=== PATIENT | male | born 1950 | race Caucasian/White ===

== ENCOUNTER 2017-05-25 22:51 | Inpatient (IN) | payer MEDICARE, OTHER ==
[2017-05-25] MEDS ORDERED: BISACODYL 10 MG SUPP PR (23:30)
[2017-05-25] MEDS ORDERED: ALBUTEROL 0.083% (NEB) 2.5 MG/3 ML AMP HHN (23:30)
[2017-05-25] MEDS: HEPARIN 5,000 UNIT/0.5 ML VIAL SC (23:30)
[2017-05-25] MEDS ORDERED: GLUCAGON 1 MG INJ IM (23:45)
[2017-05-25] MEDS ORDERED: GLUCOSE GEL 15 GRAM TUBE BUCCAL (23:45)
[2017-05-25] MEDS ORDERED: GLUCOSE GEL 15 GRAM TUBE PO ×2 (23:45)
[2017-05-26] MEDS ORDERED: PENDING SANTYL ORDER FOR WOUND CARE XX
[2017-05-26] MEDS: DEXTROSE 5%-0.45% NACL 1,000 ML IV ×4 (01:14→21:41)
[2017-05-26] MEDS: INSULIN ASPART [NOVOLOG] 3 ML PEN SC ×6 (01:20→21:33)
[2017-05-26] MEDS: ALBUTEROL 0.083% (NEB) 2.5 MG/3 ML AMP HHN ×6 (01:26→20:43)
[2017-05-26] MEDS: IPRATROPIUM (NEB) 0.5 MG/2.5 ML AMP HHN ×6 (01:26→20:43)
[2017-05-26 01:35] LABS: ADD MAN DIFF? NO
[2017-05-26 01:38] LABS: BASOPHILS % 0.3 % (0.0-2.0); EOSINOPHILS % 0.3 % (0.0-7.0); HEMATOCRIT 36.2 % (42.0-52.0); HEMOGLOBIN 11.6 g/dl (14.0-18.0); LYMPHOCYTES # 1.7 10^3/ul (0.8-2.9); LYMPHOCYTES % 15.7 % (15.0-51.0); MEAN CORPUSCULAR HEMOGLOBIN 28.4 pg (29.0-33.0); MEAN CORPUSCULAR VOLUME 88.5 fl (82.0-101.0); MEAN PLATELET VOLUME 12.9 fl (7.4-10.4); MONOCYTE # 0.6 10^3/ul (0.3-0.9); MONOCYTES % 5.1 % (0.0-11.0); NEUTROPHIL # 8.6 10^3/ul (1.6-7.5); NEUTROPHILS % 78.3 % (39.0-77.0); PLATELET COUNT 203 10^3/UL (140-415); RED BLOOD COUNT 4.09 10^6/ul (4.70-6.10); RED CELL DISTRIBUTION WIDTH 16.8 % (11.5-14.5)
[2017-05-26 02:06] LABS: INR 1.12; PROTIME 14.4 Sec (12.2-14.2); PT RATIO 1.1
[2017-05-26 02:07] LABS: PARTIAL THROMBOPLASTIN TIME 44.4 Sec (25.0-35.0)
[2017-05-26 02:08] LABS: ALANINE AMINOTRANSFERASE 77 IU/L (13-69); ALBUMIN 3.5 g/dl (3.3-4.9); ALBUMIN/GLOBULIN RATIO 0.64; ALKALINE PHOSPHATASE 168 IU/L (42-121); ANION GAP 13 (8-16); ASPARTATE AMINO TRANSFERASE 66 IU/L (15-46); BILIRUBIN,INDIRECT 0.5 mg/dl (0-1.1); BILIRUBIN,TOTAL 0.5 mg/dl (0.2-1.3); BLOOD UREA NITROGEN 29 mg/dl (7-20); CALCIUM 9.3 mg/dl (8.4-10.2); CARBON DIOXIDE 29 mmol/L (21-31); CHLORIDE 100 mmol/L (97-110); CREATININE 0.67 mg/dl (0.61-1.24); GLUCOSE 203 mg/dl (70-220); MAGNESIUM 1.9 mg/dl (1.7-2.5); PHOSPHORUS 3.8 mg/dl (2.5-4.9); POTASSIUM 3.8 mmol/L (3.5-5.1); SODIUM 138 mmol/L (135-144); TOTAL PROTEIN 8.9 g/dl (6.1-8.1)
[2017-05-26] MEDS ORDERED: NACL 0.9% 3 ML SYG IV (04:30)
[2017-05-26] MEDS: PANTOPRAZOLE 40 MG INJ IV (05:51)
[2017-05-26] MEDS: PIPER-TAZO 3.375 GM IV (PMX) 100 ML IVPB ×3 (05:51→21:18)
[2017-05-26] MEDS ORDERED: [UNRECOGNIZED DRUG - OTHER] IVPB (06:00)
[2017-05-26] MEDS ORDERED: PIPERACILLIN TAZO DEXTROSE ISO IVPB (06:00)
[2017-05-26] MEDS ORDERED: PANTOPRAZOLE 40 MG INJ IV (06:00)
[2017-05-26] MEDS ORDERED: COLLAGENASE 30 GM TUBE TOP (09:00)
[2017-05-26] MEDS: BACITRACIN 0.9 GM OINT TOP (09:00)
[2017-05-26] MEDS: LEVETIRACETAM 500 MG (PMX) 100 ML IVPB (09:54)
[2017-05-26] MEDS: INSULIN DETEMIR [LEVEMIR] 3ML CART SC ×2 (10:26→21:34)
[2017-05-26] MEDS: HEPARIN 5,000 UNIT/0.5 ML VIAL SC ×2 (10:27→21:34)
[2017-05-26] MEDS: ZINC OXIDE 20% 30 GM OINT TOP (12:27)
[2017-05-26] MEDS: NYSTATIN 30 GM POWDER BTL TOP (18:37)
[2017-05-26] MEDS: COLLAGENASE 30 GM TUBE TOP (18:38)
[2017-05-26] MEDS: FAMOTIDINE 20 MG INJ IV (21:22)
[2017-05-27] MEDS: ALBUTEROL 0.083% (NEB) 2.5 MG/3 ML AMP HHN ×6 (00:16→20:25)
[2017-05-27] MEDS: IPRATROPIUM (NEB) 0.5 MG/2.5 ML AMP HHN ×6 (00:16→20:25)
[2017-05-27] MEDS ORDERED: ACCU-CHEK XX (02:00)
[2017-05-27] MEDS: INSULIN ASPART [NOVOLOG] 3 ML PEN SC ×6 (02:45→20:42)
[2017-05-27 06:09] LABS: ADD MAN DIFF? NO
[2017-05-27 06:16] LABS: WHITE BLOOD COUNT 6.3 10^3/ul (4.8-10.8)
[2017-05-27 06:16] LABS: ABNORMAL IP MESSAGE 1; BASOPHILS % 0.5 % (0.0-2.0); EOSINOPHILS # 0.1 10^3/ul (0.0-0.5); EOSINOPHILS % 1.4 % (0.0-7.0); HEMATOCRIT 36.5 % (42.0-52.0); LYMPHOCYTES # 1.6 10^3/ul (0.8-2.9); LYMPHOCYTES % 25.5 % (15.0-51.0); MEAN CORPUSCULAR HGB CONC 30.1 g/dl (32.0-37.0); MEAN CORPUSCULAR VOLUME 92.9 fl (82.0-101.0); MEAN PLATELET VOLUME 13.6 fl (7.4-10.4); MONOCYTE # 0.4 10^3/ul (0.3-0.9); MONOCYTES % 6.3 % (0.0-11.0); NEUTROPHIL # 4.2 10^3/ul (1.6-7.5); PLATELET COUNT 115 10^3/UL (140-415); POSITIVE DIFF @See below; RED BLOOD COUNT 3.93 10^6/ul (4.70-6.10); RED CELL DISTRIBUTION WIDTH 16.6 % (11.5-14.5)
[2017-05-27] MEDS: PIPER-TAZO 3.375 GM IV (PMX) 100 ML IVPB ×3 (06:26→22:13)
[2017-05-27] MEDS: DEXTROSE 5%-0.45% NACL 1,000 ML IV ×3 (06:28→19:56)
[2017-05-27 06:51] LABS: ALANINE AMINOTRANSFERASE 95 IU/L (13-69); ALBUMIN 3.4 g/dl (3.3-4.9); ALBUMIN/GLOBULIN RATIO 0.61; ALKALINE PHOSPHATASE 150 IU/L (42-121); ANION GAP 11 (8-16); ASPARTATE AMINO TRANSFERASE 116 IU/L (15-46); BILIRUBIN,INDIRECT 0.7 mg/dl (0-1.1); BILIRUBIN,TOTAL 0.8 mg/dl (0.2-1.3); BLOOD UREA NITROGEN 17 mg/dl (7-20); CALCIUM 8.3 mg/dl (8.4-10.2); CARBON DIOXIDE 26 mmol/L (21-31); CHLORIDE 103 mmol/L (97-110); CREATININE 0.61 mg/dl (0.61-1.24); GLUCOSE 127 mg/dl (70-220); MAGNESIUM 1.8 mg/dl (1.7-2.5); POTASSIUM 3.9 mmol/L (3.5-5.1); SODIUM 136 mmol/L (135-144); TOTAL PROTEIN 8.9 g/dl (6.1-8.1)
[2017-05-27] MEDS: LEVETIRACETAM 500 MG (PMX) 100 ML IVPB (08:21)
[2017-05-27] MEDS: COLLAGENASE 30 GM TUBE TOP (08:22)
[2017-05-27] MEDS: BACITRACIN 0.5%/ZINC 28.35 GM OINT TOP ×2 (08:22→20:43)
[2017-05-27] MEDS: FAMOTIDINE 20 MG INJ IV ×2 (08:22→20:40)
[2017-05-27] MEDS: ZINC OXIDE 20% 30 GM OINT TOP (08:23)
[2017-05-27] MEDS: NYSTATIN 30 GM POWDER BTL TOP ×2 (08:23→20:43)
[2017-05-27] MEDS: INSULIN DETEMIR [LEVEMIR] 3ML CART SC (08:35)
[2017-05-27] MEDS: HEPARIN 5,000 UNIT/0.5 ML VIAL SC ×2 (08:36→20:49)
[2017-05-27 09:25] LABS: HEMOGLOBIN A1C 7.5 % (0-5.9)
[2017-05-27] MEDS: DEXTROSE 50% 50 ML SYRINGE IV (17:43)
[2017-05-27 18:51] LABS: GLUCOSE 183 mg/dl (70-220)
[2017-05-28] MEDS: INSULIN ASPART [NOVOLOG] 3 ML PEN SC ×8 (01:00→20:56)
[2017-05-28] MEDS: ALTEPLASE (CATHFLO) 2 MG INJ CATHETER (01:19)
[2017-05-28] MEDS: IPRATROPIUM (NEB) 0.5 MG/2.5 ML AMP HHN ×6 (01:30→20:43)
[2017-05-28] MEDS: ALBUTEROL 0.083% (NEB) 2.5 MG/3 ML AMP HHN ×6 (01:30→20:43)
[2017-05-28] MEDS: DEXTROSE 5%-0.45% NACL 1,000 ML IV ×4 (02:00→21:54)
[2017-05-28 06:04] LABS: ADD MAN DIFF? NO
[2017-05-28] MEDS: PIPER-TAZO 3.375 GM IV (PMX) 100 ML IVPB ×3 (06:05→21:54)
[2017-05-28 06:12] LABS: ABNORMAL IP MESSAGE 1; BASOPHILS % 0.4 % (0.0-2.0); EOSINOPHILS # 0.1 10^3/ul (0.0-0.5); EOSINOPHILS % 1.9 % (0.0-7.0); HEMATOCRIT 30.4 % (42.0-52.0); HEMOGLOBIN 9.4 g/dl (14.0-18.0); LYMPHOCYTES # 1.1 10^3/ul (0.8-2.9); LYMPHOCYTES % 20.5 % (15.0-51.0); MEAN CORPUSCULAR HEMOGLOBIN 28.1 pg (29.0-33.0); MEAN CORPUSCULAR HGB CONC 30.9 g/dl (32.0-37.0); MEAN PLATELET VOLUME 13.4 fl (7.4-10.4); MONOCYTE # 0.3 10^3/ul (0.3-0.9); MONOCYTES % 5.3 % (0.0-11.0); NEUTROPHIL # 3.8 10^3/ul (1.6-7.5); NEUTROPHILS % 71.7 % (39.0-77.0); PLATELET COUNT 141 10^3/UL (140-415); POSITIVE DIFF @See below; RED BLOOD COUNT 3.34 10^6/ul (4.70-6.10); RED CELL DISTRIBUTION WIDTH 16.2 % (11.5-14.5)
[2017-05-28 06:12] LABS: WHITE BLOOD COUNT 5.3 10^3/ul (4.8-10.8)
[2017-05-28 07:01] LABS: ALANINE AMINOTRANSFERASE 147 IU/L (13-69); ALBUMIN/GLOBULIN RATIO 0.62; ALKALINE PHOSPHATASE 154 IU/L (42-121); ANION GAP 11 (8-16); ASPARTATE AMINO TRANSFERASE 160 IU/L (15-46); BILIRUBIN,INDIRECT 0.7 mg/dl (0-1.1); BILIRUBIN,TOTAL 1.5 mg/dl (0.2-1.3); BLOOD UREA NITROGEN 8 mg/dl (7-20); CALCIUM 7.7 mg/dl (8.4-10.2); CARBON DIOXIDE 24 mmol/L (21-31); CHLORIDE 104 mmol/L (97-110); CREATININE 0.56 mg/dl (0.61-1.24); SODIUM 136 mmol/L (135-144); TOTAL PROTEIN 7.8 g/dl (6.1-8.1)
[2017-05-28 07:20] LABS: POTASSIUM 2.9 mmol/L (3.5-5.1)
[2017-05-28 07:21] LABS: GLUCOSE 426 mg/dl (70-220)
[2017-05-28] MEDS: BACITRACIN 0.5%/ZINC 28.35 GM OINT TOP ×2 (08:14→20:56)
[2017-05-28] MEDS: LEVETIRACETAM 500 MG (PMX) 100 ML IVPB (08:14)
[2017-05-28] MEDS: FAMOTIDINE 20 MG INJ IV ×2 (08:14→20:52)
[2017-05-28] MEDS: NYSTATIN 30 GM POWDER BTL TOP ×2 (08:15→20:57)
[2017-05-28] MEDS: COLLAGENASE 30 GM TUBE TOP (08:15)
[2017-05-28] MEDS: HEPARIN 5,000 UNIT/0.5 ML VIAL SC ×2 (08:34→21:01)
[2017-05-28] MEDS: POTASSIUM CHLORIDE 250 ML IVPB ×2 (09:28→14:06)
[2017-05-28] MEDS: INSULIN DETEMIR [LEVEMIR] 3ML CART SC (09:54)
[2017-05-28] MEDS: ZINC OXIDE 20% 30 GM OINT TOP (09:58)
[2017-05-28] MEDS: DEXTROSE 50% 50 ML SYRINGE IV (17:51)
[2017-05-28 18:40] LABS: GLUCOSE 63 mg/dl (70-220)
[2017-05-29] MEDS: INSULIN ASPART [NOVOLOG] 3 ML PEN SC ×6 (01:00→20:40)
[2017-05-29] MEDS: IPRATROPIUM (NEB) 0.5 MG/2.5 ML AMP HHN ×6 (01:45→21:24)
[2017-05-29] MEDS: ALBUTEROL 0.083% (NEB) 2.5 MG/3 ML AMP HHN ×6 (01:46→21:24)
[2017-05-29] MEDS: PIPER-TAZO 3.375 GM IV (PMX) 100 ML IVPB ×3 (05:32→22:32)
[2017-05-29 06:11] LABS: ADD MAN DIFF? NO
[2017-05-29 06:18] LABS: WHITE BLOOD COUNT 6.1 10^3/ul (4.8-10.8)
[2017-05-29 06:18] LABS: ABNORMAL IP MESSAGE 1; BASOPHILS % 0.3 % (0.0-2.0); EOSINOPHILS % 0.7 % (0.0-7.0); HEMATOCRIT 27.9 % (42.0-52.0); HEMOGLOBIN 8.7 g/dl (14.0-18.0); LYMPHOCYTES # 1.2 10^3/ul (0.8-2.9); LYMPHOCYTES % 18.8 % (15.0-51.0); MEAN CORPUSCULAR HEMOGLOBIN 28.3 pg (29.0-33.0); MEAN CORPUSCULAR HGB CONC 31.2 g/dl (32.0-37.0); MEAN CORPUSCULAR VOLUME 90.9 fl (82.0-101.0); MEAN PLATELET VOLUME 13.2 fl (7.4-10.4); MONOCYTE # 0.2 10^3/ul (0.3-0.9); MONOCYTES % 3.8 % (0.0-11.0); NEUTROPHIL # 4.7 10^3/ul (1.6-7.5); NEUTROPHILS % 76.1 % (39.0-77.0); PLATELET COUNT 126 10^3/UL (140-415); POSITIVE DIFF @See below; RED BLOOD COUNT 3.07 10^6/ul (4.70-6.10); RED CELL DISTRIBUTION WIDTH 16.1 % (11.5-14.5)
[2017-05-29 06:29] LABS: INR 1.15; PROTIME 14.7 Sec (12.2-14.2); PT RATIO 1.1
[2017-05-29 06:30] LABS: PARTIAL THROMBOPLASTIN TIME 33.4 Sec (25.0-35.0)
[2017-05-29] MEDS: FAMOTIDINE 20 MG INJ IV ×2 (07:57→20:40)
[2017-05-29] MEDS: LEVETIRACETAM 500 MG (PMX) 100 ML IVPB (07:57)
[2017-05-29] MEDS: DEXTROSE 5%-0.45% NACL 1,000 ML IV ×3 (08:00→23:16)
[2017-05-29] MEDS: INSULIN DETEMIR [LEVEMIR] 3ML CART SC (08:11)
[2017-05-29] MEDS: HEPARIN 5,000 UNIT/0.5 ML VIAL SC ×2 (08:12→20:44)
[2017-05-29 08:53] LABS: ALANINE AMINOTRANSFERASE 128 IU/L (13-69); ALBUMIN 3.2 g/dl (3.3-4.9); ALBUMIN/GLOBULIN RATIO 0.59; ALKALINE PHOSPHATASE 165 IU/L (42-121); ANION GAP 10 (8-16); ASPARTATE AMINO TRANSFERASE 102 IU/L (15-46); BLOOD UREA NITROGEN 5 mg/dl (7-20); CALCIUM 8.2 mg/dl (8.4-10.2); CARBON DIOXIDE 24 mmol/L (21-31); CHLORIDE 107 mmol/L (97-110); CREATININE 0.64 mg/dl (0.61-1.24); GLUCOSE 183 mg/dl (70-220); POTASSIUM 3.8 mmol/L (3.5-5.1); SODIUM 137 mmol/L (135-144); TOTAL PROTEIN 8.6 g/dl (6.1-8.1)
[2017-05-29 09:29] LABS: BILIRUBIN,INDIRECT 0.6 mg/dl (0-1.1); BILIRUBIN,TOTAL 0.6 mg/dl (0.2-1.3)
[2017-05-29] MEDS: NYSTATIN 30 GM POWDER BTL TOP ×2 (09:46→20:41)
[2017-05-29] MEDS: COLLAGENASE 30 GM TUBE TOP (09:46)
[2017-05-29] MEDS: BACITRACIN 0.5%/ZINC 28.35 GM OINT TOP ×2 (09:46→20:41)
[2017-05-29] MEDS: ZINC OXIDE 20% 30 GM OINT TOP (09:46)
[2017-05-30] MEDS: INSULIN ASPART [NOVOLOG] 3 ML PEN SC ×6 (01:00→21:00)
[2017-05-30] MEDS: IPRATROPIUM (NEB) 0.5 MG/2.5 ML AMP HHN ×6 (01:25→20:00)
[2017-05-30] MEDS: ALBUTEROL 0.083% (NEB) 2.5 MG/3 ML AMP HHN ×6 (01:25→20:00)
[2017-05-30] MEDS: PIPER-TAZO 3.375 GM IV (PMX) 100 ML IVPB ×3 (05:20→21:24)
[2017-05-30 05:45] LABS: ADD MAN DIFF? NO
[2017-05-30 05:55] LABS: WHITE BLOOD COUNT 9.6 10^3/ul (4.8-10.8)
[2017-05-30 05:55] LABS: BASOPHILS % 0.1 % (0.0-2.0); HEMATOCRIT 29.5 % (42.0-52.0); HEMOGLOBIN 9.1 g/dl (14.0-18.0); LYMPHOCYTES # 1.7 10^3/ul (0.8-2.9); LYMPHOCYTES % 17.7 % (15.0-51.0); MEAN CORPUSCULAR HEMOGLOBIN 27.8 pg (29.0-33.0); MEAN CORPUSCULAR HGB CONC 30.8 g/dl (32.0-37.0); MEAN CORPUSCULAR VOLUME 90.2 fl (82.0-101.0); MEAN PLATELET VOLUME 12.6 fl (7.4-10.4); MONOCYTE # 0.3 10^3/ul (0.3-0.9); MONOCYTES % 2.6 % (0.0-11.0); NEUTROPHIL # 7.6 10^3/ul (1.6-7.5); NEUTROPHILS % 79.3 % (39.0-77.0); PLATELET COUNT 126 10^3/UL (140-415); RED BLOOD COUNT 3.27 10^6/ul (4.70-6.10); RED CELL DISTRIBUTION WIDTH 15.9 % (11.5-14.5)
[2017-05-30 06:14] LABS: INR 1.37; PROTIME 16.9 Sec (12.2-14.2); PT RATIO 1.3
[2017-05-30 06:15] LABS: PARTIAL THROMBOPLASTIN TIME 50.3 Sec (25.0-35.0)
[2017-05-30 06:21] LABS: ALANINE AMINOTRANSFERASE 98 IU/L (13-69); ALBUMIN 2.9 g/dl (3.3-4.9); ALBUMIN/GLOBULIN RATIO 0.61; ALKALINE PHOSPHATASE 150 IU/L (42-121); ANION GAP 9 (8-16); ASPARTATE AMINO TRANSFERASE 58 IU/L (15-46); BILIRUBIN,INDIRECT 0.6 mg/dl (0-1.1); BILIRUBIN,TOTAL 0.6 mg/dl (0.2-1.3); BLOOD UREA NITROGEN 4 mg/dl (7-20); CALCIUM 8.3 mg/dl (8.4-10.2); CARBON DIOXIDE 23 mmol/L (21-31); CHLORIDE 108 mmol/L (97-110); CREATININE 0.61 mg/dl (0.61-1.24); GLUCOSE 188 mg/dl (70-220); POTASSIUM 3.3 mmol/L (3.5-5.1); SODIUM 137 mmol/L (135-144); TOTAL PROTEIN 7.6 g/dl (6.1-8.1)
[2017-05-30] MEDS: LEVETIRACETAM 500 MG (PMX) 100 ML IVPB (08:30)
[2017-05-30] MEDS: COLLAGENASE 30 GM TUBE TOP (08:30)
[2017-05-30] MEDS: NYSTATIN 30 GM POWDER BTL TOP ×2 (08:30→21:24)
[2017-05-30] MEDS: FAMOTIDINE 20 MG INJ IV ×2 (08:30→21:24)
[2017-05-30] MEDS: ZINC OXIDE 20% 30 GM OINT TOP (08:30)
[2017-05-30] MEDS: BACITRACIN 0.5%/ZINC 28.35 GM OINT TOP ×2 (08:30→21:24)
[2017-05-30] MEDS: INSULIN DETEMIR [LEVEMIR] 3ML CART SC (08:45)
[2017-05-30] MEDS: DEXTROSE 5%-0.45% NACL 1,000 ML IV (18:12)
[2017-05-31] MEDS: ALBUTEROL 0.083% (NEB) 2.5 MG/3 ML AMP HHN ×6 (00:54→20:13)
[2017-05-31] MEDS: IPRATROPIUM (NEB) 0.5 MG/2.5 ML AMP HHN ×6 (00:54→20:13)
[2017-05-31] MEDS: INSULIN ASPART [NOVOLOG] 3 ML PEN SC ×6 (01:00→20:28)
[2017-05-31] MEDS: PIPER-TAZO 3.375 GM IV (PMX) 100 ML IVPB ×3 (05:26→21:27)
[2017-05-31 05:31] LABS: ADD MAN DIFF? NO
[2017-05-31 05:34] LABS: WHITE BLOOD COUNT 5.7 10^3/ul (4.8-10.8)
[2017-05-31 05:34] LABS: BASOPHILS % 0.4 % (0.0-2.0); EOSINOPHILS # 0.1 10^3/ul (0.0-0.5); EOSINOPHILS % 1.1 % (0.0-7.0); HEMATOCRIT 29.9 % (42.0-52.0); HEMOGLOBIN 9.3 g/dl (14.0-18.0); LYMPHOCYTES # 1.2 10^3/ul (0.8-2.9); LYMPHOCYTES % 21.3 % (15.0-51.0); MEAN CORPUSCULAR HEMOGLOBIN 28.1 pg (29.0-33.0); MEAN CORPUSCULAR HGB CONC 31.1 g/dl (32.0-37.0); MEAN CORPUSCULAR VOLUME 90.3 fl (82.0-101.0); MEAN PLATELET VOLUME 11.9 fl (7.4-10.4); MONOCYTE # 0.3 10^3/ul (0.3-0.9); MONOCYTES % 5.6 % (0.0-11.0); NEUTROPHILS % 71.2 % (39.0-77.0); PLATELET COUNT 133 10^3/UL (140-415); RED BLOOD COUNT 3.31 10^6/ul (4.70-6.10); RED CELL DISTRIBUTION WIDTH 16.2 % (11.5-14.5)
[2017-05-31 05:56] LABS: ANION GAP 9 (8-16); BLOOD UREA NITROGEN 4 mg/dl (7-20); CALCIUM 8.8 mg/dl (8.4-10.2); CARBON DIOXIDE 25 mmol/L (21-31); CHLORIDE 108 mmol/L (97-110); CREATININE 0.62 mg/dl (0.61-1.24); GLUCOSE 147 mg/dl (70-220); SODIUM 139 mmol/L (135-144)
[2017-05-31] MEDS ORDERED: NEOSTIGMINE 3 MG/3 ML SYRINGE (07:00)
[2017-05-31] MEDS ORDERED: GLYCOPYRROLATE 0.4 MG INJ (07:00)
[2017-05-31] MEDS: FAMOTIDINE 20 MG INJ IV ×2 (10:15→21:27)
[2017-05-31] MEDS: COLLAGENASE 30 GM TUBE TOP (10:15)
[2017-05-31] MEDS: BACITRACIN 0.5%/ZINC 28.35 GM OINT TOP ×2 (10:16→21:28)
[2017-05-31] MEDS: NYSTATIN 30 GM POWDER BTL TOP ×2 (10:16→21:28)
[2017-05-31] MEDS: ZINC OXIDE 20% 30 GM OINT TOP (10:16)
[2017-05-31] MEDS: LEVETIRACETAM 500 MG (PMX) 100 ML IVPB (10:17)
[2017-05-31] MEDS: INSULIN DETEMIR [LEVEMIR] 3ML CART SC (10:48)
[2017-05-31] MEDS ORDERED: IOHEXOL 300MG/ML 30 ML BTL ×2 (11:51→11:54)
[2017-05-31] MEDS ORDERED: ROCURONIUM 50 MG INJ (12:19)
[2017-05-31] MEDS ORDERED: PROPOFOL 20 ML (12:19)
[2017-05-31] MEDS ORDERED: FENTAnyl 50 MCG/ML VIAL (12:20)
[2017-05-31] MEDS ORDERED: PHENYLephrine (100 MCG/ML) 5ML SYG (12:20)
[2017-05-31] MEDS: DEXTROSE 5%-0.45% NACL 1,000 ML IV (16:25)
[2017-05-31 17:42] LABS: AADO2 Arterial 70.3 mmHg (7.0-24.0); Arterial Base Excess -1.5 mmol/L (-3.0-3); Arterial COHb 0 % (0.0-3.0); Arterial Fraction of Oxyhgb 93.9 % (93.0-99.0); Arterial HCO3 24.2 mmol/L (22.0-26.0); Arterial MetHb 0.1 % (0.0-1.5); Arterial Total Hemglobin 11.8 g/dl (12.0-18.0); Arterial pCO2 44.6 mmhg (35-45); MODE TRACH COLLAR; Site LB
[2017-05-31] MEDS: DEXTROSE 50% 50 ML SYRINGE IV (19:46)
[2017-05-31] MEDS: INDOMETHACIN 50 MG SUPP PR (19:47)
[2017-05-31] MEDS: POTASSIUM CHLORIDE 250 ML IVPB (23:23)
[2017-06-01] MEDS: ALBUTEROL 0.083% (NEB) 2.5 MG/3 ML AMP HHN ×6 (00:36→20:00)
[2017-06-01] MEDS: IPRATROPIUM (NEB) 0.5 MG/2.5 ML AMP HHN ×6 (00:36→20:00)
[2017-06-01] MEDS: INSULIN ASPART [NOVOLOG] 3 ML PEN SC ×6 (01:00→20:47)
[2017-06-01] MEDS: PIPER-TAZO 3.375 GM IV (PMX) 100 ML IVPB ×3 (05:11→21:03)
[2017-06-01 06:36] LABS: ADD MAN DIFF? NO
[2017-06-01 06:45] LABS: BASOPHILS % 0.3 % (0.0-2.0); EOSINOPHILS # 0.1 10^3/ul (0.0-0.5); EOSINOPHILS % 1.4 % (0.0-7.0); HEMATOCRIT 29.1 % (42.0-52.0); HEMOGLOBIN 8.9 g/dl (14.0-18.0); LYMPHOCYTES # 1.1 10^3/ul (0.8-2.9); LYMPHOCYTES % 18.2 % (15.0-51.0); MEAN CORPUSCULAR HEMOGLOBIN 27.4 pg (29.0-33.0); MEAN CORPUSCULAR HGB CONC 30.6 g/dl (32.0-37.0); MEAN CORPUSCULAR VOLUME 89.5 fl (82.0-101.0); MEAN PLATELET VOLUME 12.7 fl (7.4-10.4); MONOCYTE # 0.3 10^3/ul (0.3-0.9); NEUTROPHIL # 4.7 10^3/ul (1.6-7.5); NEUTROPHILS % 74.9 % (39.0-77.0); PLATELET COUNT 153 10^3/UL (140-415); RED BLOOD COUNT 3.25 10^6/ul (4.70-6.10); RED CELL DISTRIBUTION WIDTH 15.9 % (11.5-14.5)
[2017-06-01 06:45] LABS: WHITE BLOOD COUNT 6.3 10^3/ul (4.8-10.8)
[2017-06-01 07:14] LABS: ANION GAP 11 (8-16); BLOOD UREA NITROGEN 3 mg/dl (7-20); CALCIUM 8.5 mg/dl (8.4-10.2); CARBON DIOXIDE 24 mmol/L (21-31); CHLORIDE 111 mmol/L (97-110); CREATININE 0.61 mg/dl (0.61-1.24); GLUCOSE 110 mg/dl (70-220); POTASSIUM 3.5 mmol/L (3.5-5.1); SODIUM 142 mmol/L (135-144)
[2017-06-01] MEDS: FAMOTIDINE 20 MG INJ IV ×2 (09:03→20:47)
[2017-06-01] MEDS: BACITRACIN 0.5%/ZINC 28.35 GM OINT TOP ×2 (09:03→20:47)
[2017-06-01] MEDS: COLLAGENASE 30 GM TUBE TOP (09:03)
[2017-06-01] MEDS: LEVETIRACETAM 500 MG (PMX) 100 ML IVPB (09:03)
[2017-06-01] MEDS: ZINC OXIDE 20% 30 GM OINT TOP (09:03)
[2017-06-01] MEDS: NYSTATIN 30 GM POWDER BTL TOP ×2 (09:04→20:48)
[2017-06-01] MEDS: INSULIN DETEMIR [LEVEMIR] 3ML CART SC (09:32)
[2017-06-01] MEDS: DEXTROSE 5%-0.45% NACL 1,000 ML IV ×2 (11:18→20:48)
[2017-06-01 13:11] LABS: INR 1.33; PROTIME 16.6 Sec (12.2-14.2); PT RATIO 1.3
[2017-06-01 13:13] LABS: PARTIAL THROMBOPLASTIN TIME 46.8 Sec (25.0-35.0)
[2017-06-01] MEDS: DEXTROSE 50% 50 ML SYRINGE IV ×2 (14:03→17:31)
[2017-06-01] MEDS: ALTEPLASE (CATHFLO) 2 MG INJ CATHETER (14:52)
[2017-06-01 18:25] LABS: GLUCOSE 217 mg/dl (70-220)
[2017-06-02] MEDS: ALBUTEROL 0.083% (NEB) 2.5 MG/3 ML AMP HHN ×6 (00:33→20:21)
[2017-06-02] MEDS: IPRATROPIUM (NEB) 0.5 MG/2.5 ML AMP HHN ×6 (00:33→20:21)
[2017-06-02] MEDS: INSULIN ASPART [NOVOLOG] 3 ML PEN SC ×6 (00:37→20:36)
[2017-06-02] MEDS: DEXTROSE 5%-0.45% NACL 1,000 ML IV ×2 (05:20→14:28)
[2017-06-02] MEDS: PIPER-TAZO 3.375 GM IV (PMX) 100 ML IVPB ×3 (05:21→21:05)
[2017-06-02 05:37] LABS: ADD MAN DIFF? NO
[2017-06-02 06:04] LABS: WHITE BLOOD COUNT 7.3 10^3/ul (4.8-10.8)
[2017-06-02 06:04] LABS: BASOPHILS % 0.3 % (0.0-2.0); EOSINOPHILS # 0.1 10^3/ul (0.0-0.5); EOSINOPHILS % 0.8 % (0.0-7.0); HEMOGLOBIN 8.9 g/dl (14.0-18.0); LYMPHOCYTES # 1.3 10^3/ul (0.8-2.9); LYMPHOCYTES % 17.9 % (15.0-51.0); MEAN CORPUSCULAR HEMOGLOBIN 28.3 pg (29.0-33.0); MEAN CORPUSCULAR HGB CONC 31.8 g/dl (32.0-37.0); MEAN CORPUSCULAR VOLUME 88.9 fl (82.0-101.0); MEAN PLATELET VOLUME 12.1 fl (7.4-10.4); MONOCYTE # 0.3 10^3/ul (0.3-0.9); MONOCYTES % 3.6 % (0.0-11.0); NEUTROPHIL # 5.6 10^3/ul (1.6-7.5); PLATELET COUNT 158 10^3/UL (140-415); RED BLOOD COUNT 3.15 10^6/ul (4.70-6.10); RED CELL DISTRIBUTION WIDTH 16.1 % (11.5-14.5)
[2017-06-02 06:14] LABS: ANION GAP 7 (8-16); BLOOD UREA NITROGEN 3 mg/dl (7-20); CALCIUM 8.1 mg/dl (8.4-10.2); CARBON DIOXIDE 24 mmol/L (21-31); CHLORIDE 110 mmol/L (97-110); CREATININE 0.62 mg/dl (0.61-1.24); GLUCOSE 139 mg/dl (70-220); SODIUM 138 mmol/L (135-144)
[2017-06-02] MEDS: FAMOTIDINE 20 MG INJ IV ×2 (08:16→20:34)
[2017-06-02] MEDS: LEVETIRACETAM 500 MG (PMX) 100 ML IVPB (08:17)
[2017-06-02] MEDS: COLLAGENASE 30 GM TUBE TOP (08:55)
[2017-06-02] MEDS: NYSTATIN 30 GM POWDER BTL TOP ×2 (08:55→20:35)
[2017-06-02] MEDS: ZINC OXIDE 20% 30 GM OINT TOP (08:55)
[2017-06-02] MEDS: BACITRACIN 0.5%/ZINC 28.35 GM OINT TOP ×2 (08:55→20:35)
[2017-06-02] MEDS: INSULIN DETEMIR [LEVEMIR] 3ML CART SC (08:58)
[2017-06-02] MEDS: POTASSIUM CHLORIDE 250 ML IVPB (10:33)
[2017-06-02 10:45] LABS: INR 1.36; PROTIME 16.8 Sec (12.2-14.2); PT RATIO 1.3
[2017-06-02 10:46] LABS: PARTIAL THROMBOPLASTIN TIME 48.9 Sec (25.0-35.0)
[2017-06-02] MEDS ORDERED: SOD CHLORIDE 0.9% 250 ML IV* (11:23)
[2017-06-02 15:29] LABS: CHOL/HDL RATIO 6.8 RATIO; HDL CHOLESTEROL 19 mg/dl (30-78); LDL CHOLESTEROL,CALCULATED 95 mg/dl; TRIGLYCERIDES 83 mg/dl (0-149)
[2017-06-02 15:29] LABS: CHOLESTEROL 131 mg/dl (100-200)
[2017-06-02] MEDS: TPN 1,000 ML IV (20:34)
[2017-06-03] MEDS: INSULIN ASPART [NOVOLOG] 3 ML PEN SC ×6 (01:00→21:00)
[2017-06-03] MEDS: ALBUTEROL 0.083% (NEB) 2.5 MG/3 ML AMP HHN ×6 (01:18→20:00)
[2017-06-03] MEDS: IPRATROPIUM (NEB) 0.5 MG/2.5 ML AMP HHN ×6 (01:18→20:00)
[2017-06-03] MEDS: PIPER-TAZO 3.375 GM IV (PMX) 100 ML IVPB ×3 (05:16→21:56)
[2017-06-03 06:13] LABS: ADD MAN DIFF? NO
[2017-06-03 06:15] LABS: BASOPHILS % 0.3 % (0.0-2.0); EOSINOPHILS # 0.1 10^3/ul (0.0-0.5); EOSINOPHILS % 1.3 % (0.0-7.0); HEMATOCRIT 27.9 % (42.0-52.0); HEMOGLOBIN 8.8 g/dl (14.0-18.0); LYMPHOCYTES # 1.4 10^3/ul (0.8-2.9); LYMPHOCYTES % 22.6 % (15.0-51.0); MEAN CORPUSCULAR HEMOGLOBIN 28.2 pg (29.0-33.0); MEAN CORPUSCULAR HGB CONC 31.5 g/dl (32.0-37.0); MEAN CORPUSCULAR VOLUME 89.4 fl (82.0-101.0); MEAN PLATELET VOLUME 12.4 fl (7.4-10.4); MONOCYTE # 0.3 10^3/ul (0.3-0.9); NEUTROPHIL # 4.4 10^3/ul (1.6-7.5); NEUTROPHILS % 70.5 % (39.0-77.0); PLATELET COUNT 168 10^3/UL (140-415); RED BLOOD COUNT 3.12 10^6/ul (4.70-6.10); RED CELL DISTRIBUTION WIDTH 16.1 % (11.5-14.5)
[2017-06-03 06:15] LABS: WHITE BLOOD COUNT 6.2 10^3/ul (4.8-10.8)
[2017-06-03 06:32] LABS: PROTIME 16.3 Sec (12.2-14.2); PT RATIO 1.3
[2017-06-03 06:33] LABS: PARTIAL THROMBOPLASTIN TIME 39.4 Sec (25.0-35.0)
[2017-06-03 06:40] LABS: PHOSPHORUS 2.9 mg/dl (2.5-4.9)
[2017-06-03 06:42] LABS: ALANINE AMINOTRANSFERASE 38 IU/L (13-69); ALBUMIN 3.2 g/dl (3.3-4.9); ALBUMIN/GLOBULIN RATIO 0.66; ALKALINE PHOSPHATASE 139 IU/L (42-121); ANION GAP 9 (8-16); ASPARTATE AMINO TRANSFERASE 30 IU/L (15-46); BILIRUBIN,INDIRECT 0.6 mg/dl (0-1.1); BILIRUBIN,TOTAL 0.6 mg/dl (0.2-1.3); BLOOD UREA NITROGEN 2 mg/dl (7-20); CALCIUM 8.7 mg/dl (8.4-10.2); CARBON DIOXIDE 26 mmol/L (21-31); CHLORIDE 110 mmol/L (97-110); CREATININE 0.64 mg/dl (0.61-1.24); GLUCOSE 124 mg/dl (70-220); MAGNESIUM 1.6 mg/dl (1.7-2.5); POTASSIUM 3.4 mmol/L (3.5-5.1); SODIUM 142 mmol/L (135-144); TRIGLYCERIDES 98 mg/dl (0-149)
[2017-06-03 06:47] LABS: PREALBUMIN 10.6 mg/dl (17.6-36.0)
[2017-06-03] MEDS: COLLAGENASE 30 GM TUBE TOP (08:29)
[2017-06-03] MEDS: ZINC OXIDE 20% 30 GM OINT TOP (08:29)
[2017-06-03] MEDS: BACITRACIN 0.5%/ZINC 28.35 GM OINT TOP ×2 (08:29→21:53)
[2017-06-03] MEDS: NYSTATIN 30 GM POWDER BTL TOP ×2 (08:30→21:53)
[2017-06-03] MEDS: LEVETIRACETAM 500 MG (PMX) 100 ML IVPB (08:36)
[2017-06-03] MEDS: FAMOTIDINE 20 MG INJ IV ×2 (08:36→21:09)
[2017-06-03] MEDS: INSULIN DETEMIR [LEVEMIR] 3ML CART SC (08:46)
[2017-06-03 12:48] LABS: TYPE AND SCREEN 1 1
[2017-06-03] MEDS: SOD CHLORIDE 0.9% 250 ML IV* (12:56)
[2017-06-03] MEDS: MAGNESIUM SULFATE 1 GM/D5W 100 ML IVPB (14:11)
[2017-06-03 14:23] LABS: INR 1.16; PROTIME 14.8 Sec (12.2-14.2); PT RATIO 1.2
[2017-06-03] MEDS: POTASSIUM CHLORIDE 250 ML IVPB (17:04)
[2017-06-03] MEDS: TPN 1,000 ML IV (21:40)
[2017-06-03] MEDS: FAT EMULSION 20% 250 ML IV (21:44)
[2017-06-04] MEDS: INSULIN ASPART [NOVOLOG] 3 ML PEN SC ×6 (01:00→21:47)
[2017-06-04] MEDS: IPRATROPIUM (NEB) 0.5 MG/2.5 ML AMP HHN ×8 (01:24→20:22)
[2017-06-04] MEDS: ALBUTEROL 0.083% (NEB) 2.5 MG/3 ML AMP HHN ×6 (01:24→20:22)
[2017-06-04] MEDS: PIPER-TAZO 3.375 GM IV (PMX) 100 ML IVPB ×3 (05:36→21:29)
[2017-06-04 05:56] LABS: ADD MAN DIFF? NO
[2017-06-04 06:15] LABS: INR 1.88; PARTIAL THROMBOPLASTIN TIME 21.1 Sec (25.0-35.0); PROTIME 21.8 Sec (12.2-14.2); PT RATIO 1.7
[2017-06-04 06:22] LABS: ANION GAP 11 (8-16); BLOOD UREA NITROGEN 6 mg/dl (7-20); CARBON DIOXIDE 26 mmol/L (21-31); CHLORIDE 109 mmol/L (97-110); CREATININE 0.63 mg/dl (0.61-1.24); GLUCOSE 142 mg/dl (70-220); POTASSIUM 4.6 mmol/L (3.5-5.1); SODIUM 141 mmol/L (135-144)
[2017-06-04] MEDS: FAMOTIDINE 20 MG INJ IV ×2 (08:03→22:16)
[2017-06-04] MEDS: COLLAGENASE 30 GM TUBE TOP (08:04)
[2017-06-04] MEDS: LEVETIRACETAM 500 MG (PMX) 100 ML IVPB (08:04)
[2017-06-04] MEDS: BACITRACIN 0.5%/ZINC 28.35 GM OINT TOP ×2 (08:04→21:28)
[2017-06-04] MEDS: ZINC OXIDE 20% 30 GM OINT TOP (08:04)
[2017-06-04] MEDS: NYSTATIN 30 GM POWDER BTL TOP ×2 (08:05→21:28)
[2017-06-04 08:19] LABS: WHITE BLOOD COUNT 8.1 10^3/ul (4.8-10.8)
[2017-06-04 08:19] LABS: BASOPHILS % 0.4 % (0.0-2.0); EOSINOPHILS # 0.1 10^3/ul (0.0-0.5); EOSINOPHILS % 0.6 % (0.0-7.0); HEMATOCRIT 31.4 % (42.0-52.0); HEMOGLOBIN 9.5 g/dl (14.0-18.0); LYMPHOCYTES # 1.3 10^3/ul (0.8-2.9); LYMPHOCYTES % 15.6 % (15.0-51.0); MEAN CORPUSCULAR HEMOGLOBIN 27.9 pg (29.0-33.0); MEAN CORPUSCULAR HGB CONC 30.3 g/dl (32.0-37.0); MEAN CORPUSCULAR VOLUME 92.4 fl (82.0-101.0); MEAN PLATELET VOLUME 11.5 fl (7.4-10.4); MONOCYTE # 0.3 10^3/ul (0.3-0.9); MONOCYTES % 4.1 % (0.0-11.0); NEUTROPHIL # 6.4 10^3/ul (1.6-7.5); NEUTROPHILS % 78.8 % (39.0-77.0); PLATELET COUNT 156 10^3/UL (140-415); RED CELL DISTRIBUTION WIDTH 16.1 % (11.5-14.5)
[2017-06-04] MEDS: INSULIN DETEMIR [LEVEMIR] 3ML CART SC (10:40)
[2017-06-04] MEDS: TPN 1,000 ML IV ×3 (17:51→21:30)
[2017-06-05] MEDS: ALBUTEROL 0.083% (NEB) 2.5 MG/3 ML AMP HHN ×6 (00:07→20:30)
[2017-06-05] MEDS: IPRATROPIUM (NEB) 0.5 MG/2.5 ML AMP HHN ×6 (00:07→20:30)
[2017-06-05] MEDS: INSULIN ASPART [NOVOLOG] 3 ML PEN SC ×6 (01:07→20:48)
[2017-06-05] MEDS: PIPER-TAZO 3.375 GM IV (PMX) 100 ML IVPB ×3 (05:39→21:27)
[2017-06-05 07:39] LABS: ANION GAP 10 (8-16); BLOOD UREA NITROGEN 13 mg/dl (7-20); CALCIUM 8.9 mg/dl (8.4-10.2); CARBON DIOXIDE 27 mmol/L (21-31); CHLORIDE 105 mmol/L (97-110); CREATININE 0.64 mg/dl (0.61-1.24); GLUCOSE 186 mg/dl (70-220); MAGNESIUM 2.1 mg/dl (1.7-2.5); PHOSPHORUS 2.7 mg/dl (2.5-4.9); POTASSIUM 4.2 mmol/L (3.5-5.1); SODIUM 138 mmol/L (135-144)
[2017-06-05] MEDS: FAMOTIDINE 20 MG INJ IV ×2 (08:12→20:38)
[2017-06-05] MEDS: LEVETIRACETAM 500 MG (PMX) 100 ML IVPB (08:12)
[2017-06-05] MEDS: COLLAGENASE 30 GM TUBE TOP (08:58)
[2017-06-05] MEDS: BACITRACIN 0.5%/ZINC 28.35 GM OINT TOP ×2 (08:59→20:33)
[2017-06-05] MEDS: NYSTATIN 30 GM POWDER BTL TOP ×2 (08:59→20:33)
[2017-06-05] MEDS: ZINC OXIDE 20% 30 GM OINT TOP (08:59)
[2017-06-05] MEDS: INSULIN DETEMIR [LEVEMIR] 3ML CART SC (09:15)
[2017-06-05] MEDS: SOD CHLORIDE 0.9% 250 ML IV* (10:10)
[2017-06-05] MEDS: TPN 1,000 ML IV (16:41)
[2017-06-06] MEDS: TPN 1,000 ML IV ×2 (00:28→12:47)
[2017-06-06] MEDS: ALBUTEROL 0.083% (NEB) 2.5 MG/3 ML AMP HHN ×5 (00:50→20:16)
[2017-06-06] MEDS: IPRATROPIUM (NEB) 0.5 MG/2.5 ML AMP HHN ×5 (00:50→20:16)
[2017-06-06] MEDS: INSULIN ASPART [NOVOLOG] 3 ML PEN SC ×7 (01:20→22:11)
[2017-06-06 05:24] LABS: TYPE AND SCREEN 1 1
[2017-06-06] MEDS: PIPER-TAZO 3.375 GM IV (PMX) 100 ML IVPB ×3 (06:33→21:47)
[2017-06-06] MEDS: COLLAGENASE 30 GM TUBE TOP (09:02)
[2017-06-06] MEDS: ZINC OXIDE 20% 30 GM OINT TOP (09:02)
[2017-06-06] MEDS: BACITRACIN 0.5%/ZINC 28.35 GM OINT TOP ×2 (09:02→21:48)
[2017-06-06] MEDS: NYSTATIN 30 GM POWDER BTL TOP ×2 (09:02→21:48)
[2017-06-06] MEDS: INSULIN DETEMIR [LEVEMIR] 3ML CART SC (09:36)
[2017-06-06] MEDS: FAMOTIDINE 20 MG INJ IV (11:33)
[2017-06-06] MEDS: LEVETIRACETAM 500 MG (PMX) 100 ML IVPB (11:33)
[2017-06-06 11:50] LABS: ADD MAN DIFF? NO
[2017-06-06 11:56] LABS: BASOPHILS % 0.4 % (0.0-2.0); EOSINOPHILS # 0.1 10^3/ul (0.0-0.5); EOSINOPHILS % 1.8 % (0.0-7.0); HEMATOCRIT 26.2 % (42.0-52.0); LYMPHOCYTES # 1.3 10^3/ul (0.8-2.9); LYMPHOCYTES % 25.9 % (15.0-51.0); MEAN CORPUSCULAR HEMOGLOBIN 27.9 pg (29.0-33.0); MEAN CORPUSCULAR HGB CONC 30.5 g/dl (32.0-37.0); MEAN CORPUSCULAR VOLUME 91.3 fl (82.0-101.0); MEAN PLATELET VOLUME 11.2 fl (7.4-10.4); MONOCYTE # 0.3 10^3/ul (0.3-0.9); MONOCYTES % 6.5 % (0.0-11.0); NEUTROPHIL # 3.2 10^3/ul (1.6-7.5); PLATELET COUNT 166 10^3/UL (140-415); RED BLOOD COUNT 2.87 10^6/ul (4.70-6.10); RED CELL DISTRIBUTION WIDTH 15.8 % (11.5-14.5)
[2017-06-06 11:56] LABS: WHITE BLOOD COUNT 4.9 10^3/ul (4.8-10.8)
[2017-06-06 12:16] LABS: ANION GAP 9 (8-16); BLOOD UREA NITROGEN 17 mg/dl (7-20); CALCIUM 9.4 mg/dl (8.4-10.2); CARBON DIOXIDE 31 mmol/L (21-31); CHLORIDE 103 mmol/L (97-110); CREATININE 0.68 mg/dl (0.61-1.24); GLUCOSE 202 mg/dl (70-220); POTASSIUM 3.8 mmol/L (3.5-5.1); SODIUM 139 mmol/L (135-144)
[2017-06-06 12:17] LABS: INR 1.13; PROTIME 14.5 Sec (12.2-14.2); PT RATIO 1.1
[2017-06-06] MEDS: PROPOFOL 40 ML (15:40)
[2017-06-06] MEDS: SOD CHLORIDE 0.9% 500 ML ×2 (15:45→17:50)
[2017-06-06] MEDS: IOHEXOL 300MG/ML 150 ML BTL (15:50)
[2017-06-06] MEDS: LIDOCAINE 1% (MDV) 20 ML INJ (15:50)
[2017-06-06] MEDS ORDERED: ONDANSETRON 4 MG INJ IV (17:30)
[2017-06-06] MEDS ORDERED: EPHEDrine SULFATE 50 MG/5 ML SYG IV (17:30)
[2017-06-06] MEDS ORDERED: hydrALAzine 20 MG INJ IV (17:30)
[2017-06-06] MEDS ORDERED: FENTAnyl 50 MCG/ML VIAL IV ×3 (17:30)
[2017-06-06] MEDS ORDERED: ALBUTEROL 0.083% (NEB) 2.5 MG/3 ML AMP HHN (17:30)
[2017-06-06] MEDS: FAMOTIDINE 20 MG TAB PO (21:00)
[2017-06-06] MEDS: FAT EMULSION 20% 250 ML IV (21:48)
[2017-06-07] MEDS: IPRATROPIUM (NEB) 0.5 MG/2.5 ML AMP HHN ×6 (01:46→21:05)
[2017-06-07] MEDS: ALBUTEROL 0.083% (NEB) 2.5 MG/3 ML AMP HHN ×6 (01:46→21:05)
[2017-06-07] MEDS: INSULIN ASPART [NOVOLOG] 3 ML PEN SC ×6 (01:58→21:41)
[2017-06-07] MEDS: PIPER-TAZO 3.375 GM IV (PMX) 100 ML IVPB ×3 (05:30→21:37)
[2017-06-07 06:09] LABS: ADD MAN DIFF? NO
[2017-06-07 06:18] LABS: WHITE BLOOD COUNT 6.6 10^3/ul (4.8-10.8)
[2017-06-07 06:18] LABS: BASOPHILS % 0.5 % (0.0-2.0); EOSINOPHILS % 0.6 % (0.0-7.0); HEMATOCRIT 31.8 % (42.0-52.0); HEMOGLOBIN 9.9 g/dl (14.0-18.0); LYMPHOCYTES % 15.8 % (15.0-51.0); MEAN CORPUSCULAR HEMOGLOBIN 28.7 pg (29.0-33.0); MEAN CORPUSCULAR HGB CONC 31.1 g/dl (32.0-37.0); MEAN CORPUSCULAR VOLUME 92.2 fl (82.0-101.0); MEAN PLATELET VOLUME 11.8 fl (7.4-10.4); MONOCYTE # 0.3 10^3/ul (0.3-0.9); MONOCYTES % 4.1 % (0.0-11.0); NEUTROPHIL # 5.2 10^3/ul (1.6-7.5); NEUTROPHILS % 78.7 % (39.0-77.0); PLATELET COUNT 166 10^3/UL (140-415); RED BLOOD COUNT 3.45 10^6/ul (4.70-6.10); RED CELL DISTRIBUTION WIDTH 15.5 % (11.5-14.5)
[2017-06-07 06:52] LABS: ANION GAP 15 (8-16); BLOOD UREA NITROGEN 18 mg/dl (7-20); CARBON DIOXIDE 26 mmol/L (21-31); CHLORIDE 104 mmol/L (97-110); CREATININE 0.64 mg/dl (0.61-1.24); GLUCOSE 228 mg/dl (70-220); POTASSIUM 4.6 mmol/L (3.5-5.1); SODIUM 140 mmol/L (135-144)
[2017-06-07 07:22] LABS: MAGNESIUM 1.8 mg/dl (1.7-2.5)
[2017-06-07 07:22] LABS: PHOSPHORUS 2.3 mg/dl (2.5-4.9)
[2017-06-07] MEDS: TPN 1,000 ML IV ×2 (08:09→23:13)
[2017-06-07] MEDS: FAMOTIDINE 20 MG TAB PO ×2 (08:36→21:00)
[2017-06-07] MEDS: LEVETIRACETAM 500 MG (PMX) 100 ML IVPB (08:41)
[2017-06-07] MEDS: INSULIN DETEMIR [LEVEMIR] 3ML CART SC (08:55)
[2017-06-07] MEDS: COLLAGENASE 30 GM TUBE TOP (13:08)
[2017-06-07] MEDS: BACITRACIN 0.5%/ZINC 28.35 GM OINT TOP ×2 (13:09→21:42)
[2017-06-07] MEDS: ZINC OXIDE 20% 30 GM OINT TOP (13:10)
[2017-06-07] MEDS: NYSTATIN 30 GM POWDER BTL TOP ×2 (13:10→21:37)
[2017-06-08] MEDS: ALBUTEROL 0.083% (NEB) 2.5 MG/3 ML AMP HHN ×6 (00:24→20:20)
[2017-06-08] MEDS: IPRATROPIUM (NEB) 0.5 MG/2.5 ML AMP HHN ×6 (00:24→20:20)
[2017-06-08] MEDS: INSULIN ASPART [NOVOLOG] 3 ML PEN SC ×7 (01:14→21:29)
[2017-06-08] MEDS: PIPER-TAZO 3.375 GM IV (PMX) 100 ML IVPB ×3 (05:33→22:24)
[2017-06-08 05:38] LABS: ADD MAN DIFF? NO
[2017-06-08 05:49] LABS: BASOPHILS % 0.3 % (0.0-2.0); EOSINOPHILS % 0.6 % (0.0-7.0); HEMATOCRIT 29.5 % (42.0-52.0); LYMPHOCYTES # 1.2 10^3/ul (0.8-2.9); LYMPHOCYTES % 18.3 % (15.0-51.0); MEAN CORPUSCULAR HEMOGLOBIN 27.6 pg (29.0-33.0); MEAN CORPUSCULAR HGB CONC 30.5 g/dl (32.0-37.0); MEAN CORPUSCULAR VOLUME 90.5 fl (82.0-101.0); MEAN PLATELET VOLUME 11.3 fl (7.4-10.4); MONOCYTE # 0.4 10^3/ul (0.3-0.9); MONOCYTES % 5.7 % (0.0-11.0); NEUTROPHIL # 4.9 10^3/ul (1.6-7.5); NEUTROPHILS % 74.8 % (39.0-77.0); PLATELET COUNT 170 10^3/UL (140-415); RED BLOOD COUNT 3.26 10^6/ul (4.70-6.10); RED CELL DISTRIBUTION WIDTH 15.6 % (11.5-14.5)
[2017-06-08 05:49] LABS: WHITE BLOOD COUNT 6.6 10^3/ul (4.8-10.8)
[2017-06-08 06:17] LABS: ANION GAP 13 (8-16); BLOOD UREA NITROGEN 23 mg/dl (7-20); CARBON DIOXIDE 30 mmol/L (21-31); CHLORIDE 101 mmol/L (97-110); GLUCOSE 294 mg/dl (70-220); POTASSIUM 3.8 mmol/L (3.5-5.1); SODIUM 140 mmol/L (135-144)
[2017-06-08] MEDS: COLLAGENASE 30 GM TUBE TOP (08:20)
[2017-06-08] MEDS: ZINC OXIDE 20% 30 GM OINT TOP (08:20)
[2017-06-08] MEDS: NYSTATIN 30 GM POWDER BTL TOP ×2 (08:21→21:23)
[2017-06-08] MEDS: FAMOTIDINE 20 MG TAB PO (08:21)
[2017-06-08] MEDS: BACITRACIN 0.5%/ZINC 28.35 GM OINT TOP ×2 (08:21→21:22)
[2017-06-08] MEDS: LEVETIRACETAM 500 MG (PMX) 100 ML IVPB (09:15)
[2017-06-08] MEDS: INSULIN DETEMIR [LEVEMIR] 3ML CART SC (09:25)
[2017-06-08] MEDS: ACETAMINOPHEN 650 MG SUPP PR (12:58)
[2017-06-08] MEDS: TPN 1,000 ML IV (14:19)
[2017-06-08] MEDS: FAMOTIDINE 20 MG INJ IV (21:19)
[2017-06-08] MEDS: FAT EMULSION 20% 250 ML IV (21:19)
[2017-06-09] MEDS: IPRATROPIUM (NEB) 0.5 MG/2.5 ML AMP HHN ×6 (00:44→21:11)
[2017-06-09] MEDS: ALBUTEROL 0.083% (NEB) 2.5 MG/3 ML AMP HHN ×6 (00:44→21:11)
[2017-06-09] MEDS: INSULIN ASPART [NOVOLOG] 3 ML PEN SC ×6 (01:45→20:53)
[2017-06-09] MEDS: PIPER-TAZO 3.375 GM IV (PMX) 100 ML IVPB (06:13)
[2017-06-09 07:20] LABS: ADD MAN DIFF? NO
[2017-06-09 07:25] LABS: WHITE BLOOD COUNT 12.7 10^3/ul (4.8-10.8)
[2017-06-09 07:25] LABS: BASOPHIL # 0.1 10^3/ul (0.0-0.1); BASOPHILS % 0.4 % (0.0-2.0); EOSINOPHILS % 0.3 % (0.0-7.0); HEMATOCRIT 31.2 % (42.0-52.0); HEMOGLOBIN 9.7 g/dl (14.0-18.0); LYMPHOCYTES # 0.7 10^3/ul (0.8-2.9); LYMPHOCYTES % 5.8 % (15.0-51.0); MEAN CORPUSCULAR HEMOGLOBIN 27.9 pg (29.0-33.0); MEAN CORPUSCULAR HGB CONC 31.1 g/dl (32.0-37.0); MEAN CORPUSCULAR VOLUME 89.7 fl (82.0-101.0); MONOCYTE # 0.5 10^3/ul (0.3-0.9); MONOCYTES % 4.1 % (0.0-11.0); NEUTROPHIL # 11.3 10^3/ul (1.6-7.5); PLATELET COUNT 208 10^3/UL (140-415); RED BLOOD COUNT 3.48 10^6/ul (4.70-6.10); RED CELL DISTRIBUTION WIDTH 15.9 % (11.5-14.5)
[2017-06-09 08:06] LABS: ANION GAP 13 (8-16); BLOOD UREA NITROGEN 35 mg/dl (7-20); CALCIUM 9.4 mg/dl (8.4-10.2); CARBON DIOXIDE 29 mmol/L (21-31); CHLORIDE 98 mmol/L (97-110); CREATININE 0.74 mg/dl (0.61-1.24); GLUCOSE 222 mg/dl (70-220); POTASSIUM 4.3 mmol/L (3.5-5.1); SODIUM 136 mmol/L (135-144)
[2017-06-09 08:10] LABS: MAGNESIUM 1.9 mg/dl (1.7-2.5)
[2017-06-09] MEDS: LEVETIRACETAM 500 MG (PMX) 100 ML IVPB (09:08)
[2017-06-09] MEDS: ACETAMINOPHEN 650 MG SUPP PR (09:08)
[2017-06-09] MEDS: ZINC OXIDE 20% 30 GM OINT TOP (09:08)
[2017-06-09] MEDS: TPN 1,000 ML IV ×3 (09:08→23:48)
[2017-06-09] MEDS: COLLAGENASE 30 GM TUBE TOP (09:09)
[2017-06-09] MEDS: NYSTATIN 30 GM POWDER BTL TOP ×2 (09:09→20:47)
[2017-06-09] MEDS: BACITRACIN 0.5%/ZINC 28.35 GM OINT TOP ×2 (09:09→20:47)
[2017-06-09] MEDS: INSULIN DETEMIR [LEVEMIR] 3ML CART SC (09:21)
[2017-06-09] MEDS: FAMOTIDINE 20 MG INJ IV (11:59)
[2017-06-09] MEDS: CEFEPIME 2GM/50 ML (PMX) 50 ML IVPB (20:43)
[2017-06-10] MEDS: IPRATROPIUM (NEB) 0.5 MG/2.5 ML AMP HHN ×6 (00:49→21:50)
[2017-06-10] MEDS: ALBUTEROL 0.083% (NEB) 2.5 MG/3 ML AMP HHN ×7 (00:49→21:50)
[2017-06-10] MEDS: INSULIN ASPART [NOVOLOG] 3 ML PEN SC ×3 (01:27→09:02)
[2017-06-10] MEDS: ACETAMINOPHEN 650 MG SUPP PR (02:48)
[2017-06-10] MEDS: VANCOMYCIN 1 GM (PMX) 250 ML IVPB (03:56)
[2017-06-10] MEDS: KETOROLAC 30 MG INJ IV (03:57)
[2017-06-10 06:09] LABS: ADD MAN DIFF? NO
[2017-06-10 06:31] LABS: ABNORMAL IP MESSAGE 1; BASOPHILS % 0.2 % (0.0-2.0); LYMPHOCYTES # 0.3 10^3/ul (0.8-2.9); LYMPHOCYTES % 2.3 % (15.0-51.0); MEAN CORPUSCULAR HEMOGLOBIN 27.7 pg (29.0-33.0); MEAN CORPUSCULAR VOLUME 89.2 fl (82.0-101.0); MEAN PLATELET VOLUME 12.2 fl (7.4-10.4); MONOCYTE # 0.1 10^3/ul (0.3-0.9); MONOCYTES % 0.5 % (0.0-11.0); NEUTROPHIL # 10.7 10^3/ul (1.6-7.5); NEUTROPHILS % 96.4 % (39.0-77.0); PLATELET COUNT 142 10^3/UL (140-415); POSITIVE DIFF @See below; RED BLOOD COUNT 3.25 10^6/ul (4.70-6.10); RED CELL DISTRIBUTION WIDTH 15.7 % (11.5-14.5)
[2017-06-10 06:31] LABS: WHITE BLOOD COUNT 11.1 10^3/ul (4.8-10.8)
[2017-06-10 07:08] LABS: ANION GAP 16 (8-16); BLOOD UREA NITROGEN 42 mg/dl (7-20); CALCIUM 8.8 mg/dl (8.4-10.2); CARBON DIOXIDE 21 mmol/L (21-31); CHLORIDE 101 mmol/L (97-110); CREATININE 0.98 mg/dl (0.61-1.24); GLUCOSE 244 mg/dl (70-220); POTASSIUM 3.3 mmol/L (3.5-5.1); SODIUM 135 mmol/L (135-144)
[2017-06-10 07:11] LABS: PREALBUMIN 12.3 mg/dl (17.6-36.0)
[2017-06-10 07:12] LABS: MAGNESIUM 1.8 mg/dl (1.7-2.5)
[2017-06-10] MEDS: COLLAGENASE 30 GM TUBE TOP (09:00)
[2017-06-10] MEDS: FAMOTIDINE 20 MG INJ IV (09:00)
[2017-06-10] MEDS: NYSTATIN 30 GM POWDER BTL TOP ×2 (09:00→20:48)
[2017-06-10] MEDS: SOD CHLORIDE 0.9% 1,690 ML IV (09:00)
[2017-06-10] MEDS: BACITRACIN 0.5%/ZINC 28.35 GM OINT TOP ×2 (09:00→20:47)
[2017-06-10] MEDS: ZINC OXIDE 20% 30 GM OINT TOP (09:00)
[2017-06-10] MEDS: INSULIN DETEMIR [LEVEMIR] 3ML CART SC (09:04)
[2017-06-10] MEDS: CEFEPIME 2GM/50 ML (PMX) 50 ML IVPB ×2 (10:05→22:41)
[2017-06-10] MEDS: LEVETIRACETAM 500 MG (PMX) 100 ML IVPB (10:06)
[2017-06-10] MEDS: NORepinephrine 8MG/250 ML (PMX 250 ML IV (11:13)
[2017-06-10] MEDS: VANCOMYCIN IV PER PHARMACY XX (11:55)
[2017-06-10] MEDS ORDERED: VASOPRESSIN 100 UNIT in SOD CHLORIDE 0.9% 95 ML IV (13:00)
[2017-06-10 13:04] LABS: LACTIC ACID 4.3 mmol/L (0.5-2.0)
[2017-06-10] MEDS: VASOPRESSIN 60 UNIT in DEXTROSE 5% 60 ML IV ×2 (13:30→17:32)
[2017-06-10] MEDS: ACCU-CHEK XX ×10 (14:00→23:00)
[2017-06-10] MEDS ORDERED: VANCOMYCIN IV PER PHARMACY XX (14:00)
[2017-06-10] MEDS ORDERED: DEXTROSE 50% 50 ML SYRINGE IV ×2 (14:00)
[2017-06-10] MEDS: SOD CHLORIDE 0.9% IVPB (14:17)
[2017-06-10] MEDS: AMIKACIN IVPB (14:17)
[2017-06-10] MEDS: CASPOFUNGIN 70 MG in SOD CHLORIDE 0.9% 250 ML IVPB (15:27)
[2017-06-10] MEDS: BARIUM SULF 2% 450 ML BTL (BERRY SMOOTHIE) PO (15:32)
[2017-06-10] MEDS: metroNIDAZOLE 500 MG/NS (PMX) 100 ML IVPB ×2 (16:37→21:11)
[2017-06-10 16:38] LABS: ADD UMIC YES; UR ASCORBIC ACID NEGATIVE (NEGATIVE); UR BILIRUBIN (Dip) NEGATIVE (NEGATIVE); UR BLOOD (Dip) 2+ mg/dL (NEGATIVE); UR BUDDING YEAST MODERATE /HPF (NONE SEEN); UR CLARITY CLOUDY (CLEAR); UR COLOR AMBER (YELLOW); UR GLUCOSE (Dip) 1+ mg/dL (NEGATIVE); UR KETONES (Dip) NEGATIVE (NEGATIVE); UR LEUKOCYTE ESTERASE (Dip) NEGATIVE Leu/ul (NEGATIVE); UR MUCUS FEW /HPF (NONE SEEN); UR NITRITE (Dip) NEGATIVE (NEGATIVE); UR RBC 3 /HPF (0-5); UR SPECIFIC GRAVITY (Dip) 1.015 (1.003-1.030); UR TOTAL PROTEIN (Dip) 2+ mg/dl (NEGATIVE); UR UROBILINOGEN (Dip) NEGATIVE (NEGATIVE); UR WBC 7 /HPF (0-5)
[2017-06-10] MEDS: INSULIN HUMAN REGULAR 100 UNIT in SOD CHLORIDE 0.9% 99 ML IV (17:33)
[2017-06-10] MEDS: TPN 1,000 ML IV (17:48)
[2017-06-10] MEDS ORDERED: PHENYLephrine 20MG IN 250 ML 250 ML IV (18:00)
[2017-06-10] MEDS: VANCOMYCIN 750 MG in SOD CHLORIDE 0.9% 150 ML IVPB (18:06)
[2017-06-10 18:09] LABS: AADO2 Arterial 75.7 mmHg (7.0-24.0); Allen Test ACCEPTAB; Arterial Base Excess -6.8 mmol/L (-3.0-3); Arterial COHb 0.4 % (0.0-3.0); Arterial Fraction of Oxyhgb 96.3 % (93.0-99.0); Arterial MetHb 0.3 % (0.0-1.5); Arterial Total Hemglobin 9.1 g/dl (12.0-18.0); Arterial pCO2 27.8 mmhg (35-45); MODE TRACH COLLAR; Site Left Radial
[2017-06-10 19:09] LABS: LACTIC ACID 4.2 mmol/L (0.5-2.0)
[2017-06-10] MEDS: FAT EMULSION 20% 250 ML IV (20:47)
[2017-06-10 23:21] LABS: LACTIC ACID 3.6 mmol/L (0.5-2.0)
[2017-06-11] MEDS: POTASSIUM CHLORIDE 50 ML IVPB ×2 (00:21→02:07)
[2017-06-11] MEDS: ACCU-CHEK XX ×24 (01:00→23:00)
[2017-06-11] MEDS: ALBUTEROL 0.083% (NEB) 2.5 MG/3 ML AMP HHN ×6 (01:17→20:04)
[2017-06-11] MEDS: IPRATROPIUM (NEB) 0.5 MG/2.5 ML AMP HHN ×6 (01:17→20:04)
[2017-06-11 03:37] LABS: LACTIC ACID 3.3 mmol/L (0.5-2.0)
[2017-06-11] MEDS: VANCOMYCIN 750 MG in SOD CHLORIDE 0.9% 150 ML IVPB ×2 (03:51→16:47)
[2017-06-11] MEDS ORDERED: VANCOMYCIN 1 GM in NS 250 ML IVPB (04:00)
[2017-06-11] MEDS: INSULIN HUMAN REGULAR 100 UNIT in SOD CHLORIDE 0.9% 99 ML IV ×2 (04:14→22:00)
[2017-06-11] MEDS: TPN 1,000 ML IV ×2 (05:12→12:00)
[2017-06-11 05:14] LABS: ABNORMAL IP MESSAGE 1; HEMATOCRIT 23.6 % (42.0-52.0); HEMOGLOBIN 7.5 g/dl (14.0-18.0); MEAN CORPUSCULAR HEMOGLOBIN 28.4 pg (29.0-33.0); MEAN CORPUSCULAR HGB CONC 31.8 g/dl (32.0-37.0); MEAN CORPUSCULAR VOLUME 89.4 fl (82.0-101.0); MEAN PLATELET VOLUME 13.3 fl (7.4-10.4); PLATELET COUNT 120 10^3/UL (140-415); RED BLOOD COUNT 2.64 10^6/ul (4.70-6.10); RED CELL DISTRIBUTION WIDTH 15.9 % (11.5-14.5)
[2017-06-11 05:24] LABS: PHOSPHORUS 1.6 mg/dl (2.5-4.9)
[2017-06-11 05:24] LABS: MAGNESIUM 1.7 mg/dl (1.7-2.5)
[2017-06-11 05:26] LABS: ALANINE AMINOTRANSFERASE 105 IU/L (13-69); ALBUMIN 2.6 g/dl (3.3-4.9); ALBUMIN/GLOBULIN RATIO 0.59; ALKALINE PHOSPHATASE 114 IU/L (42-121); ANION GAP 11 (8-16); ASPARTATE AMINO TRANSFERASE 125 IU/L (15-46); BILIRUBIN,INDIRECT 0.8 mg/dl (0-1.1); BILIRUBIN,TOTAL 2.4 mg/dl (0.2-1.3); BLOOD UREA NITROGEN 43 mg/dl (7-20); CALCIUM 8.2 mg/dl (8.4-10.2); CARBON DIOXIDE 20 mmol/L (21-31); CHLORIDE 103 mmol/L (97-110); CREATININE 0.86 mg/dl (0.61-1.24); GLUCOSE 320 mg/dl (70-220); POTASSIUM 4.3 mmol/L (3.5-5.1); SODIUM 130 mmol/L (135-144)
[2017-06-11 05:28] LABS: ADD MAN DIFF? YES
[2017-06-11] MEDS: metroNIDAZOLE 500 MG/NS (PMX) 100 ML IVPB (05:53)
[2017-06-11 05:54] LABS: LACTIC ACID 2.3 mmol/L (0.5-2.0)
[2017-06-11 07:45] LABS: ANISOCYTOSIS 1+ (0-0); BAND NEUTROPHILS #M 11.8 10^3/ul (0.0-0.6); BAND NEUTROPHILS % (M) 36 % (0-4); BURR CELLS 1+ (0-0); EOSINOPHILS % (M) 1 % (0-7); GIANT THROMBO% (M) 4 % (0-0); LYMPHOCYTES #M 0.9 10^3/ul (0.8-2.9); LYMPHOCYTES % (M) 3 % (15-51); MONOCYTE #M 0.3 10^3/ul (0.3-0.9); MONOCYTES % (M) 1 % (0-11); PLATELET ESTIMATE DECREASED; PLATELET MORPHOLOGY COMMENT @See below; POIKILOCYTOSIS 1+ (0-0); POLYCHROMASIA 1+ (0-0); SEG NEUT #M 23.3 10^3/ul (1.7-7.5); SEGMENTED NEUTROPHILS (M) % 59 % (39-77); SMUDGE%M 8 % (0-0)
[2017-06-11] MEDS: COLLAGENASE 30 GM TUBE TOP (08:23)
[2017-06-11] MEDS: NYSTATIN 30 GM POWDER BTL TOP ×2 (08:23→20:15)
[2017-06-11] MEDS: ZINC OXIDE 20% 30 GM OINT TOP (08:23)
[2017-06-11] MEDS: BACITRACIN 0.5%/ZINC 28.35 GM OINT TOP ×2 (08:25→20:15)
[2017-06-11] MEDS: CEFEPIME 2GM/50 ML (PMX) 50 ML IVPB (08:32)
[2017-06-11] MEDS: FAMOTIDINE 20 MG INJ IV (08:32)
[2017-06-11] MEDS: LEVETIRACETAM 500 MG (PMX) 100 ML IVPB ×2 (10:00→12:10)
[2017-06-11 10:58] LABS: LACTIC ACID 3.4 mmol/L (0.5-2.0)
[2017-06-11] MEDS: CASPOFUNGIN 50 MG in SOD CHLORIDE 0.9% 250 ML IVPB ×3 (11:30→14:38)
[2017-06-11] MEDS ORDERED: AMIKACIN IV PER PHARMACY XX (12:00)
[2017-06-11] MEDS: VASOPRESSIN 60 UNIT in DEXTROSE 5% 60 ML IV (13:30)
[2017-06-11] MEDS: AMIKACIN IVPB (14:37)
[2017-06-11] MEDS: SOD CHLORIDE 0.9% IVPB (14:37)
[2017-06-11] MEDS: MEROPENEM 1 GM/50ML(PMX) 50 ML IVPB ×2 (14:38→21:12)
[2017-06-11] MEDS: ACETAMINOPHEN 650 MG SUPP PR (14:59)
[2017-06-11] MEDS: PANTOPRAZOLE 40 MG INJ IV (21:11)
[2017-06-11 21:13] LABS: HEMATOCRIT 23.3 % (42.0-52.0); HEMOGLOBIN 7.4 g/dl (14.0-18.0)
[2017-06-11 21:37] LABS: LACTIC ACID 2.5 mmol/L (0.5-2.0)
[2017-06-12] MEDS: ACCU-CHEK XX ×24 (01:00→23:00)
[2017-06-12] MEDS: VASOPRESSIN 60 UNIT in DEXTROSE 5% 60 ML IV ×2 (01:30→13:01)
[2017-06-12] MEDS: TPN 1,000 ML IV ×2 (03:55→20:07)
[2017-06-12] MEDS: ALBUTEROL 0.083% (NEB) 2.5 MG/3 ML AMP HHN ×6 (04:02→20:02)
[2017-06-12] MEDS: IPRATROPIUM (NEB) 0.5 MG/2.5 ML AMP HHN ×6 (04:02→20:02)
[2017-06-12 04:34] LABS: ADD MAN DIFF? NO
[2017-06-12 04:35] LABS: ABNORMAL IP MESSAGE 1; BASOPHILS % 0.1 % (0.0-2.0); EOSINOPHILS % 0.1 % (0.0-7.0); HEMOGLOBIN 7.4 g/dl (14.0-18.0); LYMPHOCYTES # 0.7 10^3/ul (0.8-2.9); LYMPHOCYTES % 4.7 % (15.0-51.0); MEAN CORPUSCULAR HEMOGLOBIN 28.4 pg (29.0-33.0); MEAN CORPUSCULAR HGB CONC 32.2 g/dl (32.0-37.0); MEAN CORPUSCULAR VOLUME 88.1 fl (82.0-101.0); MEAN PLATELET VOLUME 13.6 fl (7.4-10.4); MONOCYTE # 0.6 10^3/ul (0.3-0.9); NEUTROPHIL # 13.1 10^3/ul (1.6-7.5); NEUTROPHILS % 90.2 % (39.0-77.0); PLATELET COUNT 89 10^3/UL (140-415); POSITIVE DIFF @See below; RED BLOOD COUNT 2.61 10^6/ul (4.70-6.10)
[2017-06-12 04:35] LABS: WHITE BLOOD COUNT 14.5 10^3/ul (4.8-10.8)
[2017-06-12 04:55] LABS: ALANINE AMINOTRANSFERASE 71 IU/L (13-69); ALBUMIN 2.9 g/dl (3.3-4.9); ALBUMIN/GLOBULIN RATIO 0.64; ALKALINE PHOSPHATASE 114 IU/L (42-121); ANION GAP 10 (8-16); ASPARTATE AMINO TRANSFERASE 61 IU/L (15-46); BILIRUBIN,INDIRECT 0.8 mg/dl (0-1.1); BILIRUBIN,TOTAL 1.8 mg/dl (0.2-1.3); BLOOD UREA NITROGEN 35 mg/dl (7-20); CARBON DIOXIDE 26 mmol/L (21-31); CHLORIDE 105 mmol/L (97-110); CREATININE 0.76 mg/dl (0.61-1.24); GLUCOSE 150 mg/dl (70-220); POTASSIUM 3.2 mmol/L (3.5-5.1); SODIUM 138 mmol/L (135-144); TOTAL PROTEIN 7.4 g/dl (6.1-8.1)
[2017-06-12 04:57] LABS: AADO2 Arterial 83.5 mmHg (7.0-24.0); Arterial Base Excess 0.7 mmol/L (-3.0-3); Arterial Blood Gas Oxygen Sat 96.1 mmHG (95.0-98.0); Arterial COHb 0.3 % (0.0-3.0); Arterial Fraction of Oxyhgb 95.7 % (93.0-99.0); Arterial HCO3 23.4 mmol/L (22.0-26.0); Arterial MetHb 0.1 % (0.0-1.5); Arterial Total Hemglobin 9.2 g/dl (12.0-18.0); Arterial pCO2 30.3 mmhg (35-45); MAGNESIUM 1.9 mg/dl (1.7-2.5); MODE TRACH COLLAR; Site Right Brachial
[2017-06-12 04:57] LABS: PHOSPHORUS 2.2 mg/dl (2.5-4.9)
[2017-06-12] MEDS: PANTOPRAZOLE 40 MG INJ IV (05:20)
[2017-06-12] MEDS: MEROPENEM 1 GM/50ML(PMX) 50 ML IVPB ×3 (05:20→21:11)
[2017-06-12 05:24] LABS: LACTIC ACID 2.2 mmol/L (0.5-2.0)
[2017-06-12] MEDS ORDERED: VANCOMYCIN 1.25 GM in SOD CHLORIDE 0.9% 250 ML IVPB (09:00)
[2017-06-12] MEDS: ZINC OXIDE 20% 30 GM OINT TOP (09:36)
[2017-06-12] MEDS: FAMOTIDINE 20 MG INJ IV (09:36)
[2017-06-12] MEDS: COLLAGENASE 30 GM TUBE TOP (09:36)
[2017-06-12] MEDS: BACITRACIN 0.5%/ZINC 28.35 GM OINT TOP ×2 (09:36→21:12)
[2017-06-12] MEDS: NYSTATIN 30 GM POWDER BTL TOP ×2 (09:36→21:12)
[2017-06-12] MEDS: INSULIN HUMAN REGULAR 100 UNIT in SOD CHLORIDE 0.9% 99 ML IV (09:49)
[2017-06-12] MEDS: LEVETIRACETAM 500 MG (PMX) 100 ML IVPB (11:15)
[2017-06-12] MEDS: VANCOMYCIN 1.25 GM in SOD CHLORIDE 0.9% 250 ML IVPB (12:28)
[2017-06-12] MEDS ORDERED: POTASSIUM CHLORIDE 50 ML IVPB (12:30)
[2017-06-12] MEDS: CASPOFUNGIN 50 MG in SOD CHLORIDE 0.9% 250 ML IVPB (15:27)
[2017-06-12] MEDS: MUPIROCIN 2% 22 GM OINT TOP (21:15)
[2017-06-12] MEDS: POTASSIUM CHLORIDE 50 ML IVPB ×2 (22:11→23:46)
[2017-06-13] MEDS: IPRATROPIUM (NEB) 0.5 MG/2.5 ML AMP HHN ×6 (00:05→21:16)
[2017-06-13] MEDS: ALBUTEROL 0.083% (NEB) 2.5 MG/3 ML AMP HHN ×6 (00:05→21:16)
[2017-06-13] MEDS: POTASSIUM CHLORIDE 50 ML IVPB (01:10)
[2017-06-13] MEDS: ACCU-CHEK XX ×3 (01:12→02:11)
[2017-06-13] MEDS: VASOPRESSIN 60 UNIT in DEXTROSE 5% 60 ML IV ×2 (01:30→13:30)
[2017-06-13] MEDS: AMIKACIN IVPB (04:26)
[2017-06-13] MEDS: SOD CHLORIDE 0.9% IVPB (04:26)
[2017-06-13] MEDS ORDERED: GLUCOSE GEL 15 GRAM TUBE BUCCAL (04:30)
[2017-06-13] MEDS ORDERED: GLUCOSE GEL 15 GRAM TUBE PO ×2 (04:30)
[2017-06-13] MEDS ORDERED: GLUCAGON 1 MG INJ IM (04:30)
[2017-06-13 04:51] LABS: ADD MAN DIFF? NO
[2017-06-13] MEDS: INSULIN ASPART [NOVOLOG] 3 ML PEN SC ×5 (05:00→20:42)
[2017-06-13] MEDS: INSULIN GLARGINE [LANtus] 3 ML PEN SC ×3 (05:05→10:16)
[2017-06-13] MEDS: MEROPENEM 1 GM/50ML(PMX) 50 ML IVPB ×3 (05:06→21:54)
[2017-06-13] MEDS: PANTOPRAZOLE 40 MG INJ IV (05:07)
[2017-06-13 05:09] LABS: LACTIC ACID 1.3 mmol/L (0.5-2.0)
[2017-06-13 05:10] LABS: WHITE BLOOD COUNT 6.4 10^3/ul (4.8-10.8)
[2017-06-13 05:10] LABS: ABNORMAL IP MESSAGE 1; BASOPHILS % 0.2 % (0.0-2.0); EOSINOPHILS % 0.2 % (0.0-7.0); LYMPHOCYTES # 0.7 10^3/ul (0.8-2.9); LYMPHOCYTES % 10.4 % (15.0-51.0); MEAN CORPUSCULAR HEMOGLOBIN 28.2 pg (29.0-33.0); MEAN CORPUSCULAR HGB CONC 31.9 g/dl (32.0-37.0); MEAN CORPUSCULAR VOLUME 88.2 fl (82.0-101.0); MEAN PLATELET VOLUME 13.7 fl (7.4-10.4); MONOCYTE # 0.4 10^3/ul (0.3-0.9); MONOCYTES % 6.5 % (0.0-11.0); NEUTROPHIL # 5.3 10^3/ul (1.6-7.5); NEUTROPHILS % 81.8 % (39.0-77.0); PLATELET COUNT 79 10^3/UL (140-415); POSITIVE DIFF @See below; RED BLOOD COUNT 2.38 10^6/ul (4.70-6.10); RED CELL DISTRIBUTION WIDTH 16.6 % (11.5-14.5)
[2017-06-13 05:21] LABS: ALANINE AMINOTRANSFERASE 56 IU/L (13-69); ALBUMIN 2.5 g/dl (3.3-4.9); ALBUMIN/GLOBULIN RATIO 0.62; ALKALINE PHOSPHATASE 110 IU/L (42-121); ANION GAP 11 (8-16); ASPARTATE AMINO TRANSFERASE 51 IU/L (15-46); BILIRUBIN,INDIRECT 0.7 mg/dl (0-1.1); BILIRUBIN,TOTAL 1.5 mg/dl (0.2-1.3); BLOOD UREA NITROGEN 34 mg/dl (7-20); CALCIUM 7.4 mg/dl (8.4-10.2); CARBON DIOXIDE 26 mmol/L (21-31); CHLORIDE 107 mmol/L (97-110); GLUCOSE 120 mg/dl (70-220); SODIUM 140 mmol/L (135-144); TOTAL PROTEIN 6.5 g/dl (6.1-8.1)
[2017-06-13 05:32] LABS: HEMOGLOBIN 6.7 g/dl (14.0-18.0)
[2017-06-13] MEDS: MUPIROCIN 2% 22 GM OINT TOP ×2 (09:32→20:45)
[2017-06-13] MEDS: ZINC OXIDE 20% 30 GM OINT TOP (09:32)
[2017-06-13] MEDS: BACITRACIN 0.5%/ZINC 28.35 GM OINT TOP ×2 (09:32→20:45)
[2017-06-13] MEDS: NYSTATIN 30 GM POWDER BTL TOP ×2 (09:33→20:46)
[2017-06-13] MEDS: COLLAGENASE 30 GM TUBE TOP ×2 (09:34→12:47)
[2017-06-13] MEDS: VANCOMYCIN 1.25 GM in SOD CHLORIDE 0.9% 250 ML IVPB (10:34)
[2017-06-13 11:03] LABS: IMMEDIATE SPIN CROSSMATCH 1 2
[2017-06-13 11:31] LABS: INR 1.31; PROTIME 16.4 Sec (12.2-14.2); PT RATIO 1.3
[2017-06-13] MEDS: ACETAMINOPHEN 650 MG SUPP PR (12:46)
[2017-06-13] MEDS ORDERED: NORepinephrine 8MG/250 ML (PMX 250 ML (15:19)
[2017-06-13] MEDS: LEVETIRACETAM 500 MG (PMX) 100 ML IVPB (15:32)
[2017-06-13] MEDS: CASPOFUNGIN 50 MG in SOD CHLORIDE 0.9% 250 ML IVPB (15:33)
[2017-06-13] MEDS: TPN 1,000 ML IV (18:12)
[2017-06-13] MEDS: FAT EMULSION 20% 250 ML IV (20:39)
[2017-06-14] MEDS: INSULIN ASPART [NOVOLOG] 3 ML PEN SC ×6 (01:24→21:39)
[2017-06-14] MEDS: VASOPRESSIN 60 UNIT in DEXTROSE 5% 60 ML IV ×2 (01:30→13:30)
[2017-06-14] MEDS: ALBUTEROL 0.083% (NEB) 2.5 MG/3 ML AMP HHN ×6 (02:04→21:00)
[2017-06-14] MEDS: IPRATROPIUM (NEB) 0.5 MG/2.5 ML AMP HHN ×6 (02:04→21:01)
[2017-06-14] MEDS: ACCU-CHEK XX (02:24)
[2017-06-14 05:13] LABS: ADD MAN DIFF? NO
[2017-06-14 05:24] LABS: WHITE BLOOD COUNT 9.3 10^3/ul (4.8-10.8)
[2017-06-14 05:24] LABS: ABNORMAL IP MESSAGE 1; BASOPHILS % 0.3 % (0.0-2.0); EOSINOPHILS % 0.2 % (0.0-7.0); HEMATOCRIT 28.4 % (42.0-52.0); HEMOGLOBIN 9.3 g/dl (14.0-18.0); LYMPHOCYTES # 0.8 10^3/ul (0.8-2.9); LYMPHOCYTES % 8.1 % (15.0-51.0); MEAN CORPUSCULAR HEMOGLOBIN 28.4 pg (29.0-33.0); MEAN CORPUSCULAR HGB CONC 32.7 g/dl (32.0-37.0); MEAN CORPUSCULAR VOLUME 86.9 fl (82.0-101.0); MEAN PLATELET VOLUME 13.5 fl (7.4-10.4); MONOCYTE # 0.6 10^3/ul (0.3-0.9); MONOCYTES % 6.6 % (0.0-11.0); NEUTROPHIL # 7.9 10^3/ul (1.6-7.5); NEUTROPHILS % 84.3 % (39.0-77.0); PLATELET COUNT 117 10^3/UL (140-415); POSITIVE DIFF @See below; RED BLOOD COUNT 3.27 10^6/ul (4.70-6.10); RED CELL DISTRIBUTION WIDTH 15.9 % (11.5-14.5)
[2017-06-14] MEDS: MEROPENEM 1 GM/50ML(PMX) 50 ML IVPB ×3 (05:35→21:40)
[2017-06-14 05:47] LABS: ALANINE AMINOTRANSFERASE 53 IU/L (13-69); ALBUMIN 2.7 g/dl (3.3-4.9); ALKALINE PHOSPHATASE 157 IU/L (42-121); ASPARTATE AMINO TRANSFERASE 59 IU/L (15-46); BILIRUBIN,INDIRECT 0.8 mg/dl (0-1.1); BILIRUBIN,TOTAL 2.1 mg/dl (0.2-1.3); TOTAL PROTEIN 7.1 g/dl (6.1-8.1)
[2017-06-14 06:22] LABS: ANION GAP 10 (8-16); BLOOD UREA NITROGEN 33 mg/dl (7-20); CALCIUM 7.6 mg/dl (8.4-10.2); CARBON DIOXIDE 23 mmol/L (21-31); CHLORIDE 109 mmol/L (97-110); CREATININE 0.73 mg/dl (0.61-1.24); GLUCOSE 251 mg/dl (70-220); POTASSIUM 3.9 mmol/L (3.5-5.1); SODIUM 138 mmol/L (135-144)
[2017-06-14] MEDS ORDERED: NORepinephrine 8MG/250 ML (PMX 250 ML (07:21)
[2017-06-14 07:29] LABS: WHITE BLOOD COUNT 32.9 10^3/ul (4.8-10.8)
[2017-06-14] MEDS: POTASSIUM CHLORIDE 50 ML IVPB (07:41)
[2017-06-14] MEDS: NORepinephrine 8MG/250 ML (PMX 250 ML IV (07:44)
[2017-06-14] MEDS: INSULIN GLARGINE [LANtus] 3 ML PEN SC (08:47)
[2017-06-14] MEDS: MUPIROCIN 2% 22 GM OINT TOP ×2 (08:50→21:40)
[2017-06-14] MEDS: BACITRACIN 0.5%/ZINC 28.35 GM OINT TOP ×2 (08:51→21:39)
[2017-06-14] MEDS: FAMOTIDINE 20 MG INJ IV (08:51)
[2017-06-14] MEDS: ZINC OXIDE 20% 30 GM OINT TOP (08:52)
[2017-06-14] MEDS: NYSTATIN 30 GM POWDER BTL TOP ×2 (08:53→21:40)
[2017-06-14] MEDS: TPN 1,000 ML IV (10:02)
[2017-06-14] MEDS: ACETAMINOPHEN 650 MG SUPP PR (13:27)
[2017-06-14] MEDS: SOD CHLORIDE 0.9% IVPB (15:45)
[2017-06-14] MEDS: CASPOFUNGIN 50 MG in SOD CHLORIDE 0.9% 250 ML IVPB (15:45)
[2017-06-14] MEDS: AMIKACIN IVPB (15:45)
[2017-06-14 20:38] LABS: ADD UMIC YES; UR ASCORBIC ACID NEGATIVE (NEGATIVE); UR BILIRUBIN (Dip) NEGATIVE (NEGATIVE); UR BLOOD (Dip) 1+ mg/dL (NEGATIVE); UR CLARITY CLEAR (CLEAR); UR COLOR AMBER (YELLOW); UR GLUCOSE (Dip) 1+ mg/dL (NEGATIVE); UR KETONES (Dip) NEGATIVE (NEGATIVE); UR LEUKOCYTE ESTERASE (Dip) NEGATIVE Leu/ul (NEGATIVE); UR MUCUS FEW /HPF (NONE SEEN); UR NITRITE (Dip) NEGATIVE (NEGATIVE); UR RBC 4 /HPF (0-5); UR TOTAL PROTEIN (Dip) 2+ mg/dl (NEGATIVE); UR UROBILINOGEN (Dip) 1+ mg/dL (NEGATIVE); UR WBC 5 /HPF (0-5)
[2017-06-15] MEDS: ALBUTEROL 0.083% (NEB) 2.5 MG/3 ML AMP HHN ×6 (01:26→20:41)
[2017-06-15] MEDS: IPRATROPIUM (NEB) 0.5 MG/2.5 ML AMP HHN ×6 (01:26→20:41)
[2017-06-15] MEDS: VASOPRESSIN 60 UNIT in DEXTROSE 5% 60 ML IV ×2 (01:30→12:19)
[2017-06-15] MEDS: TPN 1,000 ML IV ×2 (01:31→19:04)
[2017-06-15] MEDS: INSULIN ASPART [NOVOLOG] 3 ML PEN SC ×6 (01:33→20:51)
[2017-06-15] MEDS: ACCU-CHEK XX (01:34)
[2017-06-15] MEDS: MEROPENEM 1 GM/50ML(PMX) 50 ML IVPB ×3 (05:05→20:53)
[2017-06-15 05:42] LABS: ADD MAN DIFF? NO
[2017-06-15 05:56] LABS: WHITE BLOOD COUNT 7.9 10^3/ul (4.8-10.8)
[2017-06-15 05:56] LABS: ABNORMAL IP MESSAGE 1; BASOPHILS % 0.3 % (0.0-2.0); EOSINOPHILS % 0.4 % (0.0-7.0); HEMATOCRIT 26.8 % (42.0-52.0); HEMOGLOBIN 8.8 g/dl (14.0-18.0); LYMPHOCYTES % 12.4 % (15.0-51.0); MEAN CORPUSCULAR HEMOGLOBIN 28.9 pg (29.0-33.0); MEAN CORPUSCULAR HGB CONC 32.8 g/dl (32.0-37.0); MEAN CORPUSCULAR VOLUME 88.2 fl (82.0-101.0); MONOCYTE # 0.5 10^3/ul (0.3-0.9); MONOCYTES % 6.5 % (0.0-11.0); NEUTROPHIL # 6.3 10^3/ul (1.6-7.5); NEUTROPHILS % 79.5 % (39.0-77.0); PLATELET COUNT 109 10^3/UL (140-415); POSITIVE DIFF @See below; RED BLOOD COUNT 3.04 10^6/ul (4.70-6.10); RED CELL DISTRIBUTION WIDTH 15.9 % (11.5-14.5)
[2017-06-15 06:21] LABS: ANION GAP 10 (8-16); BLOOD UREA NITROGEN 32 mg/dl (7-20); CALCIUM 7.5 mg/dl (8.4-10.2); CARBON DIOXIDE 26 mmol/L (21-31); CHLORIDE 108 mmol/L (97-110); CREATININE 0.68 mg/dl (0.61-1.24); GLUCOSE 190 mg/dl (70-220); POTASSIUM 4.2 mmol/L (3.5-5.1); SODIUM 140 mmol/L (135-144)
[2017-06-15 06:41] LABS: MAGNESIUM 2.1 mg/dl (1.7-2.5)
[2017-06-15 06:41] LABS: PHOSPHORUS 3.4 mg/dl (2.5-4.9)
[2017-06-15] MEDS ORDERED: PROPOFOL 200 MG INJ (07:00)
[2017-06-15] MEDS: FAMOTIDINE 20 MG INJ IV (08:38)
[2017-06-15] MEDS: BACITRACIN 0.5%/ZINC 28.35 GM OINT TOP ×2 (08:38→20:52)
[2017-06-15] MEDS: LEVETIRACETAM 500 MG (PMX) 100 ML IVPB (08:38)
[2017-06-15] MEDS: MUPIROCIN 2% 22 GM OINT TOP ×2 (08:38→20:52)
[2017-06-15] MEDS: NYSTATIN 30 GM POWDER BTL TOP ×2 (08:39→20:53)
[2017-06-15] MEDS: COLLAGENASE 30 GM TUBE TOP (08:39)
[2017-06-15] MEDS: ZINC OXIDE 20% 30 GM OINT TOP (08:39)
[2017-06-15] MEDS: INSULIN GLARGINE [LANtus] 3 ML PEN SC (08:41)
[2017-06-15] MEDS ORDERED: IOHEXOL 300MG/ML 30 ML BTL (15:23)
[2017-06-15] MEDS ORDERED: GLUCAGON 1 MG INJ (16:29)
[2017-06-15] MEDS ORDERED: ATROPINE 1 MG/10 ML SYRINGE (16:53)
[2017-06-15] MEDS ORDERED: NEOSTIGMINE 3 MG/3 ML SYRINGE (16:53)
[2017-06-15] MEDS: CASPOFUNGIN 50 MG in SOD CHLORIDE 0.9% 250 ML IVPB (17:29)
[2017-06-15] MEDS: SOD CHLORIDE 0.9% 500 ML IV (19:41)
[2017-06-15] MEDS: FAT EMULSION 20% 250 ML IV (20:52)
[2017-06-16] MEDS: INSULIN ASPART [NOVOLOG] 3 ML PEN SC ×6 (01:28→21:00)
[2017-06-16] MEDS: ACCU-CHEK XX (01:29)
[2017-06-16] MEDS: VASOPRESSIN 60 UNIT in DEXTROSE 5% 60 ML IV (01:30)
[2017-06-16] MEDS: ALBUTEROL 0.083% (NEB) 2.5 MG/3 ML AMP HHN ×6 (01:46→21:57)
[2017-06-16] MEDS: IPRATROPIUM (NEB) 0.5 MG/2.5 ML AMP HHN ×6 (01:46→21:57)
[2017-06-16] MEDS: MEROPENEM 1 GM/50ML(PMX) 50 ML IVPB ×3 (05:11→23:24)
[2017-06-16] MEDS: AMIKACIN IVPB (06:01)
[2017-06-16] MEDS: SOD CHLORIDE 0.9% IVPB (06:01)
[2017-06-16 06:27] LABS: ADD MAN DIFF? NO
[2017-06-16 06:54] LABS: WHITE BLOOD COUNT 7.2 10^3/ul (4.8-10.8)
[2017-06-16 06:54] LABS: ABNORMAL IP MESSAGE 1; BASOPHILS % 0.3 % (0.0-2.0); EOSINOPHILS # 0.1 10^3/ul (0.0-0.5); HEMATOCRIT 28.1 % (42.0-52.0); HEMOGLOBIN 9.1 g/dl (14.0-18.0); MEAN CORPUSCULAR HEMOGLOBIN 29.1 pg (29.0-33.0); MEAN CORPUSCULAR HGB CONC 32.4 g/dl (32.0-37.0); MEAN CORPUSCULAR VOLUME 89.8 fl (82.0-101.0); MONOCYTE # 0.3 10^3/ul (0.3-0.9); MONOCYTES % 4.6 % (0.0-11.0); NEUTROPHIL # 5.7 10^3/ul (1.6-7.5); NEUTROPHILS % 79.1 % (39.0-77.0); PLATELET COUNT 136 10^3/UL (140-415); POSITIVE DIFF @See below; RED BLOOD COUNT 3.13 10^6/ul (4.70-6.10); RED CELL DISTRIBUTION WIDTH 15.9 % (11.5-14.5)
[2017-06-16 07:04] LABS: ANION GAP 7 (8-16); BLOOD UREA NITROGEN 33 mg/dl (7-20); CALCIUM 7.6 mg/dl (8.4-10.2); CARBON DIOXIDE 28 mmol/L (21-31); CHLORIDE 109 mmol/L (97-110); CREATININE 0.62 mg/dl (0.61-1.24); GLUCOSE 184 mg/dl (70-220); POTASSIUM 4.2 mmol/L (3.5-5.1); SODIUM 140 mmol/L (135-144)
[2017-06-16 07:18] LABS: MAGNESIUM 2.1 mg/dl (1.7-2.5)
[2017-06-16 07:18] LABS: PHOSPHORUS 3.3 mg/dl (2.5-4.9)
[2017-06-16] MEDS: TPN 1,000 ML IV ×2 (08:58→23:48)
[2017-06-16] MEDS: FAMOTIDINE 20 MG INJ IV (08:59)
[2017-06-16] MEDS: MUPIROCIN 2% 22 GM OINT TOP ×2 (08:59→21:26)
[2017-06-16] MEDS: BACITRACIN 0.5%/ZINC 28.35 GM OINT TOP ×2 (08:59→21:26)
[2017-06-16] MEDS: LEVETIRACETAM 500 MG (PMX) 100 ML IVPB (08:59)
[2017-06-16] MEDS: COLLAGENASE 30 GM TUBE TOP (09:00)
[2017-06-16] MEDS: NYSTATIN 30 GM POWDER BTL TOP ×2 (09:00→21:27)
[2017-06-16] MEDS: ZINC OXIDE 20% 30 GM OINT TOP (09:00)
[2017-06-16] MEDS: INSULIN GLARGINE [LANtus] 3 ML PEN SC (09:33)
[2017-06-16] MEDS: DEXTROSE 50% 50 ML SYRINGE IV (13:37)
[2017-06-16] MEDS: CASPOFUNGIN 50 MG in SOD CHLORIDE 0.9% 250 ML IVPB (17:20)
[2017-06-17] MEDS: INSULIN ASPART [NOVOLOG] 3 ML PEN SC ×6 (00:47→21:00)
[2017-06-17] MEDS: TPN 1,000 ML IV ×2 (02:31→20:59)
[2017-06-17] MEDS: IPRATROPIUM (NEB) 0.5 MG/2.5 ML AMP HHN ×6 (02:40→20:01)
[2017-06-17] MEDS: ALBUTEROL 0.083% (NEB) 2.5 MG/3 ML AMP HHN ×6 (02:40→20:01)
[2017-06-17] MEDS: MEROPENEM 1 GM/50ML(PMX) 50 ML IVPB ×3 (06:07→21:51)
[2017-06-17 06:17] LABS: PREALBUMIN 7.1 mg/dl (17.6-36.0)
[2017-06-17 07:02] LABS: ADD MAN DIFF? NO
[2017-06-17 07:12] LABS: ABNORMAL IP MESSAGE 1; BASOPHILS % 0.3 % (0.0-2.0); EOSINOPHILS % 0.3 % (0.0-7.0); HEMOGLOBIN 8.6 g/dl (14.0-18.0); LYMPHOCYTES % 12.2 % (15.0-51.0); MEAN CORPUSCULAR HEMOGLOBIN 28.7 pg (29.0-33.0); MEAN CORPUSCULAR HGB CONC 31.9 g/dl (32.0-37.0); MEAN PLATELET VOLUME 13.6 fl (7.4-10.4); MONOCYTE # 0.3 10^3/ul (0.3-0.9); MONOCYTES % 3.9 % (0.0-11.0); NEUTROPHIL # 6.6 10^3/ul (1.6-7.5); NEUTROPHILS % 82.8 % (39.0-77.0); PLATELET COUNT 188 10^3/UL (140-415); POSITIVE DIFF @See below; RED CELL DISTRIBUTION WIDTH 16.2 % (11.5-14.5)
[2017-06-17 07:26] LABS: ANION GAP 12 (8-16); BLOOD UREA NITROGEN 28 mg/dl (7-20); CALCIUM 7.6 mg/dl (8.4-10.2); CARBON DIOXIDE 26 mmol/L (21-31); CHLORIDE 108 mmol/L (97-110); CREATININE 0.64 mg/dl (0.61-1.24); GLUCOSE 129 mg/dl (70-220); POTASSIUM 4.5 mmol/L (3.5-5.1); SODIUM 141 mmol/L (135-144)
[2017-06-17 07:27] LABS: TRIGLYCERIDES 296 mg/dl (0-149)
[2017-06-17] MEDS: NYSTATIN 30 GM POWDER BTL TOP ×2 (08:44→21:42)
[2017-06-17] MEDS: BACITRACIN 0.5%/ZINC 28.35 GM OINT TOP ×2 (08:45→21:42)
[2017-06-17] MEDS: MUPIROCIN 2% 22 GM OINT TOP ×2 (08:45→21:42)
[2017-06-17] MEDS: COLLAGENASE 30 GM TUBE TOP (08:45)
[2017-06-17] MEDS: ZINC OXIDE 20% 30 GM OINT TOP (08:45)
[2017-06-17] MEDS: INSULIN GLARGINE [LANtus] 3 ML PEN SC (08:50)
[2017-06-17] MEDS: FAMOTIDINE 20 MG INJ IV (09:14)
[2017-06-17] MEDS: LEVETIRACETAM 500 MG (PMX) 100 ML IVPB (09:14)
[2017-06-17] MEDS: ACETAMINOPHEN 650 MG SUPP PR (14:41)
[2017-06-17] MEDS: AMIKACIN IVPB (15:45)
[2017-06-17] MEDS: SOD CHLORIDE 0.9% IVPB (15:45)
[2017-06-17] MEDS: FAT EMULSION 20% 250 ML IV (21:41)
[2017-06-18] MEDS: ALBUTEROL 0.083% (NEB) 2.5 MG/3 ML AMP HHN ×6 (01:00→20:24)
[2017-06-18] MEDS: INSULIN ASPART [NOVOLOG] 3 ML PEN SC ×6 (01:00→21:41)
[2017-06-18] MEDS: IPRATROPIUM (NEB) 0.5 MG/2.5 ML AMP HHN ×6 (01:00→20:24)
[2017-06-18] MEDS: MEROPENEM 1 GM/50ML(PMX) 50 ML IVPB ×3 (05:59→21:41)
[2017-06-18 06:15] LABS: ADD MAN DIFF? NO
[2017-06-18 06:24] LABS: ABNORMAL IP MESSAGE 1; BASOPHILS % 0.4 % (0.0-2.0); EOSINOPHILS % 0.5 % (0.0-7.0); HEMATOCRIT 26.9 % (42.0-52.0); HEMOGLOBIN 8.5 g/dl (14.0-18.0); LYMPHOCYTES % 11.6 % (15.0-51.0); MEAN CORPUSCULAR HEMOGLOBIN 28.6 pg (29.0-33.0); MEAN CORPUSCULAR HGB CONC 31.6 g/dl (32.0-37.0); MEAN CORPUSCULAR VOLUME 90.6 fl (82.0-101.0); MEAN PLATELET VOLUME 13.1 fl (7.4-10.4); MONOCYTE # 0.4 10^3/ul (0.3-0.9); MONOCYTES % 4.7 % (0.0-11.0); NEUTROPHIL # 6.8 10^3/ul (1.6-7.5); NEUTROPHILS % 82.3 % (39.0-77.0); PLATELET COUNT 246 10^3/UL (140-415); POSITIVE DIFF @See below; RED BLOOD COUNT 2.97 10^6/ul (4.70-6.10); RED CELL DISTRIBUTION WIDTH 16.4 % (11.5-14.5)
[2017-06-18 06:24] LABS: WHITE BLOOD COUNT 8.2 10^3/ul (4.8-10.8)
[2017-06-18] MEDS: TPN 1,000 ML IV ×2 (06:36→12:55)
[2017-06-18 06:54] LABS: PHOSPHORUS 3.4 mg/dl (2.5-4.9)
[2017-06-18 07:01] LABS: ALANINE AMINOTRANSFERASE 62 IU/L (13-69); ALBUMIN 2.5 g/dl (3.3-4.9); ALKALINE PHOSPHATASE 189 IU/L (42-121); ASPARTATE AMINO TRANSFERASE 92 IU/L (15-46); BILIRUBIN,INDIRECT 0.8 mg/dl (0-1.1); BLOOD UREA NITROGEN 26 mg/dl (7-20); CALCIUM 7.4 mg/dl (8.4-10.2); CARBON DIOXIDE 27 mmol/L (21-31); CHLORIDE 105 mmol/L (97-110); GLUCOSE 158 mg/dl (70-220); POTASSIUM 4.7 mmol/L (3.5-5.1); TOTAL PROTEIN 7.5 g/dl (6.1-8.1)
[2017-06-18] MEDS: MUPIROCIN 2% 22 GM OINT TOP ×2 (08:41→21:41)
[2017-06-18] MEDS: LEVETIRACETAM 500 MG (PMX) 100 ML IVPB (08:41)
[2017-06-18] MEDS: FAMOTIDINE 20 MG INJ IV (08:41)
[2017-06-18] MEDS: NYSTATIN 30 GM POWDER BTL TOP ×2 (08:42→21:42)
[2017-06-18] MEDS: ZINC OXIDE 20% 30 GM OINT TOP (08:42)
[2017-06-18] MEDS: BACITRACIN 0.5%/ZINC 28.35 GM OINT TOP ×2 (08:42→21:42)
[2017-06-18] MEDS: COLLAGENASE 30 GM TUBE TOP (08:44)
[2017-06-18] MEDS: INSULIN GLARGINE [LANtus] 3 ML PEN SC (08:57)
[2017-06-19] MEDS: IPRATROPIUM (NEB) 0.5 MG/2.5 ML AMP HHN ×6 (01:21→20:24)
[2017-06-19] MEDS: ALBUTEROL 0.083% (NEB) 2.5 MG/3 ML AMP HHN ×6 (01:22→20:24)
[2017-06-19] MEDS: INSULIN ASPART [NOVOLOG] 3 ML PEN SC ×6 (01:24→21:00)
[2017-06-19] MEDS: TPN 1,000 ML IV (05:05)
[2017-06-19] MEDS: MEROPENEM 1 GM/50ML(PMX) 50 ML IVPB ×3 (05:59→21:20)
[2017-06-19 06:29] LABS: SODIUM 138 mmol/L (135-144)
[2017-06-19 06:30] LABS: ANION GAP 11 (8-16)
[2017-06-19 06:45] LABS: ANION GAP 12 (8-16); BLOOD UREA NITROGEN 27 mg/dl (7-20); CALCIUM 8.3 mg/dl (8.4-10.2); CARBON DIOXIDE 26 mmol/L (21-31); CHLORIDE 103 mmol/L (97-110); CREATININE 0.75 mg/dl (0.61-1.24); GLUCOSE 143 mg/dl (70-220); MAGNESIUM 2.1 mg/dl (1.7-2.5); PHOSPHORUS 3.9 mg/dl (2.5-4.9); SODIUM 136 mmol/L (135-144)
[2017-06-19] MEDS: LEVETIRACETAM 500 MG (PMX) 100 ML IVPB (08:45)
[2017-06-19] MEDS: FAMOTIDINE 20 MG INJ IV (08:46)
[2017-06-19] MEDS: MUPIROCIN 2% 22 GM OINT TOP ×2 (08:51→21:16)
[2017-06-19] MEDS: BACITRACIN 0.5%/ZINC 28.35 GM OINT TOP ×3 (08:51→21:17)
[2017-06-19] MEDS: COLLAGENASE 30 GM TUBE TOP (08:52)
[2017-06-19] MEDS: NYSTATIN 30 GM POWDER BTL TOP ×2 (08:53→21:16)
[2017-06-19] MEDS: ZINC OXIDE 20% 30 GM OINT TOP ×2 (08:54→09:00)
[2017-06-19] MEDS: INSULIN GLARGINE [LANtus] 3 ML PEN SC (09:23)
[2017-06-19] MEDS ORDERED: VANCOMYCIN IV PER PHARMACY XX (14:00)
[2017-06-19] MEDS: ACETAMINOPHEN 650 MG SUPP PR (14:06)
[2017-06-19] MEDS: CASPOFUNGIN 50 MG in SOD CHLORIDE 0.9% 250 ML IVPB (16:42)
[2017-06-19] MEDS: VANCOMYCIN 1.25 GM in SOD CHLORIDE 0.9% 250 ML IVPB (18:04)
[2017-06-20] MEDS: ALBUTEROL 0.083% (NEB) 2.5 MG/3 ML AMP HHN ×6 (00:08→20:22)
[2017-06-20] MEDS: IPRATROPIUM (NEB) 0.5 MG/2.5 ML AMP HHN ×6 (00:08→20:22)
[2017-06-20] MEDS: INSULIN ASPART [NOVOLOG] 3 ML PEN SC ×6 (00:59→21:00)
[2017-06-20] MEDS: TPN 1,000 ML IV ×3 (01:44→19:34)
[2017-06-20] MEDS: MEROPENEM 1 GM/50ML(PMX) 50 ML IVPB ×3 (06:11→22:25)
[2017-06-20 06:35] LABS: ANION GAP 11 (8-16); BLOOD UREA NITROGEN 29 mg/dl (7-20); CALCIUM 8.2 mg/dl (8.4-10.2); CARBON DIOXIDE 26 mmol/L (21-31); CHLORIDE 105 mmol/L (97-110); CREATININE 0.71 mg/dl (0.61-1.24); GLUCOSE 170 mg/dl (70-220); PHOSPHORUS 3.7 mg/dl (2.5-4.9); POTASSIUM 4.7 mmol/L (3.5-5.1); SODIUM 137 mmol/L (135-144)
[2017-06-20] MEDS: FAMOTIDINE 20 MG INJ IV (08:32)
[2017-06-20] MEDS: LEVETIRACETAM 500 MG (PMX) 100 ML IVPB (08:32)
[2017-06-20] MEDS: INSULIN GLARGINE [LANtus] 3 ML PEN SC (08:49)
[2017-06-20] MEDS: COLLAGENASE 30 GM TUBE TOP (09:00)
[2017-06-20] MEDS: ZINC OXIDE 20% 30 GM OINT TOP (09:00)
[2017-06-20 11:01] LABS: ADD UMIC YES; UR ASCORBIC ACID NEGATIVE (NEGATIVE); UR BILIRUBIN (Dip) NEGATIVE (NEGATIVE); UR BLOOD (Dip) NEGATIVE (NEGATIVE); UR CLARITY CLEAR (CLEAR); UR COLOR AMBER (YELLOW); UR GLUCOSE (Dip) NEGATIVE (NEGATIVE); UR KETONES (Dip) NEGATIVE (NEGATIVE); UR LEUKOCYTE ESTERASE (Dip) NEGATIVE Leu/ul (NEGATIVE); UR NITRITE (Dip) NEGATIVE (NEGATIVE); UR RBC 1 /HPF (0-5); UR SPECIFIC GRAVITY (Dip) 1.016 (1.003-1.030); UR TOTAL PROTEIN (Dip) 2+ mg/dl (NEGATIVE); UR UROBILINOGEN (Dip) 1+ mg/dL (NEGATIVE); UR WBC 3 /HPF (0-5)
[2017-06-20 11:17] LABS: ADD UMIC YES; UR ASCORBIC ACID NEGATIVE (NEGATIVE); UR BILIRUBIN (Dip) NEGATIVE (NEGATIVE); UR BLOOD (Dip) 1+ mg/dL (NEGATIVE); UR CLARITY CLEAR (CLEAR); UR COLOR AMBER (YELLOW); UR GLUCOSE (Dip) 1+ mg/dL (NEGATIVE); UR KETONES (Dip) NEGATIVE (NEGATIVE); UR LEUKOCYTE ESTERASE (Dip) NEGATIVE Leu/ul (NEGATIVE); UR NITRITE (Dip) NEGATIVE (NEGATIVE); UR RBC 1 /HPF (0-5); UR SPECIFIC GRAVITY (Dip) 1.017 (1.003-1.030); UR TOTAL PROTEIN (Dip) 2+ mg/dl (NEGATIVE); UR UROBILINOGEN (Dip) 1+ mg/dL (NEGATIVE); UR WBC 5 /HPF (0-5)
[2017-06-20] MEDS: BACITRACIN 0.5%/ZINC 28.35 GM OINT TOP ×2 (16:17→22:26)
[2017-06-20] MEDS: NYSTATIN 30 GM POWDER BTL TOP ×2 (16:18→22:25)
[2017-06-20] MEDS: MUPIROCIN 2% 22 GM OINT TOP ×2 (16:18→22:26)
[2017-06-20] MEDS: CASPOFUNGIN 50 MG in SOD CHLORIDE 0.9% 250 ML IVPB (16:54)
[2017-06-20] MEDS: VANCOMYCIN 1.25 GM in SOD CHLORIDE 0.9% 250 ML IVPB (18:47)
[2017-06-20] MEDS: FAT EMULSION 20% 250 ML IV (23:06)
[2017-06-21] MEDS: IPRATROPIUM (NEB) 0.5 MG/2.5 ML AMP HHN ×6 (00:39→20:09)
[2017-06-21] MEDS: ALBUTEROL 0.083% (NEB) 2.5 MG/3 ML AMP HHN ×6 (00:40→20:09)
[2017-06-21] MEDS ORDERED: VITAMIN A & D 5 GM OINT PACKET TOP (02:53)
[2017-06-21] MEDS: INSULIN ASPART [NOVOLOG] 3 ML PEN SC ×6 (03:05→20:44)
[2017-06-21] MEDS: MEROPENEM 1 GM/50ML(PMX) 50 ML IVPB ×3 (06:03→21:42)
[2017-06-21 07:06] LABS: ALANINE AMINOTRANSFERASE 67 IU/L (13-69); ALBUMIN/GLOBULIN RATIO 0.55; ALKALINE PHOSPHATASE 247 IU/L (42-121); ANION GAP 11 (8-16); ASPARTATE AMINO TRANSFERASE 97 IU/L (15-46); BILIRUBIN,INDIRECT 1.1 mg/dl (0-1.1); BILIRUBIN,TOTAL 2.8 mg/dl (0.2-1.3); BLOOD UREA NITROGEN 32 mg/dl (7-20); CALCIUM 8.4 mg/dl (8.4-10.2); CARBON DIOXIDE 28 mmol/L (21-31); CHLORIDE 104 mmol/L (97-110); CREATININE 0.66 mg/dl (0.61-1.24); GLUCOSE 171 mg/dl (70-220); MAGNESIUM 2.1 mg/dl (1.7-2.5); PHOSPHORUS 3.7 mg/dl (2.5-4.9); POTASSIUM 3.9 mmol/L (3.5-5.1); SODIUM 139 mmol/L (135-144); TOTAL PROTEIN 8.4 g/dl (6.1-8.1)
[2017-06-21] MEDS: ZINC OXIDE 20% 30 GM OINT TOP (09:00)
[2017-06-21] MEDS: LEVETIRACETAM 500 MG (PMX) 100 ML IVPB ×2 (09:00→10:45)
[2017-06-21] MEDS: INSULIN GLARGINE [LANtus] 3 ML PEN SC (09:10)
[2017-06-21] MEDS: FAMOTIDINE 20 MG INJ IV (09:51)
[2017-06-21] MEDS: COLLAGENASE 30 GM TUBE TOP (09:52)
[2017-06-21] MEDS: NYSTATIN 30 GM POWDER BTL TOP ×2 (09:52→20:40)
[2017-06-21] MEDS: MUPIROCIN 2% 22 GM OINT TOP ×2 (09:52→20:40)
[2017-06-21] MEDS: BACITRACIN 0.5%/ZINC 28.35 GM OINT TOP ×2 (09:54→20:40)
[2017-06-21] MEDS: TPN 1,000 ML IV (11:43)
[2017-06-21] MEDS: LIDOCAINE 1% (MPF) 5 ML VIAL SC (15:00)
[2017-06-21] MEDS: SOD CHLORIDE 0.9% 100 ML (16:35)
[2017-06-21] MEDS: VANCOMYCIN 1.25 GM in SOD CHLORIDE 0.9% 250 ML IVPB (18:07)
[2017-06-22] MEDS: INSULIN ASPART [NOVOLOG] 3 ML PEN SC ×6 (01:24→20:52)
[2017-06-22] MEDS: IPRATROPIUM (NEB) 0.5 MG/2.5 ML AMP HHN ×6 (01:47→21:10)
[2017-06-22] MEDS: ALBUTEROL 0.083% (NEB) 2.5 MG/3 ML AMP HHN ×6 (01:47→21:10)
[2017-06-22] MEDS: MEROPENEM 1 GM/50ML(PMX) 50 ML IVPB ×3 (05:24→21:34)
[2017-06-22] MEDS: TPN 1,000 ML IV ×3 (06:19→23:32)
[2017-06-22 06:56] LABS: ANION GAP 12 (8-16); BLOOD UREA NITROGEN 32 mg/dl (7-20); CALCIUM 8.1 mg/dl (8.4-10.2); CARBON DIOXIDE 31 mmol/L (21-31); CHLORIDE 103 mmol/L (97-110); CREATININE 0.62 mg/dl (0.61-1.24); GLUCOSE 191 mg/dl (70-220); MAGNESIUM 2.1 mg/dl (1.7-2.5); PHOSPHORUS 3.4 mg/dl (2.5-4.9); POTASSIUM 3.3 mmol/L (3.5-5.1); SODIUM 143 mmol/L (135-144)
[2017-06-22] MEDS: BACITRACIN 0.5%/ZINC 28.35 GM OINT TOP ×2 (08:21→20:53)
[2017-06-22] MEDS: COLLAGENASE 30 GM TUBE TOP (08:22)
[2017-06-22] MEDS: MUPIROCIN 2% 22 GM OINT TOP (08:22)
[2017-06-22] MEDS: NYSTATIN 30 GM POWDER BTL TOP ×2 (08:22→20:53)
[2017-06-22] MEDS: ZINC OXIDE 20% 30 GM OINT TOP (08:23)
[2017-06-22] MEDS: INSULIN GLARGINE [LANtus] 3 ML PEN SC (08:38)
[2017-06-22] MEDS: FAMOTIDINE 20 MG INJ IV (08:52)
[2017-06-22] MEDS: LEVETIRACETAM 500 MG (PMX) 100 ML IVPB (08:52)
[2017-06-22] MEDS: POTASSIUM CHLORIDE 250 ML IVPB (12:11)
[2017-06-22] MEDS: DEXTROSE 50% 50 ML SYRINGE IV (12:17)
[2017-06-22] MEDS: FAT EMULSION 20% 250 ML IV (20:52)
[2017-06-23] MEDS: IPRATROPIUM (NEB) 0.5 MG/2.5 ML AMP HHN ×6 (00:11→21:01)
[2017-06-23] MEDS: ALBUTEROL 0.083% (NEB) 2.5 MG/3 ML AMP HHN ×6 (00:11→21:01)
[2017-06-23] MEDS: INSULIN ASPART [NOVOLOG] 3 ML PEN SC ×6 (01:00→21:00)
[2017-06-23] MEDS: MEROPENEM 1 GM/50ML(PMX) 50 ML IVPB ×3 (05:21→21:24)
[2017-06-23 06:27] LABS: ANION GAP 10 (8-16); BLOOD UREA NITROGEN 31 mg/dl (7-20); CALCIUM 8.4 mg/dl (8.4-10.2); CARBON DIOXIDE 30 mmol/L (21-31); CHLORIDE 109 mmol/L (97-110); CREATININE 0.63 mg/dl (0.61-1.24); GLUCOSE 169 mg/dl (70-220); PHOSPHORUS 2.9 mg/dl (2.5-4.9); POTASSIUM 3.7 mmol/L (3.5-5.1); SODIUM 145 mmol/L (135-144); TRIGLYCERIDES 263 mg/dl (0-149)
[2017-06-23] MEDS: FAMOTIDINE 20 MG INJ IV (08:01)
[2017-06-23] MEDS: LEVETIRACETAM 500 MG (PMX) 100 ML IVPB (08:01)
[2017-06-23] MEDS: INSULIN GLARGINE [LANtus] 3 ML PEN SC (08:27)
[2017-06-23] MEDS: BACITRACIN 0.5%/ZINC 28.35 GM OINT TOP ×2 (09:00→21:25)
[2017-06-23] MEDS: NYSTATIN 30 GM POWDER BTL TOP ×2 (09:00→21:24)
[2017-06-23] MEDS: ZINC OXIDE 20% 30 GM OINT TOP (09:00)
[2017-06-23] MEDS: COLLAGENASE 30 GM TUBE TOP (09:00)
[2017-06-23] MEDS: TPN 1,000 ML IV ×2 (09:48→15:00)
[2017-06-24] MEDS: ALBUTEROL 0.083% (NEB) 2.5 MG/3 ML AMP HHN ×6 (01:00→21:30)
[2017-06-24] MEDS: IPRATROPIUM (NEB) 0.5 MG/2.5 ML AMP HHN ×6 (01:00→21:30)
[2017-06-24] MEDS: INSULIN ASPART [NOVOLOG] 3 ML PEN SC ×6 (01:34→20:47)
[2017-06-24] MEDS: MEROPENEM 1 GM/50ML(PMX) 50 ML IVPB ×3 (05:13→22:40)
[2017-06-24 06:37] LABS: ALANINE AMINOTRANSFERASE 87 IU/L (13-69); ALBUMIN 2.8 g/dl (3.3-4.9); ALKALINE PHOSPHATASE 271 IU/L (42-121); ANION GAP 12 (8-16); ASPARTATE AMINO TRANSFERASE 100 IU/L (15-46); BILIRUBIN,INDIRECT 1.2 mg/dl (0-1.1); BILIRUBIN,TOTAL 2.3 mg/dl (0.2-1.3); BLOOD UREA NITROGEN 34 mg/dl (7-20); CALCIUM 8.6 mg/dl (8.4-10.2); CARBON DIOXIDE 28 mmol/L (21-31); CHLORIDE 111 mmol/L (97-110); CREATININE 0.61 mg/dl (0.61-1.24); GLUCOSE 167 mg/dl (70-220); POTASSIUM 4.4 mmol/L (3.5-5.1); SODIUM 147 mmol/L (135-144); TOTAL PROTEIN 8.4 g/dl (6.1-8.1)
[2017-06-24 06:50] LABS: MAGNESIUM 2.2 mg/dl (1.7-2.5)
[2017-06-24] MEDS: LEVETIRACETAM 500 MG (PMX) 100 ML IVPB (08:08)
[2017-06-24] MEDS: FAMOTIDINE 20 MG INJ IV (08:08)
[2017-06-24] MEDS: TPN 1,000 ML IV ×2 (08:25→16:36)
[2017-06-24] MEDS: INSULIN GLARGINE [LANtus] 3 ML PEN SC (08:30)
[2017-06-24] MEDS: BACITRACIN 0.5%/ZINC 28.35 GM OINT TOP ×2 (09:00→20:48)
[2017-06-24] MEDS: COLLAGENASE 30 GM TUBE TOP (09:00)
[2017-06-24] MEDS: ZINC OXIDE 20% 30 GM OINT TOP (09:00)
[2017-06-24] MEDS: NYSTATIN 30 GM POWDER BTL TOP ×2 (09:00→20:48)
[2017-06-24 09:19] LABS: PROCALCITONIN 0.88 ng/mL (<0.10)
[2017-06-24] MEDS: ACETAMINOPHEN 325 MG SUPP PR (14:31)
[2017-06-24] MEDS: FAT EMULSION 20% 250 ML IV (20:47)
[2017-06-24] MEDS: HEPARIN 5,000 UNIT/0.5 ML VIAL SC (20:52)
[2017-06-25] MEDS: TPN 1,000 ML IV ×2 (00:23→18:17)
[2017-06-25] MEDS: INSULIN ASPART [NOVOLOG] 3 ML PEN SC ×6 (00:34→20:43)
[2017-06-25] MEDS: IPRATROPIUM (NEB) 0.5 MG/2.5 ML AMP HHN ×6 (01:14→20:58)
[2017-06-25] MEDS: ALBUTEROL 0.083% (NEB) 2.5 MG/3 ML AMP HHN ×6 (01:15→20:58)
[2017-06-25] MEDS: MEROPENEM 1 GM/50ML(PMX) 50 ML IVPB ×3 (05:25→21:33)
[2017-06-25 08:04] LABS: ANION GAP 14 (8-16); BLOOD UREA NITROGEN 36 mg/dl (7-20); CALCIUM 8.5 mg/dl (8.4-10.2); CARBON DIOXIDE 28 mmol/L (21-31); CHLORIDE 110 mmol/L (97-110); CREATININE 0.72 mg/dl (0.61-1.24); GLUCOSE 206 mg/dl (70-220); MAGNESIUM 2.2 mg/dl (1.7-2.5); PHOSPHORUS 3.3 mg/dl (2.5-4.9); SODIUM 148 mmol/L (135-144)
[2017-06-25 08:12] LABS: PREALBUMIN 11.7 mg/dl (17.6-36.0)
[2017-06-25] MEDS: LEVETIRACETAM 500 MG (PMX) 100 ML IVPB (08:46)
[2017-06-25] MEDS: FAMOTIDINE 20 MG INJ IV (08:46)
[2017-06-25] MEDS: NYSTATIN 30 GM POWDER BTL TOP ×2 (08:53→20:41)
[2017-06-25] MEDS: COLLAGENASE 30 GM TUBE TOP (08:54)
[2017-06-25] MEDS: INSULIN GLARGINE [LANtus] 3 ML PEN SC (08:56)
[2017-06-25] MEDS: BACITRACIN 0.5%/ZINC 28.35 GM OINT TOP ×2 (09:41→20:42)
[2017-06-25] MEDS: HEPARIN 5,000 UNIT/0.5 ML VIAL SC ×2 (09:42→20:44)
[2017-06-26] MEDS: INSULIN ASPART [NOVOLOG] 3 ML PEN SC ×6 (00:54→20:28)
[2017-06-26] MEDS: IPRATROPIUM (NEB) 0.5 MG/2.5 ML AMP HHN ×6 (01:28→20:32)
[2017-06-26] MEDS: ALBUTEROL 0.083% (NEB) 2.5 MG/3 ML AMP HHN ×6 (01:28→20:32)
[2017-06-26] MEDS: MEROPENEM 1 GM/50ML(PMX) 50 ML IVPB ×2 (05:39→13:41)
[2017-06-26 07:01] LABS: ANION GAP 10 (8-16); BLOOD UREA NITROGEN 39 mg/dl (7-20); CALCIUM 8.6 mg/dl (8.4-10.2); CARBON DIOXIDE 29 mmol/L (21-31); CHLORIDE 109 mmol/L (97-110); CREATININE 0.61 mg/dl (0.61-1.24); GLUCOSE 193 mg/dl (70-220); MAGNESIUM 2.2 mg/dl (1.7-2.5); PHOSPHORUS 3.2 mg/dl (2.5-4.9); POTASSIUM 3.9 mmol/L (3.5-5.1); SODIUM 144 mmol/L (135-144)
[2017-06-26] MEDS: FAMOTIDINE 20 MG INJ IV (08:40)
[2017-06-26] MEDS: LEVETIRACETAM 500 MG (PMX) 100 ML IVPB (08:41)
[2017-06-26] MEDS: BACITRACIN 0.5%/ZINC 28.35 GM OINT TOP ×2 (08:41→20:20)
[2017-06-26] MEDS: HEPARIN 5,000 UNIT/0.5 ML VIAL SC ×2 (08:42→20:27)
[2017-06-26] MEDS: INSULIN GLARGINE [LANtus] 3 ML PEN SC (08:42)
[2017-06-26] MEDS: NYSTATIN 30 GM POWDER BTL TOP ×2 (08:43→20:21)
[2017-06-26] MEDS: COLLAGENASE 30 GM TUBE TOP (08:44)
[2017-06-26] MEDS: TOBRAMYCIN/0.25NS 300 MG/5 ML INHAL NEB ×2 (12:00→20:34)
[2017-06-26] MEDS: TPN 1,000 ML IV (13:41)
[2017-06-27] MEDS: IPRATROPIUM (NEB) 0.5 MG/2.5 ML AMP HHN ×6 (00:30→22:34)
[2017-06-27] MEDS: ALBUTEROL 0.083% (NEB) 2.5 MG/3 ML AMP HHN ×6 (00:30→22:34)
[2017-06-27] MEDS: INSULIN ASPART [NOVOLOG] 3 ML PEN SC ×6 (01:19→21:23)
[2017-06-27] MEDS: TPN 1,000 ML IV ×3 (03:02→20:40)
[2017-06-27 06:46] LABS: ANION GAP 13 (8-16); BLOOD UREA NITROGEN 41 mg/dl (7-20); CALCIUM 8.6 mg/dl (8.4-10.2); CARBON DIOXIDE 29 mmol/L (21-31); CHLORIDE 105 mmol/L (97-110); CREATININE 0.69 mg/dl (0.61-1.24); GLUCOSE 237 mg/dl (70-220); MAGNESIUM 2.2 mg/dl (1.7-2.5); PHOSPHORUS 3.5 mg/dl (2.5-4.9); POTASSIUM 4.5 mmol/L (3.5-5.1); SODIUM 142 mmol/L (135-144)
[2017-06-27] MEDS: LEVETIRACETAM 500 MG (PMX) 100 ML IVPB (08:19)
[2017-06-27] MEDS: BACITRACIN 0.5%/ZINC 28.35 GM OINT TOP ×2 (08:20→21:25)
[2017-06-27] MEDS: NYSTATIN 30 GM POWDER BTL TOP ×2 (08:20→21:24)
[2017-06-27] MEDS: HEPARIN 5,000 UNIT/0.5 ML VIAL SC ×2 (08:29→21:23)
[2017-06-27] MEDS: INSULIN GLARGINE [LANtus] 3 ML PEN SC (08:38)
[2017-06-27] MEDS: TOBRAMYCIN/0.25NS 300 MG/5 ML INHAL NEB ×2 (09:36→22:34)
[2017-06-27] MEDS: COLLAGENASE 30 GM TUBE TOP (10:09)
[2017-06-27] MEDS: FAMOTIDINE 20 MG INJ IV (10:09)
[2017-06-27] MEDS: FAT EMULSION 20% 250 ML IV (20:39)
[2017-06-28] MEDS: INSULIN ASPART [NOVOLOG] 3 ML PEN SC ×6 (01:19→21:33)
[2017-06-28] MEDS: ALBUTEROL 0.083% (NEB) 2.5 MG/3 ML AMP HHN ×6 (01:28→20:45)
[2017-06-28] MEDS: IPRATROPIUM (NEB) 0.5 MG/2.5 ML AMP HHN ×6 (01:28→20:45)
[2017-06-28 06:59] LABS: ANION GAP 17 (8-16); BLOOD UREA NITROGEN 49 mg/dl (7-20); CALCIUM 8.3 mg/dl (8.4-10.2); CARBON DIOXIDE 26 mmol/L (21-31); CHLORIDE 101 mmol/L (97-110); CREATININE 0.77 mg/dl (0.61-1.24); GLUCOSE 267 mg/dl (70-220); MAGNESIUM 2.2 mg/dl (1.7-2.5); POTASSIUM 4.3 mmol/L (3.5-5.1); SODIUM 140 mmol/L (135-144)
[2017-06-28] MEDS: NYSTATIN 30 GM POWDER BTL TOP ×2 (08:55→21:45)
[2017-06-28] MEDS: FAMOTIDINE 20 MG INJ IV (08:55)
[2017-06-28] MEDS: BACITRACIN 0.5%/ZINC 28.35 GM OINT TOP ×2 (08:56→21:45)
[2017-06-28] MEDS: COLLAGENASE 30 GM TUBE TOP (08:56)
[2017-06-28] MEDS: TOBRAMYCIN/0.25NS 300 MG/5 ML INHAL NEB ×2 (09:00→20:48)
[2017-06-28] MEDS: HEPARIN 5,000 UNIT/0.5 ML VIAL SC ×2 (09:16→21:33)
[2017-06-28] MEDS: INSULIN GLARGINE [LANtus] 3 ML PEN SC (09:16)
[2017-06-28] MEDS: LEVETIRACETAM 500 MG (PMX) 100 ML IVPB (09:24)
[2017-06-28] MEDS: TPN 1,000 ML IV (12:19)
[2017-06-29] MEDS: IPRATROPIUM (NEB) 0.5 MG/2.5 ML AMP HHN ×6 (00:54→21:16)
[2017-06-29] MEDS: ALBUTEROL 0.083% (NEB) 2.5 MG/3 ML AMP HHN ×6 (00:55→21:16)
[2017-06-29] MEDS: INSULIN ASPART [NOVOLOG] 3 ML PEN SC ×6 (01:22→20:59)
[2017-06-29] MEDS: TPN 1,000 ML IV ×2 (04:14→23:08)
[2017-06-29] MEDS: INSULIN GLARGINE [LANtus] 3 ML PEN SC (08:20)
[2017-06-29] MEDS: BACITRACIN 0.5%/ZINC 28.35 GM OINT TOP ×2 (08:21→20:49)
[2017-06-29] MEDS: COLLAGENASE 30 GM TUBE TOP (08:22)
[2017-06-29] MEDS: NYSTATIN 30 GM POWDER BTL TOP ×2 (08:22→20:49)
[2017-06-29] MEDS: HEPARIN 5,000 UNIT/0.5 ML VIAL SC ×2 (09:00→20:58)
[2017-06-29] MEDS: FAMOTIDINE 20 MG INJ IV (09:00)
[2017-06-29] MEDS: LEVETIRACETAM 500 MG (PMX) 100 ML IVPB (09:00)
[2017-06-29] MEDS: TOBRAMYCIN/0.25NS 300 MG/5 ML INHAL NEB ×2 (09:08→21:16)
[2017-06-29] MEDS: PHENYLephrine (100 MCG/ML) 5ML SYG (11:51)
[2017-06-29] MEDS: PROPOFOL 20 ML (11:51)
[2017-06-29] MEDS: FAT EMULSION 20% 250 ML IV (21:01)
[2017-06-30] MEDS: IPRATROPIUM (NEB) 0.5 MG/2.5 ML AMP HHN ×6 (01:44→20:25)
[2017-06-30] MEDS: ALBUTEROL 0.083% (NEB) 2.5 MG/3 ML AMP HHN ×6 (01:44→20:25)
[2017-06-30] MEDS: INSULIN ASPART [NOVOLOG] 3 ML PEN SC ×6 (01:54→22:09)
[2017-06-30 05:50] LABS: ADD MAN DIFF? NO
[2017-06-30 06:00] LABS: BASOPHIL # 0.1 10^3/ul (0.0-0.1); BASOPHILS % 0.4 % (0.0-2.0); EOSINOPHILS % 0.2 % (0.0-7.0); HEMATOCRIT 24.7 % (42.0-52.0); HEMOGLOBIN 7.9 g/dl (14.0-18.0); LYMPHOCYTES % 15.1 % (15.0-51.0); MEAN CORPUSCULAR HEMOGLOBIN 28.8 pg (29.0-33.0); MEAN CORPUSCULAR VOLUME 90.1 fl (82.0-101.0); MEAN PLATELET VOLUME 12.3 fl (7.4-10.4); MONOCYTE # 0.9 10^3/ul (0.3-0.9); MONOCYTES % 6.9 % (0.0-11.0); NEUTROPHIL # 10.1 10^3/ul (1.6-7.5); NEUTROPHILS % 76.8 % (39.0-77.0); PLATELET COUNT 310 10^3/UL (140-415); RED BLOOD COUNT 2.74 10^6/ul (4.70-6.10); RED CELL DISTRIBUTION WIDTH 15.8 % (11.5-14.5)
[2017-06-30 06:00] LABS: WHITE BLOOD COUNT 13.1 10^3/ul (4.8-10.8)
[2017-06-30 06:31] LABS: ANION GAP 12 (8-16); BLOOD UREA NITROGEN 39 mg/dl (7-20); CALCIUM 8.4 mg/dl (8.4-10.2); CARBON DIOXIDE 28 mmol/L (21-31); CHLORIDE 100 mmol/L (97-110); CREATININE 0.72 mg/dl (0.61-1.24); GLUCOSE 238 mg/dl (70-220); POTASSIUM 4.3 mmol/L (3.5-5.1); SODIUM 136 mmol/L (135-144)
[2017-06-30] MEDS: TOBRAMYCIN/0.25NS 300 MG/5 ML INHAL NEB ×2 (07:53→20:26)
[2017-06-30] MEDS: LEVETIRACETAM 500 MG (PMX) 100 ML IVPB (08:50)
[2017-06-30] MEDS: FAMOTIDINE 20 MG INJ IV (08:50)
[2017-06-30] MEDS: BACITRACIN 0.5%/ZINC 28.35 GM OINT TOP ×2 (08:54→22:07)
[2017-06-30] MEDS: COLLAGENASE 30 GM TUBE TOP (08:54)
[2017-06-30] MEDS: NYSTATIN 30 GM POWDER BTL TOP ×2 (08:54→22:07)
[2017-06-30] MEDS: HEPARIN 5,000 UNIT/0.5 ML VIAL SC ×2 (09:04→22:08)
[2017-06-30] MEDS: INSULIN GLARGINE [LANtus] 3 ML PEN SC (09:04)
[2017-06-30] MEDS: TPN 1,000 ML IV ×2 (11:12→15:31)
[2017-07-01] MEDS: ALBUTEROL 0.083% (NEB) 2.5 MG/3 ML AMP HHN ×6 (00:54→20:38)
[2017-07-01] MEDS: IPRATROPIUM (NEB) 0.5 MG/2.5 ML AMP HHN ×6 (00:54→20:38)
[2017-07-01] MEDS: INSULIN ASPART [NOVOLOG] 3 ML PEN SC ×6 (01:33→21:56)
[2017-07-01 07:14] LABS: ADD MAN DIFF? NO
[2017-07-01 07:18] LABS: WHITE BLOOD COUNT 11.6 10^3/ul (4.8-10.8)
[2017-07-01 07:18] LABS: BASOPHILS % 0.3 % (0.0-2.0); EOSINOPHILS % 0.3 % (0.0-7.0); HEMATOCRIT 24.2 % (42.0-52.0); HEMOGLOBIN 7.5 g/dl (14.0-18.0); LYMPHOCYTES # 1.6 10^3/ul (0.8-2.9); LYMPHOCYTES % 13.8 % (15.0-51.0); MEAN CORPUSCULAR HEMOGLOBIN 28.1 pg (29.0-33.0); MEAN CORPUSCULAR VOLUME 90.6 fl (82.0-101.0); MEAN PLATELET VOLUME 12.7 fl (7.4-10.4); MONOCYTES % 8.5 % (0.0-11.0); NEUTROPHIL # 8.8 10^3/ul (1.6-7.5); NEUTROPHILS % 76.4 % (39.0-77.0); PLATELET COUNT 273 10^3/UL (140-415); RED BLOOD COUNT 2.67 10^6/ul (4.70-6.10); RED CELL DISTRIBUTION WIDTH 15.9 % (11.5-14.5)
[2017-07-01 07:51] LABS: ANION GAP 13 (8-16); BLOOD UREA NITROGEN 33 mg/dl (7-20); CALCIUM 8.2 mg/dl (8.4-10.2); CARBON DIOXIDE 28 mmol/L (21-31); CHLORIDE 97 mmol/L (97-110); CREATININE 0.61 mg/dl (0.61-1.24); GLUCOSE 231 mg/dl (70-220); MAGNESIUM 2.1 mg/dl (1.7-2.5); PHOSPHORUS 3.9 mg/dl (2.5-4.9); POTASSIUM 3.9 mmol/L (3.5-5.1); SODIUM 134 mmol/L (135-144)
[2017-07-01] MEDS: LEVETIRACETAM 500 MG (PMX) 100 ML IVPB (08:20)
[2017-07-01] MEDS: FAMOTIDINE 20 MG INJ IV (08:20)
[2017-07-01] MEDS: TPN 1,000 ML IV (08:20)
[2017-07-01] MEDS: NYSTATIN 30 GM POWDER BTL TOP ×2 (08:20→21:44)
[2017-07-01] MEDS: BACITRACIN 0.5%/ZINC 28.35 GM OINT TOP ×2 (08:21→21:44)
[2017-07-01] MEDS: COLLAGENASE 30 GM TUBE TOP (08:26)
[2017-07-01] MEDS: HEPARIN 5,000 UNIT/0.5 ML VIAL SC ×2 (08:39→21:30)
[2017-07-01] MEDS: INSULIN GLARGINE [LANtus] 3 ML PEN SC (08:39)
[2017-07-01] MEDS: TOBRAMYCIN/0.25NS 300 MG/5 ML INHAL NEB ×2 (09:00→20:38)
[2017-07-01 15:12] LABS: IMMEDIATE SPIN CROSSMATCH 1 2
[2017-07-01] MEDS: SOD CHLORIDE 0.9% 250 ML IV* (15:21)
[2017-07-01] MEDS: FAT EMULSION 20% 250 ML IV (21:45)
[2017-07-02] MEDS: TPN 1,000 ML IV ×2 (01:21→16:56)
[2017-07-02] MEDS: IPRATROPIUM (NEB) 0.5 MG/2.5 ML AMP HHN ×5 (01:40→18:15)
[2017-07-02] MEDS: INSULIN ASPART [NOVOLOG] 3 ML PEN SC ×6 (01:40→20:51)
[2017-07-02] MEDS: ALBUTEROL 0.083% (NEB) 2.5 MG/3 ML AMP HHN ×5 (01:40→18:15)
[2017-07-02 06:04] LABS: ADD MAN DIFF? NO
[2017-07-02 06:14] LABS: BASOPHIL # 0.1 10^3/ul (0.0-0.1); BASOPHILS % 0.4 % (0.0-2.0); EOSINOPHILS # 0.1 10^3/ul (0.0-0.5); EOSINOPHILS % 0.4 % (0.0-7.0); HEMATOCRIT 25.7 % (42.0-52.0); HEMOGLOBIN 8.4 g/dl (14.0-18.0); LYMPHOCYTES # 1.5 10^3/ul (0.8-2.9); LYMPHOCYTES % 11.7 % (15.0-51.0); MEAN CORPUSCULAR HEMOGLOBIN 29.1 pg (29.0-33.0); MEAN CORPUSCULAR HGB CONC 32.7 g/dl (32.0-37.0); MEAN CORPUSCULAR VOLUME 88.9 fl (82.0-101.0); MEAN PLATELET VOLUME 12.6 fl (7.4-10.4); MONOCYTE # 0.9 10^3/ul (0.3-0.9); MONOCYTES % 7.4 % (0.0-11.0); NEUTROPHILS % 79.4 % (39.0-77.0); PLATELET COUNT 260 10^3/UL (140-415); RED BLOOD COUNT 2.89 10^6/ul (4.70-6.10); RED CELL DISTRIBUTION WIDTH 15.2 % (11.5-14.5)
[2017-07-02 06:14] LABS: WHITE BLOOD COUNT 12.7 10^3/ul (4.8-10.8)
[2017-07-02 06:57] LABS: ANION GAP 14 (8-16); BLOOD UREA NITROGEN 27 mg/dl (7-20); CARBON DIOXIDE 26 mmol/L (21-31); CHLORIDE 97 mmol/L (97-110); CREATININE 0.65 mg/dl (0.61-1.24); GLUCOSE 236 mg/dl (70-220); POTASSIUM 3.7 mmol/L (3.5-5.1); SODIUM 133 mmol/L (135-144)
[2017-07-02] MEDS: NYSTATIN 30 GM POWDER BTL TOP ×2 (08:46→20:44)
[2017-07-02] MEDS: COLLAGENASE 30 GM TUBE TOP (08:46)
[2017-07-02] MEDS: BACITRACIN 0.5%/ZINC 28.35 GM OINT TOP ×2 (08:47→20:44)
[2017-07-02] MEDS: INSULIN GLARGINE [LANtus] 3 ML PEN SC (08:55)
[2017-07-02] MEDS: FAMOTIDINE 20 MG INJ IV (08:57)
[2017-07-02] MEDS: LEVETIRACETAM 500 MG (PMX) 100 ML IVPB (08:57)
[2017-07-02] MEDS: HEPARIN 5,000 UNIT/0.5 ML VIAL SC ×2 (09:01→20:51)
[2017-07-02] MEDS: TOBRAMYCIN/0.25NS 300 MG/5 ML INHAL NEB (10:02)
[2017-07-03] MEDS: IPRATROPIUM (NEB) 0.5 MG/2.5 ML AMP HHN ×6 (00:08→20:49)
[2017-07-03] MEDS: TOBRAMYCIN/0.25NS 300 MG/5 ML INHAL NEB ×2 (00:08→08:20)
[2017-07-03] MEDS: ALBUTEROL 0.083% (NEB) 2.5 MG/3 ML AMP HHN ×6 (00:08→20:49)
[2017-07-03] MEDS: INSULIN ASPART [NOVOLOG] 3 ML PEN SC ×6 (01:07→20:59)
[2017-07-03 06:34] LABS: ADD MAN DIFF? NO
[2017-07-03 06:44] LABS: BASOPHILS % 0.4 % (0.0-2.0); EOSINOPHILS # 0.1 10^3/ul (0.0-0.5); EOSINOPHILS % 0.5 % (0.0-7.0); HEMATOCRIT 33.2 % (42.0-52.0); HEMOGLOBIN 10.7 g/dl (14.0-18.0); LYMPHOCYTES # 2.4 10^3/ul (0.8-2.9); LYMPHOCYTES % 21.9 % (15.0-51.0); MEAN CORPUSCULAR HEMOGLOBIN 28.9 pg (29.0-33.0); MEAN CORPUSCULAR HGB CONC 32.2 g/dl (32.0-37.0); MEAN CORPUSCULAR VOLUME 89.7 fl (82.0-101.0); MEAN PLATELET VOLUME 12.9 fl (7.4-10.4); MONOCYTE # 0.8 10^3/ul (0.3-0.9); NEUTROPHIL # 7.6 10^3/ul (1.6-7.5); NEUTROPHILS % 69.3 % (39.0-77.0); PLATELET COUNT 251 10^3/UL (140-415); RED CELL DISTRIBUTION WIDTH 15.4 % (11.5-14.5)
[2017-07-03 07:12] LABS: ANION GAP 15 (8-16); BLOOD UREA NITROGEN 28 mg/dl (7-20); CALCIUM 8.4 mg/dl (8.4-10.2); CARBON DIOXIDE 27 mmol/L (21-31); CHLORIDE 97 mmol/L (97-110); CREATININE 0.66 mg/dl (0.61-1.24); GLUCOSE 259 mg/dl (70-220); POTASSIUM 4.1 mmol/L (3.5-5.1); SODIUM 135 mmol/L (135-144)
[2017-07-03 07:13] LABS: MAGNESIUM 2.1 mg/dl (1.7-2.5)
[2017-07-03 07:13] LABS: PHOSPHORUS 4.6 mg/dl (2.5-4.9)
[2017-07-03 07:20] LABS: PREALBUMIN 13.3 mg/dl (17.6-36.0)
[2017-07-03] MEDS: FAMOTIDINE 20 MG INJ IV (08:40)
[2017-07-03] MEDS: LEVETIRACETAM 500 MG (PMX) 100 ML IVPB (08:40)
[2017-07-03] MEDS: NYSTATIN 30 GM POWDER BTL TOP ×2 (08:42→20:59)
[2017-07-03] MEDS: BACITRACIN 0.5%/ZINC 28.35 GM OINT TOP ×2 (08:42→20:59)
[2017-07-03] MEDS: COLLAGENASE 30 GM TUBE TOP (08:44)
[2017-07-03] MEDS: TPN 1,000 ML IV ×2 (09:00→16:12)
[2017-07-03] MEDS: INSULIN GLARGINE [LANtus] 3 ML PEN SC (09:06)
[2017-07-03] MEDS: HEPARIN 5,000 UNIT/0.5 ML VIAL SC ×2 (09:07→20:58)
[2017-07-04] MEDS: ALBUTEROL 0.083% (NEB) 2.5 MG/3 ML AMP HHN ×6 (00:15→20:29)
[2017-07-04] MEDS: IPRATROPIUM (NEB) 0.5 MG/2.5 ML AMP HHN ×6 (00:15→20:29)
[2017-07-04] MEDS: TOBRAMYCIN/0.25NS 300 MG/5 ML INHAL NEB ×3 (00:15→20:29)
[2017-07-04] MEDS: INSULIN ASPART [NOVOLOG] 3 ML PEN SC ×6 (00:59→21:16)
[2017-07-04] MEDS: TPN 1,000 ML IV ×4 (01:49→23:00)
[2017-07-04 06:11] LABS: ADD MAN DIFF? NO
[2017-07-04 06:25] LABS: BASOPHILS % 0.4 % (0.0-2.0); EOSINOPHILS # 0.1 10^3/ul (0.0-0.5); EOSINOPHILS % 0.6 % (0.0-7.0); HEMATOCRIT 33.1 % (42.0-52.0); HEMOGLOBIN 10.3 g/dl (14.0-18.0); LYMPHOCYTES # 1.9 10^3/ul (0.8-2.9); LYMPHOCYTES % 17.4 % (15.0-51.0); MEAN CORPUSCULAR HEMOGLOBIN 28.2 pg (29.0-33.0); MEAN CORPUSCULAR HGB CONC 31.1 g/dl (32.0-37.0); MEAN CORPUSCULAR VOLUME 90.7 fl (82.0-101.0); MEAN PLATELET VOLUME 12.5 fl (7.4-10.4); MONOCYTE # 0.8 10^3/ul (0.3-0.9); MONOCYTES % 7.1 % (0.0-11.0); NEUTROPHIL # 7.9 10^3/ul (1.6-7.5); NEUTROPHILS % 73.8 % (39.0-77.0); PLATELET COUNT 277 10^3/UL (140-415); RED BLOOD COUNT 3.65 10^6/ul (4.70-6.10); RED CELL DISTRIBUTION WIDTH 15.7 % (11.5-14.5)
[2017-07-04 06:25] LABS: WHITE BLOOD COUNT 10.7 10^3/ul (4.8-10.8)
[2017-07-04 06:48] LABS: PHOSPHORUS 4.5 mg/dl (2.5-4.9)
[2017-07-04 06:48] LABS: MAGNESIUM 2.1 mg/dl (1.7-2.5)
[2017-07-04 06:50] LABS: ALANINE AMINOTRANSFERASE 81 IU/L (13-69); ALBUMIN 2.9 g/dl (3.3-4.9); ALBUMIN/GLOBULIN RATIO 0.48; ALKALINE PHOSPHATASE 291 IU/L (42-121); ANION GAP 12 (8-16); ASPARTATE AMINO TRANSFERASE 89 IU/L (15-46); BILIRUBIN,INDIRECT 1.1 mg/dl (0-1.1); BILIRUBIN,TOTAL 2.3 mg/dl (0.2-1.3); BLOOD UREA NITROGEN 31 mg/dl (7-20); CALCIUM 8.5 mg/dl (8.4-10.2); CARBON DIOXIDE 29 mmol/L (21-31); CHLORIDE 99 mmol/L (97-110); CREATININE 0.71 mg/dl (0.61-1.24); GLUCOSE 227 mg/dl (70-220); POTASSIUM 4.2 mmol/L (3.5-5.1); SODIUM 136 mmol/L (135-144); TOTAL PROTEIN 8.9 g/dl (6.1-8.1)
[2017-07-04] MEDS: FAMOTIDINE 20 MG INJ IV (09:10)
[2017-07-04] MEDS: LEVETIRACETAM 500 MG (PMX) 100 ML IVPB (09:10)
[2017-07-04] MEDS: NYSTATIN 30 GM POWDER BTL TOP ×2 (09:17→21:08)
[2017-07-04] MEDS: COLLAGENASE 30 GM TUBE TOP (09:17)
[2017-07-04] MEDS: BACITRACIN 0.5%/ZINC 28.35 GM OINT TOP ×2 (09:18→21:08)
[2017-07-04] MEDS: INSULIN GLARGINE [LANtus] 3 ML PEN SC (09:25)
[2017-07-04] MEDS: HEPARIN 5,000 UNIT/0.5 ML VIAL SC ×2 (09:26→21:17)
[2017-07-04] MEDS: FAT EMULSION 20% 250 ML IV (21:08)
[2017-07-05] MEDS: ALBUTEROL 0.083% (NEB) 2.5 MG/3 ML AMP HHN ×6 (00:10→20:12)
[2017-07-05] MEDS: IPRATROPIUM (NEB) 0.5 MG/2.5 ML AMP HHN ×6 (00:10→20:12)
[2017-07-05] MEDS: INSULIN ASPART [NOVOLOG] 3 ML PEN SC ×6 (01:09→21:06)
[2017-07-05 06:16] LABS: ADD MAN DIFF? NO
[2017-07-05 06:22] LABS: WHITE BLOOD COUNT 11.3 10^3/ul (4.8-10.8)
[2017-07-05 06:22] LABS: BASOPHILS % 0.4 % (0.0-2.0); EOSINOPHILS # 0.1 10^3/ul (0.0-0.5); EOSINOPHILS % 0.5 % (0.0-7.0); HEMATOCRIT 32.8 % (42.0-52.0); HEMOGLOBIN 10.4 g/dl (14.0-18.0); LYMPHOCYTES # 1.8 10^3/ul (0.8-2.9); LYMPHOCYTES % 15.8 % (15.0-51.0); MEAN CORPUSCULAR HGB CONC 31.7 g/dl (32.0-37.0); MEAN CORPUSCULAR VOLUME 91.4 fl (82.0-101.0); MEAN PLATELET VOLUME 12.4 fl (7.4-10.4); MONOCYTE # 0.8 10^3/ul (0.3-0.9); MONOCYTES % 6.8 % (0.0-11.0); NEUTROPHIL # 8.6 10^3/ul (1.6-7.5); NEUTROPHILS % 75.9 % (39.0-77.0); PLATELET COUNT 265 10^3/UL (140-415); RED BLOOD COUNT 3.59 10^6/ul (4.70-6.10); RED CELL DISTRIBUTION WIDTH 15.5 % (11.5-14.5)
[2017-07-05 06:40] LABS: ANION GAP 14 (8-16); BLOOD UREA NITROGEN 33 mg/dl (7-20); CALCIUM 8.3 mg/dl (8.4-10.2); CARBON DIOXIDE 29 mmol/L (21-31); CHLORIDE 97 mmol/L (97-110); CREATININE 0.67 mg/dl (0.61-1.24); GLUCOSE 214 mg/dl (70-220); POTASSIUM 4.3 mmol/L (3.5-5.1); SODIUM 136 mmol/L (135-144)
[2017-07-05] MEDS: FAMOTIDINE 20 MG INJ IV (08:37)
[2017-07-05] MEDS: BACITRACIN 0.5%/ZINC 28.35 GM OINT TOP ×2 (08:39→21:06)
[2017-07-05] MEDS: COLLAGENASE 30 GM TUBE TOP (08:40)
[2017-07-05] MEDS: NYSTATIN 30 GM POWDER BTL TOP ×2 (08:40→21:06)
[2017-07-05] MEDS: TOBRAMYCIN/0.25NS 300 MG/5 ML INHAL NEB ×2 (08:47→20:12)
[2017-07-05] MEDS: HEPARIN 5,000 UNIT/0.5 ML VIAL SC ×2 (08:49→21:05)
[2017-07-05] MEDS: INSULIN GLARGINE [LANtus] 3 ML PEN SC (08:49)
[2017-07-05] MEDS: LEVETIRACETAM 500 MG (PMX) 100 ML IVPB (09:11)
[2017-07-05] MEDS: TPN 1,000 ML IV (10:20)
[2017-07-06] MEDS: ALBUTEROL 0.083% (NEB) 2.5 MG/3 ML AMP HHN ×6 (00:45→20:06)
[2017-07-06] MEDS: IPRATROPIUM (NEB) 0.5 MG/2.5 ML AMP HHN ×6 (00:45→20:06)
[2017-07-06] MEDS: INSULIN ASPART [NOVOLOG] 3 ML PEN SC ×6 (01:37→21:59)
[2017-07-06] MEDS: TPN 1,000 ML IV ×2 (05:26→21:48)
[2017-07-06 06:58] LABS: ALANINE AMINOTRANSFERASE 84 IU/L (13-69); ALBUMIN 3.1 g/dl (3.3-4.9); ALKALINE PHOSPHATASE 324 IU/L (42-121); ANION GAP 14 (8-16); ASPARTATE AMINO TRANSFERASE 103 IU/L (15-46); BILIRUBIN,INDIRECT 1.1 mg/dl (0-1.1); BLOOD UREA NITROGEN 33 mg/dl (7-20); CALCIUM 8.6 mg/dl (8.4-10.2); CARBON DIOXIDE 31 mmol/L (21-31); CHLORIDE 97 mmol/L (97-110); CREATININE 0.69 mg/dl (0.61-1.24); GLUCOSE 166 mg/dl (70-220); SODIUM 138 mmol/L (135-144); TOTAL PROTEIN 9.3 g/dl (6.1-8.1)
[2017-07-06 07:00] LABS: ANION GAP 14 (8-16); BLOOD UREA NITROGEN 34 mg/dl (7-20); CALCIUM 8.6 mg/dl (8.4-10.2); CARBON DIOXIDE 30 mmol/L (21-31); CHLORIDE 97 mmol/L (97-110); CREATININE 0.65 mg/dl (0.61-1.24); GLUCOSE 161 mg/dl (70-220); PHOSPHORUS 4.7 mg/dl (2.5-4.9); POTASSIUM 4.2 mmol/L (3.5-5.1); SODIUM 137 mmol/L (135-144); TRIGLYCERIDES 182 mg/dl (0-149)
[2017-07-06] MEDS: TOBRAMYCIN/0.25NS 300 MG/5 ML INHAL NEB (08:13)
[2017-07-06] MEDS: FAMOTIDINE 20 MG INJ IV (09:03)
[2017-07-06] MEDS: COLLAGENASE 30 GM TUBE TOP (09:04)
[2017-07-06] MEDS: NYSTATIN 30 GM POWDER BTL TOP ×2 (09:04→21:52)
[2017-07-06] MEDS: HEPARIN 5,000 UNIT/0.5 ML VIAL SC ×2 (09:07→22:05)
[2017-07-06] MEDS: INSULIN GLARGINE [LANtus] 3 ML PEN SC (09:09)
[2017-07-06] MEDS: BACITRACIN 0.5%/ZINC 28.35 GM OINT TOP ×2 (09:24→21:52)
[2017-07-06] MEDS: LEVETIRACETAM 500 MG (PMX) 100 ML IVPB (09:25)
[2017-07-06] MEDS: FAT EMULSION 20% 250 ML IV (21:15)
[2017-07-07] MEDS: ALBUTEROL 0.083% (NEB) 2.5 MG/3 ML AMP HHN ×6 (01:04→20:33)
[2017-07-07] MEDS: IPRATROPIUM (NEB) 0.5 MG/2.5 ML AMP HHN ×6 (01:04→20:33)
[2017-07-07] MEDS: INSULIN ASPART [NOVOLOG] 3 ML PEN SC ×6 (01:36→20:29)
[2017-07-07] MEDS: LEVETIRACETAM 500 MG (PMX) 100 ML IVPB (08:54)
[2017-07-07] MEDS: FAMOTIDINE 20 MG INJ IV (08:54)
[2017-07-07] MEDS: COLLAGENASE 30 GM TUBE TOP (09:00)
[2017-07-07] MEDS: NYSTATIN 30 GM POWDER BTL TOP ×2 (09:00→20:26)
[2017-07-07] MEDS: BACITRACIN 0.5%/ZINC 28.35 GM OINT TOP ×2 (09:00→20:25)
[2017-07-07] MEDS: HEPARIN 5,000 UNIT/0.5 ML VIAL SC ×2 (09:14→20:28)
[2017-07-07] MEDS: INSULIN GLARGINE [LANtus] 3 ML PEN SC (09:15)
[2017-07-07] MEDS: TPN 1,000 ML IV (14:28)
[2017-07-08] MEDS: IPRATROPIUM (NEB) 0.5 MG/2.5 ML AMP HHN ×6 (00:47→19:58)
[2017-07-08] MEDS: ALBUTEROL 0.083% (NEB) 2.5 MG/3 ML AMP HHN ×6 (00:47→19:57)
[2017-07-08] MEDS: INSULIN ASPART [NOVOLOG] 3 ML PEN SC ×6 (01:11→20:57)
[2017-07-08 05:51] LABS: ADD MAN DIFF? NO
[2017-07-08] MEDS: TPN 1,000 ML IV ×2 (06:05→20:35)
[2017-07-08 06:08] LABS: WHITE BLOOD COUNT 9.4 10^3/ul (4.8-10.8)
[2017-07-08 06:08] LABS: BASOPHILS % 0.4 % (0.0-2.0); EOSINOPHILS # 0.1 10^3/ul (0.0-0.5); EOSINOPHILS % 0.6 % (0.0-7.0); HEMATOCRIT 32.2 % (42.0-52.0); HEMOGLOBIN 9.7 g/dl (14.0-18.0); LYMPHOCYTES # 1.6 10^3/ul (0.8-2.9); MEAN CORPUSCULAR HEMOGLOBIN 28.5 pg (29.0-33.0); MEAN CORPUSCULAR HGB CONC 30.1 g/dl (32.0-37.0); MEAN CORPUSCULAR VOLUME 94.7 fl (82.0-101.0); MEAN PLATELET VOLUME 11.9 fl (7.4-10.4); MONOCYTE # 0.6 10^3/ul (0.3-0.9); MONOCYTES % 6.7 % (0.0-11.0); NEUTROPHILS % 74.9 % (39.0-77.0); PLATELET COUNT 260 10^3/UL (140-415); RED CELL DISTRIBUTION WIDTH 15.6 % (11.5-14.5)
[2017-07-08 06:13] LABS: INR 1.22; PROTIME 15.5 Sec (12.2-14.2); PT RATIO 1.2
[2017-07-08 06:14] LABS: PARTIAL THROMBOPLASTIN TIME 44.4 Sec (25.0-35.0)
[2017-07-08 06:26] LABS: LACTIC ACID 1.2 mmol/L (0.5-2.0)
[2017-07-08 06:55] LABS: ALANINE AMINOTRANSFERASE 80 IU/L (13-69); ALBUMIN 2.8 g/dl (3.3-4.9); ALBUMIN/GLOBULIN RATIO 0.49; ALKALINE PHOSPHATASE 254 IU/L (42-121); AMYLASE 70 U/L (11-123); ANION GAP 11 (8-16); ASPARTATE AMINO TRANSFERASE 81 IU/L (15-46); BILIRUBIN,INDIRECT 0.9 mg/dl (0-1.1); BILIRUBIN,TOTAL 1.3 mg/dl (0.2-1.3); BLOOD UREA NITROGEN 35 mg/dl (7-20); CALCIUM 8.4 mg/dl (8.4-10.2); CARBON DIOXIDE 25 mmol/L (21-31); CHLORIDE 109 mmol/L (97-110); GLUCOSE 201 mg/dl (70-220); LIPASE 237 U/L (23-300); PHOSPHORUS 3.8 mg/dl (2.5-4.9); POTASSIUM 4.9 mmol/L (3.5-5.1); SODIUM 140 mmol/L (135-144); TOTAL PROTEIN 8.5 g/dl (6.1-8.1)
[2017-07-08 06:58] LABS: B-TYPE NATRIURETIC PEPTIDE 56 PG/ML (0-125)
[2017-07-08] MEDS: FAMOTIDINE 20 MG INJ IV (08:56)
[2017-07-08] MEDS: LEVETIRACETAM 500 MG (PMX) 100 ML IVPB (08:56)
[2017-07-08] MEDS: INSULIN GLARGINE [LANtus] 3 ML PEN SC (09:20)
[2017-07-08] MEDS: HEPARIN 5,000 UNIT/0.5 ML VIAL SC ×2 (09:20→21:19)
[2017-07-08] MEDS: NYSTATIN 30 GM POWDER BTL TOP ×2 (12:38→20:42)
[2017-07-08] MEDS: COLLAGENASE 30 GM TUBE TOP (12:38)
[2017-07-08] MEDS: BACITRACIN 0.5%/ZINC 28.35 GM OINT TOP ×2 (12:39→20:42)
[2017-07-08] MEDS: FAT EMULSION 20% 250 ML IV (20:39)
[2017-07-09] MEDS: IPRATROPIUM (NEB) 0.5 MG/2.5 ML AMP HHN ×6 (00:28→21:05)
[2017-07-09] MEDS: ALBUTEROL 0.083% (NEB) 2.5 MG/3 ML AMP HHN ×6 (00:28→21:06)
[2017-07-09] MEDS: INSULIN ASPART [NOVOLOG] 3 ML PEN SC ×6 (00:43→21:26)
[2017-07-09 07:06] LABS: ANION GAP 14 (8-16); BLOOD UREA NITROGEN 31 mg/dl (7-20); CALCIUM 8.2 mg/dl (8.4-10.2); CARBON DIOXIDE 20 mmol/L (21-31); CHLORIDE 111 mmol/L (97-110); CREATININE 0.59 mg/dl (0.61-1.24); GLUCOSE 232 mg/dl (70-220); PHOSPHORUS 3.9 mg/dl (2.5-4.9); POTASSIUM 4.1 mmol/L (3.5-5.1); SODIUM 141 mmol/L (135-144)
[2017-07-09] MEDS: LEVETIRACETAM 500 MG (PMX) 100 ML IVPB (08:35)
[2017-07-09] MEDS: FAMOTIDINE 20 MG INJ IV (08:37)
[2017-07-09] MEDS: COLLAGENASE 30 GM TUBE TOP (08:47)
[2017-07-09] MEDS: NYSTATIN 30 GM POWDER BTL TOP ×2 (08:47→21:26)
[2017-07-09] MEDS: INSULIN GLARGINE [LANtus] 3 ML PEN SC (08:49)
[2017-07-09] MEDS: HEPARIN 5,000 UNIT/0.5 ML VIAL SC ×2 (08:49→21:24)
[2017-07-09] MEDS: BACITRACIN 0.5%/ZINC 28.35 GM OINT TOP ×2 (09:06→21:23)
[2017-07-09] MEDS: TPN 1,000 ML IV (14:04)
[2017-07-10] MEDS: IPRATROPIUM (NEB) 0.5 MG/2.5 ML AMP HHN ×6 (00:26→20:32)
[2017-07-10] MEDS: ALBUTEROL 0.083% (NEB) 2.5 MG/3 ML AMP HHN ×6 (00:26→20:32)
[2017-07-10] MEDS: INSULIN ASPART [NOVOLOG] 3 ML PEN SC ×6 (01:19→20:48)
[2017-07-10] MEDS: TPN 1,000 ML IV ×2 (03:30→20:50)
[2017-07-10 06:56] LABS: ANION GAP 14 (8-16); BLOOD UREA NITROGEN 28 mg/dl (7-20); CALCIUM 8.3 mg/dl (8.4-10.2); CARBON DIOXIDE 22 mmol/L (21-31); CHLORIDE 111 mmol/L (97-110); CREATININE 0.62 mg/dl (0.61-1.24); GLUCOSE 201 mg/dl (70-220); MAGNESIUM 1.9 mg/dl (1.7-2.5); PHOSPHORUS 3.8 mg/dl (2.5-4.9); POTASSIUM 4.1 mmol/L (3.5-5.1); SODIUM 143 mmol/L (135-144); TRIGLYCERIDES 147 mg/dl (0-149)
[2017-07-10 07:02] LABS: PREALBUMIN 17.9 mg/dl (17.6-36.0)
[2017-07-10] MEDS: NYSTATIN 30 GM POWDER BTL TOP ×2 (08:44→20:51)
[2017-07-10] MEDS: COLLAGENASE 30 GM TUBE TOP (08:44)
[2017-07-10] MEDS: FAMOTIDINE 20 MG INJ IV (08:45)
[2017-07-10] MEDS: LEVETIRACETAM 500 MG (PMX) 100 ML IVPB (08:45)
[2017-07-10] MEDS: BACITRACIN 0.5%/ZINC 28.35 GM OINT TOP ×2 (08:45→20:52)
[2017-07-10] MEDS: HEPARIN 5,000 UNIT/0.5 ML VIAL SC ×2 (09:06→20:55)
[2017-07-10] MEDS: INSULIN GLARGINE [LANtus] 3 ML PEN SC (09:06)
[2017-07-11] MEDS: INSULIN ASPART [NOVOLOG] 3 ML PEN SC ×5 (01:11→21:00)
[2017-07-11] MEDS: ALBUTEROL 0.083% (NEB) 2.5 MG/3 ML AMP HHN ×6 (01:58→21:00)
[2017-07-11] MEDS: IPRATROPIUM (NEB) 0.5 MG/2.5 ML AMP HHN ×6 (01:58→21:00)
[2017-07-11 06:13] LABS: ANION GAP 12 (8-16); BLOOD UREA NITROGEN 30 mg/dl (7-20); CALCIUM 8.6 mg/dl (8.4-10.2); CARBON DIOXIDE 26 mmol/L (21-31); CHLORIDE 109 mmol/L (97-110); CREATININE 0.63 mg/dl (0.61-1.24); GLUCOSE 187 mg/dl (70-220); MAGNESIUM 1.8 mg/dl (1.7-2.5); PHOSPHORUS 3.5 mg/dl (2.5-4.9); POTASSIUM 3.8 mmol/L (3.5-5.1); SODIUM 143 mmol/L (135-144)
[2017-07-11] MEDS: TPN 1,000 ML IV ×2 (07:41→14:04)
[2017-07-11] MEDS: FAMOTIDINE 20 MG INJ IV (08:02)
[2017-07-11] MEDS: NYSTATIN 30 GM POWDER BTL TOP ×2 (08:02→21:00)
[2017-07-11] MEDS: LEVETIRACETAM 500 MG (PMX) 100 ML IVPB (08:02)
[2017-07-11] MEDS: COLLAGENASE 30 GM TUBE TOP (08:04)
[2017-07-11] MEDS: INSULIN GLARGINE [LANtus] 3 ML PEN SC (08:23)
[2017-07-11] MEDS: HEPARIN 5,000 UNIT/0.5 ML VIAL SC ×2 (08:23→20:55)
[2017-07-11] MEDS: BACITRACIN 0.5%/ZINC 28.35 GM OINT TOP ×3 (09:46→21:00)
[2017-07-11 15:42] LABS: ADD MAN DIFF? NO
[2017-07-11 15:43] LABS: WHITE BLOOD COUNT 9.5 10^3/ul (4.8-10.8)
[2017-07-11 15:43] LABS: BASOPHILS % 0.2 % (0.0-2.0); EOSINOPHILS % 0.2 % (0.0-7.0); HEMATOCRIT 28.1 % (42.0-52.0); HEMOGLOBIN 8.9 g/dl (14.0-18.0); LYMPHOCYTES # 1.5 10^3/ul (0.8-2.9); LYMPHOCYTES % 15.9 % (15.0-51.0); MEAN CORPUSCULAR HEMOGLOBIN 30.3 pg (29.0-33.0); MEAN CORPUSCULAR HGB CONC 31.7 g/dl (32.0-37.0); MEAN CORPUSCULAR VOLUME 95.6 fl (82.0-101.0); MEAN PLATELET VOLUME 11.7 fl (7.4-10.4); MONOCYTE # 0.5 10^3/ul (0.3-0.9); MONOCYTES % 5.1 % (0.0-11.0); NEUTROPHIL # 7.4 10^3/ul (1.6-7.5); NEUTROPHILS % 78.2 % (39.0-77.0); PLATELET COUNT 186 10^3/UL (140-415); RED BLOOD COUNT 2.94 10^6/ul (4.70-6.10); RED CELL DISTRIBUTION WIDTH 15.4 % (11.5-14.5)
[2017-07-11 16:03] LABS: INR 1.47; PROTIME 17.9 Sec (12.2-14.2); PT RATIO 1.4
[2017-07-11 16:04] LABS: PARTIAL THROMBOPLASTIN TIME 50.6 Sec (25.0-35.0)
[2017-07-11 16:05] LABS: LACTIC ACID 1.2 mmol/L (0.5-2.0)
[2017-07-11 16:06] LABS: ALANINE AMINOTRANSFERASE 58 IU/L (13-69); ALBUMIN 2.9 g/dl (3.3-4.9); ALBUMIN/GLOBULIN RATIO 0.56; ALKALINE PHOSPHATASE 149 IU/L (42-121); ANION GAP 16 (8-16); ASPARTATE AMINO TRANSFERASE 60 IU/L (15-46); BILIRUBIN,TOTAL 1.7 mg/dl (0.2-1.3); BLOOD UREA NITROGEN 28 mg/dl (7-20); CALCIUM 7.8 mg/dl (8.4-10.2); CARBON DIOXIDE 23 mmol/L (21-31); CHLORIDE 102 mmol/L (97-110); CREATININE 0.79 mg/dl (0.61-1.24); POTASSIUM 4.2 mmol/L (3.5-5.1); SODIUM 137 mmol/L (135-144)
[2017-07-11 16:07] LABS: MAGNESIUM 2.2 mg/dl (1.7-2.5)
[2017-07-11 16:07] LABS: PHOSPHORUS 4.5 mg/dl (2.5-4.9)
[2017-07-11 16:09] LABS: GLUCOSE 595 mg/dl (70-220)
[2017-07-11] MEDS: FAT EMULSION 20% 250 ML IV (20:50)
[2017-07-12] MEDS: ALBUTEROL 0.083% (NEB) 2.5 MG/3 ML AMP HHN ×4 (01:10→12:50)
[2017-07-12] MEDS: IPRATROPIUM (NEB) 0.5 MG/2.5 ML AMP HHN ×4 (01:10→12:50)
[2017-07-12] MEDS: INSULIN ASPART [NOVOLOG] 3 ML PEN SC ×6 (01:20→20:11)
[2017-07-12] MEDS: TPN 1,000 ML IV ×2 (06:03→17:17)
[2017-07-12 06:08] LABS: ADD MAN DIFF? NO
[2017-07-12 06:15] LABS: WHITE BLOOD COUNT 11.7 10^3/ul (4.8-10.8)
[2017-07-12 06:15] LABS: BASOPHILS % 0.3 % (0.0-2.0); EOSINOPHILS # 0.1 10^3/ul (0.0-0.5); EOSINOPHILS % 0.4 % (0.0-7.0); HEMATOCRIT 29.3 % (42.0-52.0); HEMOGLOBIN 9.4 g/dl (14.0-18.0); LYMPHOCYTES # 1.9 10^3/ul (0.8-2.9); LYMPHOCYTES % 16.1 % (15.0-51.0); MEAN CORPUSCULAR HEMOGLOBIN 30.3 pg (29.0-33.0); MEAN CORPUSCULAR HGB CONC 32.1 g/dl (32.0-37.0); MEAN CORPUSCULAR VOLUME 94.5 fl (82.0-101.0); MEAN PLATELET VOLUME 11.9 fl (7.4-10.4); MONOCYTE # 0.6 10^3/ul (0.3-0.9); MONOCYTES % 5.5 % (0.0-11.0); NEUTROPHIL # 9.1 10^3/ul (1.6-7.5); NEUTROPHILS % 77.2 % (39.0-77.0); PLATELET COUNT 202 10^3/UL (140-415); RED CELL DISTRIBUTION WIDTH 15.7 % (11.5-14.5)
[2017-07-12 06:33] LABS: INR 1.23; PROTIME 15.6 Sec (12.2-14.2); PT RATIO 1.2
[2017-07-12 06:34] LABS: PARTIAL THROMBOPLASTIN TIME 38.7 Sec (25.0-35.0)
[2017-07-12 06:35] LABS: LACTIC ACID 1.5 mmol/L (0.5-2.0)
[2017-07-12 06:37] LABS: ALANINE AMINOTRANSFERASE 65 IU/L (13-69); ALBUMIN 2.7 g/dl (3.3-4.9); ALBUMIN/GLOBULIN RATIO 0.46; ALKALINE PHOSPHATASE 215 IU/L (42-121); ANION GAP 12 (8-16); ASPARTATE AMINO TRANSFERASE 55 IU/L (15-46); BILIRUBIN,INDIRECT 0.9 mg/dl (0-1.1); BILIRUBIN,TOTAL 1.5 mg/dl (0.2-1.3); BLOOD UREA NITROGEN 31 mg/dl (7-20); CALCIUM 8.4 mg/dl (8.4-10.2); CARBON DIOXIDE 27 mmol/L (21-31); CHLORIDE 107 mmol/L (97-110); CREATININE 0.55 mg/dl (0.61-1.24); GLUCOSE 204 mg/dl (70-220); MAGNESIUM 1.8 mg/dl (1.7-2.5); PHOSPHORUS 3.6 mg/dl (2.5-4.9); POTASSIUM 3.7 mmol/L (3.5-5.1); SODIUM 142 mmol/L (135-144); TOTAL PROTEIN 8.5 g/dl (6.1-8.1)
[2017-07-12 06:44] LABS: B-TYPE NATRIURETIC PEPTIDE 98 PG/ML (0-125)
[2017-07-12] MEDS: FAMOTIDINE 20 MG INJ IV (08:23)
[2017-07-12] MEDS: LEVETIRACETAM 500 MG (PMX) 100 ML IVPB (08:23)
[2017-07-12] MEDS: NYSTATIN 30 GM POWDER BTL TOP ×2 (08:24→20:02)
[2017-07-12] MEDS: BACITRACIN 0.5%/ZINC 28.35 GM OINT TOP ×2 (08:24→20:02)
[2017-07-12] MEDS: COLLAGENASE 30 GM TUBE TOP (08:25)
[2017-07-12] MEDS: INSULIN GLARGINE [LANtus] 3 ML PEN SC ×2 (08:50→10:56)
[2017-07-12] MEDS: LORAZEPAM 2 MG INJ IV (10:57)
[2017-07-12] MEDS ORDERED: ROPIVACAINE 0.5 % 30 ML VIAL (11:23)
[2017-07-12] MEDS ORDERED: ROCURONIUM 50 MG INJ ×3 (11:23→13:32)
[2017-07-12] MEDS ORDERED: FENTAnyl 50 MCG/ML VIAL (12:05)
[2017-07-12] MEDS ORDERED: BUPIVACAINE 0.25% (MPF) 30 ML INJ (12:14)
[2017-07-12] MEDS ORDERED: HYDROmorphONE 2 MG/ML SYG (12:15)
[2017-07-12] MEDS: BUPIVACAINE 0.25% (MPF) 30 ML INJ INJ (12:21)
[2017-07-12] MEDS ORDERED: METOPROLOL 5 MG INJ (12:54)
[2017-07-12] MEDS ORDERED: HYDROmorphONE (0.2 MG/ML) 10ML SYG IV ×3 (13:00)
[2017-07-12] MEDS: PHYTONADIONE 5 MG in DEXTROSE 5% 50 ML IVPB (13:00)
[2017-07-12] MEDS ORDERED: ONDANSETRON 4 MG INJ IV (13:00)
[2017-07-12] MEDS ORDERED: PHENYLephrine (100 MCG/ML) 5ML SYG (13:43)
[2017-07-12] MEDS ORDERED: GLYCOPYRROLATE 0.4 MG INJ ×2 (14:41)
[2017-07-12] MEDS ORDERED: NEOSTIGMINE 3 MG/3 ML SYRINGE (14:41)
[2017-07-12] MEDS ORDERED: DOCUSATE SODIUM 100 MG CAP PO (15:30)
[2017-07-12] MEDS ORDERED: BISACODYL 10 MG SUPP PR (15:30)
[2017-07-12] MEDS ORDERED: HYDROCODONE/APAP (5/325) TAB PO (15:30)
[2017-07-12] MEDS ORDERED: NA PHOSPHATE/BIPHOS 133 ML ENEMA PR (15:30)
[2017-07-12 15:51] LABS: ADD MAN DIFF? NO
[2017-07-12 15:52] LABS: BASOPHILS % 0.2 % (0.0-2.0); EOSINOPHILS % 0.3 % (0.0-7.0); HEMATOCRIT 22.8 % (42.0-52.0); HEMOGLOBIN 7.2 g/dl (14.0-18.0); LYMPHOCYTES # 1.1 10^3/ul (0.8-2.9); MEAN CORPUSCULAR HEMOGLOBIN 30.4 pg (29.0-33.0); MEAN CORPUSCULAR HGB CONC 31.6 g/dl (32.0-37.0); MEAN CORPUSCULAR VOLUME 96.2 fl (82.0-101.0); MEAN PLATELET VOLUME 10.7 fl (7.4-10.4); MONOCYTE # 0.7 10^3/ul (0.3-0.9); MONOCYTES % 5.3 % (0.0-11.0); NEUTROPHIL # 11.2 10^3/ul (1.6-7.5); NEUTROPHILS % 85.6 % (39.0-77.0); PLATELET COUNT 154 10^3/UL (140-415); RED BLOOD COUNT 2.37 10^6/ul (4.70-6.10); RED CELL DISTRIBUTION WIDTH 15.7 % (11.5-14.5)
[2017-07-12 15:52] LABS: WHITE BLOOD COUNT 13.1 10^3/ul (4.8-10.8)
[2017-07-12 16:18] LABS: ALANINE AMINOTRANSFERASE 84 IU/L (13-69); ALBUMIN 2.4 g/dl (3.3-4.9); ALBUMIN/GLOBULIN RATIO 0.52; ALKALINE PHOSPHATASE 149 IU/L (42-121); ANION GAP 13 (8-16); ASPARTATE AMINO TRANSFERASE 105 IU/L (15-46); BILIRUBIN,INDIRECT 0.8 mg/dl (0-1.1); BILIRUBIN,TOTAL 2.2 mg/dl (0.2-1.3); BLOOD UREA NITROGEN 27 mg/dl (7-20); CALCIUM 7.5 mg/dl (8.4-10.2); CARBON DIOXIDE 22 mmol/L (21-31); CHLORIDE 110 mmol/L (97-110); CREATININE 0.65 mg/dl (0.61-1.24); GLUCOSE 115 mg/dl (70-220); POTASSIUM 3.3 mmol/L (3.5-5.1); SODIUM 142 mmol/L (135-144)
[2017-07-12 16:20] LABS: MAGNESIUM 1.5 mg/dl (1.7-2.5)
[2017-07-12 16:20] LABS: PHOSPHORUS 4.1 mg/dl (2.5-4.9)
[2017-07-12 16:24] LABS: INR 1.42; PROTIME 17.4 Sec (12.2-14.2); PT RATIO 1.4
[2017-07-12 16:24] LABS: LACTIC ACID 3.8 mmol/L (0.5-2.0)
[2017-07-12 16:25] LABS: PARTIAL THROMBOPLASTIN TIME 41.3 Sec (25.0-35.0)
[2017-07-12] MEDS: D5W-0.45 NACL + KCL 20 MEQ 1,000 ML IV (17:16)
[2017-07-12] MEDS: MAGNESIUM SULFATE 4 GM/100 ML 100 ML IVPB (19:02)
[2017-07-12] MEDS: HYDROmorphONE 1 MG/ML SYG IV (19:54)
[2017-07-12] MEDS: POTASSIUM CHLORIDE 250 ML IVPB (20:48)
[2017-07-12] MEDS: IPRATROPIUM (HFA) 12.9 GM INHALER INH (21:00)
[2017-07-12] MEDS: ALBUTEROL HFA 8 GM INHALER INH (21:00)
[2017-07-13] MEDS: ALBUTEROL HFA 8 GM INHALER INH ×5 (01:00→17:00)
[2017-07-13] MEDS: INSULIN ASPART [NOVOLOG] 3 ML PEN SC ×6 (01:13→20:50)
[2017-07-13] MEDS: HYDROmorphONE 1 MG/ML SYG IV (01:56)
[2017-07-13] MEDS: IPRATROPIUM (HFA) 12.9 GM INHALER INH ×6 (02:02→20:11)
[2017-07-13] MEDS: ONDANSETRON 4 MG INJ IV ×2 (03:15→10:18)
[2017-07-13] MEDS: TPN 1,000 ML IV ×2 (04:38→21:04)
[2017-07-13 05:09] LABS: ADD MAN DIFF? NO
[2017-07-13 05:14] LABS: BASOPHILS % 0.1 % (0.0-2.0); HEMATOCRIT 24.1 % (42.0-52.0); HEMOGLOBIN 7.5 g/dl (14.0-18.0); LYMPHOCYTES # 0.7 10^3/ul (0.8-2.9); MEAN CORPUSCULAR HEMOGLOBIN 29.8 pg (29.0-33.0); MEAN CORPUSCULAR HGB CONC 31.1 g/dl (32.0-37.0); MEAN CORPUSCULAR VOLUME 95.6 fl (82.0-101.0); MEAN PLATELET VOLUME 11.3 fl (7.4-10.4); MONOCYTE # 0.5 10^3/ul (0.3-0.9); MONOCYTES % 3.4 % (0.0-11.0); NEUTROPHIL # 12.3 10^3/ul (1.6-7.5); NEUTROPHILS % 91.1 % (39.0-77.0); PLATELET COUNT 175 10^3/UL (140-415); RED BLOOD COUNT 2.52 10^6/ul (4.70-6.10); RED CELL DISTRIBUTION WIDTH 15.7 % (11.5-14.5)
[2017-07-13 05:14] LABS: WHITE BLOOD COUNT 13.5 10^3/ul (4.8-10.8)
[2017-07-13 05:33] LABS: PROTIME 17.2 Sec (12.2-14.2); PT RATIO 1.3
[2017-07-13 05:46] LABS: ALANINE AMINOTRANSFERASE 76 IU/L (13-69); ALBUMIN 2.4 g/dl (3.3-4.9); ALBUMIN/GLOBULIN RATIO 0.52; ALKALINE PHOSPHATASE 156 IU/L (42-121); ANION GAP 12 (8-16); ASPARTATE AMINO TRANSFERASE 99 IU/L (15-46); BLOOD UREA NITROGEN 30 mg/dl (7-20); CALCIUM 7.3 mg/dl (8.4-10.2); CARBON DIOXIDE 24 mmol/L (21-31); CHLORIDE 109 mmol/L (97-110); CREATININE 0.63 mg/dl (0.61-1.24); GLUCOSE 212 mg/dl (70-220); MAGNESIUM 2.7 mg/dl (1.7-2.5); PHOSPHORUS 3.4 mg/dl (2.5-4.9); POTASSIUM 4.6 mmol/L (3.5-5.1); SODIUM 140 mmol/L (135-144)
[2017-07-13 05:49] LABS: B-TYPE NATRIURETIC PEPTIDE 99 PG/ML (0-125)
[2017-07-13 05:49] LABS: LACTIC ACID 1.8 mmol/L (0.5-2.0)
[2017-07-13] MEDS: INSULIN GLARGINE [LANtus] 3 ML PEN SC (08:34)
[2017-07-13] MEDS: COLLAGENASE 30 GM TUBE TOP (09:19)
[2017-07-13] MEDS: LEVETIRACETAM 500 MG (PMX) 100 ML IVPB (09:20)
[2017-07-13] MEDS: NYSTATIN 30 GM POWDER BTL TOP ×2 (09:20→20:50)
[2017-07-13] MEDS: BACITRACIN 0.5%/ZINC 28.35 GM OINT TOP ×2 (09:20→20:50)
[2017-07-13] MEDS: FAMOTIDINE 20 MG INJ IV (09:21)
[2017-07-13] MEDS ORDERED: LEVALBUTEROL (HFA) 15 GM INHALER INH (10:00)
[2017-07-13] MEDS ORDERED: METOCLOPRAMIDE 10 MG INJ IV (12:00)
[2017-07-13] MEDS: LEVALBUTEROL (HFA) 15 GM INHALER INH ×4 (13:00→20:11)
[2017-07-13] MEDS ORDERED: ONDANSETRON 4 MG INJ IV (16:30)
[2017-07-13] MEDS: FAT EMULSION 20% 250 ML IV (20:42)
[2017-07-14] MEDS: LEVALBUTEROL (HFA) 15 GM INHALER INH ×6 (00:53→21:09)
[2017-07-14] MEDS: IPRATROPIUM (HFA) 12.9 GM INHALER INH ×6 (00:53→21:09)
[2017-07-14] MEDS: INSULIN ASPART [NOVOLOG] 3 ML PEN SC ×6 (01:00→21:50)
[2017-07-14 05:01] LABS: ADD MAN DIFF? NO
[2017-07-14 05:19] LABS: INR 1.42; PROTIME 17.4 Sec (12.2-14.2); PT RATIO 1.4
[2017-07-14 05:20] LABS: PARTIAL THROMBOPLASTIN TIME 47.2 Sec (25.0-35.0)
[2017-07-14 05:25] LABS: ABNORMAL IP MESSAGE 1; BASOPHILS % 0.2 % (0.0-2.0); EOSINOPHILS % 0.2 % (0.0-7.0); LYMPHOCYTES # 1.5 10^3/ul (0.8-2.9); LYMPHOCYTES % 12.7 % (15.0-51.0); MEAN CORPUSCULAR HEMOGLOBIN 30.5 pg (29.0-33.0); MEAN CORPUSCULAR HGB CONC 31.9 g/dl (32.0-37.0); MEAN CORPUSCULAR VOLUME 95.5 fl (82.0-101.0); MEAN PLATELET VOLUME 12.2 fl (7.4-10.4); MONOCYTE # 0.8 10^3/ul (0.3-0.9); MONOCYTES % 6.2 % (0.0-11.0); NEUTROPHIL # 9.6 10^3/ul (1.6-7.5); NEUTROPHILS % 80.2 % (39.0-77.0); PLATELET COUNT 167 10^3/UL (140-415); POSITIVE DIFF @See below; RED CELL DISTRIBUTION WIDTH 16.3 % (11.5-14.5)
[2017-07-14 05:33] LABS: ANION GAP 10 (8-16); BLOOD UREA NITROGEN 29 mg/dl (7-20); CALCIUM 7.8 mg/dl (8.4-10.2); CARBON DIOXIDE 30 mmol/L (21-31); CHLORIDE 107 mmol/L (97-110); CREATININE 0.61 mg/dl (0.61-1.24); GLUCOSE 175 mg/dl (70-220); HEMOGLOBIN 6.7 g/dl (14.0-18.0); MAGNESIUM 1.9 mg/dl (1.7-2.5); PHOSPHORUS 2.6 mg/dl (2.5-4.9); POTASSIUM 3.5 mmol/L (3.5-5.1); SODIUM 143 mmol/L (135-144)
[2017-07-14 07:42] LABS: ALANINE AMINOTRANSFERASE 69 IU/L (13-69); ALBUMIN 2.3 g/dl (3.3-4.9); ALBUMIN/GLOBULIN RATIO 0.48; ALKALINE PHOSPHATASE 157 IU/L (42-121); ANION GAP 10 (8-16); ASPARTATE AMINO TRANSFERASE 63 IU/L (15-46); BILIRUBIN,INDIRECT 0.9 mg/dl (0-1.1); BILIRUBIN,TOTAL 1.6 mg/dl (0.2-1.3); BLOOD UREA NITROGEN 29 mg/dl (7-20); CALCIUM 7.7 mg/dl (8.4-10.2); CARBON DIOXIDE 29 mmol/L (21-31); CHLORIDE 107 mmol/L (97-110); CREATININE 0.62 mg/dl (0.61-1.24); GLUCOSE 174 mg/dl (70-220); POTASSIUM 3.5 mmol/L (3.5-5.1); SODIUM 142 mmol/L (135-144)
[2017-07-14 07:51] LABS: B-TYPE NATRIURETIC PEPTIDE 306 PG/ML (0-125)
[2017-07-14 08:09] LABS: AADO2 Arterial 45.1 mmHg (7.0-24.0); Allen Test ACCEPTAB; Arterial Base Excess 3.8 mmol/L (-3.0-3); Arterial Blood Gas Oxygen Sat 98.5 mmHG (95.0-98.0); Arterial COHb 0.1 % (0.0-3.0); Arterial Fraction of Oxyhgb 97.9 % (93.0-99.0); Arterial MetHb 0.5 % (0.0-1.5); Arterial Total Hemglobin 7.4 g/dl (12.0-18.0); Arterial pCO2 34.6 mmhg (35-45); MODE VENT - AC; Site Right Radial
[2017-07-14] MEDS: FAMOTIDINE 20 MG INJ IV (08:17)
[2017-07-14] MEDS: LEVETIRACETAM 500 MG (PMX) 100 ML IVPB (08:18)
[2017-07-14] MEDS: COLLAGENASE 30 GM TUBE TOP (08:19)
[2017-07-14] MEDS: NYSTATIN 30 GM POWDER BTL TOP ×2 (08:19→21:43)
[2017-07-14] MEDS: BACITRACIN 0.5%/ZINC 28.35 GM OINT TOP ×2 (08:19→21:43)
[2017-07-14] MEDS: INSULIN GLARGINE [LANtus] 3 ML PEN SC ×2 (08:41→21:49)
[2017-07-14] MEDS: SOD CHLORIDE 0.9% 250 ML IV* ×2 (10:38→11:26)
[2017-07-14 14:47] LABS: IMMEDIATE SPIN CROSSMATCH 1 3
[2017-07-14] MEDS: TPN 1,000 ML IV (15:42)
[2017-07-15] MEDS: INSULIN ASPART [NOVOLOG] 3 ML PEN SC ×6 (01:01→20:45)
[2017-07-15] MEDS: LEVALBUTEROL (HFA) 15 GM INHALER INH ×6 (01:11→21:07)
[2017-07-15] MEDS: IPRATROPIUM (HFA) 12.9 GM INHALER INH ×6 (01:11→21:08)
[2017-07-15 04:06] LABS: ADD UMIC YES; UR ASCORBIC ACID NEGATIVE (NEGATIVE); UR BACTERIA FEW /HPF (NONE SEEN); UR BILIRUBIN (Dip) NEGATIVE (NEGATIVE); UR BLOOD (Dip) 1+ mg/dL (NEGATIVE); UR CLARITY SLIGHTLY CLOUDY (CLEAR); UR COLOR AMBER (YELLOW); UR GLUCOSE (Dip) NEGATIVE (NEGATIVE); UR KETONES (Dip) NEGATIVE (NEGATIVE); UR LEUKOCYTE ESTERASE (Dip) 3+ Leu/ul (NEGATIVE); UR MUCUS FEW /HPF (NONE SEEN); UR NITRITE (Dip) NEGATIVE (NEGATIVE); UR RBC 0 /HPF (0-5); UR SPECIFIC GRAVITY (Dip) 1.019 (1.003-1.030); UR SQUAMOUS EPITHELIAL CELL FEW /HPF (FEW); UR TOTAL PROTEIN (Dip) 1+ mg/dl (NEGATIVE); UR UROBILINOGEN (Dip) 2+ mg/dL (NEGATIVE); UR WBC 163 /HPF (0-5)
[2017-07-15 05:00] LABS: ADD MAN DIFF? NO
[2017-07-15 05:08] LABS: WHITE BLOOD COUNT 10.9 10^3/ul (4.8-10.8)
[2017-07-15 05:08] LABS: BASOPHILS % 0.2 % (0.0-2.0); EOSINOPHILS # 0.1 10^3/ul (0.0-0.5); EOSINOPHILS % 0.5 % (0.0-7.0); HEMATOCRIT 24.4 % (42.0-52.0); HEMOGLOBIN 7.7 g/dl (14.0-18.0); LYMPHOCYTES # 1.4 10^3/ul (0.8-2.9); LYMPHOCYTES % 12.9 % (15.0-51.0); MEAN CORPUSCULAR HEMOGLOBIN 29.5 pg (29.0-33.0); MEAN CORPUSCULAR HGB CONC 31.6 g/dl (32.0-37.0); MEAN CORPUSCULAR VOLUME 93.5 fl (82.0-101.0); MEAN PLATELET VOLUME 12.4 fl (7.4-10.4); MONOCYTE # 0.6 10^3/ul (0.3-0.9); MONOCYTES % 5.4 % (0.0-11.0); NEUTROPHIL # 8.8 10^3/ul (1.6-7.5); NEUTROPHILS % 80.5 % (39.0-77.0); PLATELET COUNT 162 10^3/UL (140-415); RED BLOOD COUNT 2.61 10^6/ul (4.70-6.10); RED CELL DISTRIBUTION WIDTH 16.6 % (11.5-14.5)
[2017-07-15] MEDS: TPN 1,000 ML IV ×2 (05:23→23:00)
[2017-07-15 05:39] LABS: ALANINE AMINOTRANSFERASE 72 IU/L (13-69); ALBUMIN 2.5 g/dl (3.3-4.9); ALBUMIN/GLOBULIN RATIO 0.52; ALKALINE PHOSPHATASE 235 IU/L (42-121); ANION GAP 10 (8-16); ASPARTATE AMINO TRANSFERASE 84 IU/L (15-46); BILIRUBIN,INDIRECT 1.1 mg/dl (0-1.1); BILIRUBIN,TOTAL 1.5 mg/dl (0.2-1.3); BLOOD UREA NITROGEN 27 mg/dl (7-20); CALCIUM 7.4 mg/dl (8.4-10.2); CARBON DIOXIDE 27 mmol/L (21-31); CHLORIDE 107 mmol/L (97-110); CREATININE 0.58 mg/dl (0.61-1.24); GLUCOSE 140 mg/dl (70-220); MAGNESIUM 1.8 mg/dl (1.7-2.5); PHOSPHORUS 3.4 mg/dl (2.5-4.9); POTASSIUM 3.3 mmol/L (3.5-5.1); SODIUM 141 mmol/L (135-144); TOTAL PROTEIN 7.3 g/dl (6.1-8.1)
[2017-07-15] MEDS ORDERED: AMIKACIN IV PER PHARMACY XX (09:30)
[2017-07-15] MEDS: LEVETIRACETAM 500 MG (PMX) 100 ML IVPB (09:56)
[2017-07-15] MEDS: BACITRACIN 0.5%/ZINC 28.35 GM OINT TOP ×2 (09:56→20:46)
[2017-07-15] MEDS: COLLAGENASE 30 GM TUBE TOP (09:56)
[2017-07-15] MEDS: FAMOTIDINE 20 MG INJ IV (09:56)
[2017-07-15] MEDS: NYSTATIN 30 GM POWDER BTL TOP ×2 (09:57→20:46)
[2017-07-15] MEDS ORDERED: AMIKACIN 750 MG in DEXTROSE 5% 100 ML IVPB (10:00)
[2017-07-15] MEDS: INSULIN GLARGINE [LANtus] 3 ML PEN SC (10:05)
[2017-07-15] MEDS: POTASSIUM CHLORIDE 250 ML IVPB (11:49)
[2017-07-15] MEDS: FLUCONAZOLE 100 MG/NS (PMX) 50 ML IVPB (11:52)
[2017-07-15] MEDS: AMIKACIN 750 MG in DEXTROSE 5% 100 ML IVPB (14:06)
[2017-07-15] MEDS: FAT EMULSION 20% 250 ML IV (21:12)
[2017-07-16] MEDS: LEVALBUTEROL (HFA) 15 GM INHALER INH ×6 (01:11→21:24)
[2017-07-16] MEDS: IPRATROPIUM (HFA) 12.9 GM INHALER INH ×6 (01:11→21:00)
[2017-07-16] MEDS: INSULIN GLARGINE [LANtus] 3 ML PEN SC ×3 (03:31→21:00)
[2017-07-16] MEDS: INSULIN ASPART [NOVOLOG] 3 ML PEN SC ×6 (03:46→21:00)
[2017-07-16] MEDS: HYDROmorphONE 0.5 MG/0.5 ML SYG IV (03:49)
[2017-07-16 06:37] LABS: ADD MAN DIFF? NO
[2017-07-16 06:48] LABS: BASOPHILS % 0.3 % (0.0-2.0); EOSINOPHILS # 0.1 10^3/ul (0.0-0.5); HEMATOCRIT 22.9 % (42.0-52.0); LYMPHOCYTES # 1.5 10^3/ul (0.8-2.9); LYMPHOCYTES % 18.9 % (15.0-51.0); MEAN CORPUSCULAR HGB CONC 30.6 g/dl (32.0-37.0); MEAN PLATELET VOLUME 12.3 fl (7.4-10.4); MONOCYTE # 0.5 10^3/ul (0.3-0.9); MONOCYTES % 5.9 % (0.0-11.0); NEUTROPHIL # 5.9 10^3/ul (1.6-7.5); NEUTROPHILS % 73.5 % (39.0-77.0); PLATELET COUNT 145 10^3/UL (140-415); RED BLOOD COUNT 2.41 10^6/ul (4.70-6.10); RED CELL DISTRIBUTION WIDTH 16.2 % (11.5-14.5)
[2017-07-16 07:11] LABS: INR 1.22; PROTIME 15.5 Sec (12.2-14.2); PT RATIO 1.2
[2017-07-16 07:23] LABS: ALANINE AMINOTRANSFERASE 104 IU/L (13-69); ALBUMIN 2.2 g/dl (3.3-4.9); ALBUMIN/GLOBULIN RATIO 0.45; ALKALINE PHOSPHATASE 356 IU/L (42-121); ANION GAP 8 (8-16); ASPARTATE AMINO TRANSFERASE 119 IU/L (15-46); BILIRUBIN,INDIRECT 0.5 mg/dl (0-1.1); BILIRUBIN,TOTAL 0.5 mg/dl (0.2-1.3); BLOOD UREA NITROGEN 23 mg/dl (7-20); CALCIUM 7.6 mg/dl (8.4-10.2); CARBON DIOXIDE 27 mmol/L (21-31); CHLORIDE 108 mmol/L (97-110); CREATININE 0.58 mg/dl (0.61-1.24); GLUCOSE 141 mg/dl (70-220); MAGNESIUM 1.8 mg/dl (1.7-2.5); PHOSPHORUS 3.1 mg/dl (2.5-4.9); POTASSIUM 4.1 mmol/L (3.5-5.1); SODIUM 139 mmol/L (135-144)
[2017-07-16] MEDS: COLLAGENASE 30 GM TUBE TOP (09:00)
[2017-07-16] MEDS: LEVETIRACETAM 500 MG (PMX) 100 ML IVPB (10:21)
[2017-07-16] MEDS: FLUCONAZOLE 100 MG/NS (PMX) 50 ML IVPB (10:21)
[2017-07-16] MEDS: FAMOTIDINE 20 MG INJ IV (10:21)
[2017-07-16] MEDS: BACITRACIN 0.5%/ZINC 28.35 GM OINT TOP (10:23)
[2017-07-16] MEDS: NYSTATIN 30 GM POWDER BTL TOP ×2 (15:44→21:02)
[2017-07-16] MEDS: AMIKACIN 750 MG in DEXTROSE 5% 100 ML IVPB (15:44)
[2017-07-17] MEDS: BACITRACIN 0.5%/ZINC 28.35 GM OINT TOP ×3 (00:09→21:30)
[2017-07-17] MEDS: INSULIN ASPART [NOVOLOG] 3 ML PEN SC ×6 (01:00→21:00)
[2017-07-17] MEDS: IPRATROPIUM (HFA) 12.9 GM INHALER INH ×6 (01:28→20:40)
[2017-07-17] MEDS: LEVALBUTEROL (HFA) 15 GM INHALER INH ×6 (01:29→20:40)
[2017-07-17 06:30] LABS: ADD MAN DIFF? NO
[2017-07-17 06:35] LABS: WHITE BLOOD COUNT 9.5 10^3/ul (4.8-10.8)
[2017-07-17 06:35] LABS: BASOPHILS % 0.4 % (0.0-2.0); EOSINOPHILS # 0.2 10^3/ul (0.0-0.5); EOSINOPHILS % 1.7 % (0.0-7.0); HEMATOCRIT 24.6 % (42.0-52.0); HEMOGLOBIN 7.6 g/dl (14.0-18.0); LYMPHOCYTES # 1.8 10^3/ul (0.8-2.9); LYMPHOCYTES % 18.5 % (15.0-51.0); MEAN CORPUSCULAR HEMOGLOBIN 29.5 pg (29.0-33.0); MEAN CORPUSCULAR HGB CONC 30.9 g/dl (32.0-37.0); MEAN CORPUSCULAR VOLUME 95.3 fl (82.0-101.0); MONOCYTE # 0.6 10^3/ul (0.3-0.9); MONOCYTES % 6.5 % (0.0-11.0); NEUTROPHIL # 6.9 10^3/ul (1.6-7.5); NEUTROPHILS % 72.3 % (39.0-77.0); PLATELET COUNT 184 10^3/UL (140-415); RED BLOOD COUNT 2.58 10^6/ul (4.70-6.10); RED CELL DISTRIBUTION WIDTH 16.1 % (11.5-14.5)
[2017-07-17 07:52] LABS: ANION GAP 9 (8-16); BLOOD UREA NITROGEN 15 mg/dl (7-20); CALCIUM 7.8 mg/dl (8.4-10.2); CARBON DIOXIDE 25 mmol/L (21-31); CHLORIDE 106 mmol/L (97-110); CREATININE 0.63 mg/dl (0.61-1.24); GLUCOSE 82 mg/dl (70-220); POTASSIUM 3.9 mmol/L (3.5-5.1); SODIUM 136 mmol/L (135-144)
[2017-07-17] MEDS: NYSTATIN 30 GM POWDER BTL TOP ×2 (09:07→21:30)
[2017-07-17] MEDS: LEVETIRACETAM 500 MG (PMX) 100 ML IVPB (09:07)
[2017-07-17] MEDS: FAMOTIDINE 20 MG INJ IV (09:08)
[2017-07-17] MEDS: INSULIN GLARGINE [LANtus] 3 ML PEN SC ×2 (10:04→21:39)
[2017-07-17] MEDS: FLUCONAZOLE 100 MG/NS (PMX) 50 ML IVPB (10:09)
[2017-07-17] MEDS: COLLAGENASE 30 GM TUBE TOP (15:22)
[2017-07-17] MEDS: AMIKACIN 750 MG in DEXTROSE 5% 100 ML IVPB (15:22)
[2017-07-18] MEDS: IPRATROPIUM (HFA) 12.9 GM INHALER INH ×7 (01:00→21:00)
[2017-07-18] MEDS: INSULIN ASPART [NOVOLOG] 3 ML PEN SC ×6 (01:00→21:00)
[2017-07-18] MEDS: LEVALBUTEROL (HFA) 15 GM INHALER INH ×6 (01:51→21:00)
[2017-07-18 07:40] LABS: ADD MAN DIFF? NO
[2017-07-18 07:41] LABS: WHITE BLOOD COUNT 10.5 10^3/ul (4.8-10.8)
[2017-07-18 07:41] LABS: BASOPHILS % 0.4 % (0.0-2.0); EOSINOPHILS # 0.2 10^3/ul (0.0-0.5); EOSINOPHILS % 1.5 % (0.0-7.0); HEMATOCRIT 26.8 % (42.0-52.0); HEMOGLOBIN 8.3 g/dl (14.0-18.0); LYMPHOCYTES % 18.8 % (15.0-51.0); MEAN CORPUSCULAR HEMOGLOBIN 29.5 pg (29.0-33.0); MEAN CORPUSCULAR VOLUME 95.4 fl (82.0-101.0); MEAN PLATELET VOLUME 12.3 fl (7.4-10.4); MONOCYTE # 0.6 10^3/ul (0.3-0.9); MONOCYTES % 6.1 % (0.0-11.0); NEUTROPHIL # 7.6 10^3/ul (1.6-7.5); NEUTROPHILS % 72.5 % (39.0-77.0); PLATELET COUNT 209 10^3/UL (140-415); RED BLOOD COUNT 2.81 10^6/ul (4.70-6.10); RED CELL DISTRIBUTION WIDTH 16.4 % (11.5-14.5)
[2017-07-18] MEDS: LEVETIRACETAM 500 MG (PMX) 100 ML IVPB (08:52)
[2017-07-18] MEDS: COLLAGENASE 30 GM TUBE TOP (08:52)
[2017-07-18] MEDS: FAMOTIDINE 20 MG INJ IV (08:52)
[2017-07-18] MEDS: BACITRACIN 0.5%/ZINC 28.35 GM OINT TOP ×2 (08:53→21:00)
[2017-07-18] MEDS: NYSTATIN 30 GM POWDER BTL TOP ×2 (08:53→21:00)
[2017-07-18] MEDS: INSULIN GLARGINE [LANtus] 3 ML PEN SC ×2 (08:55→22:03)
[2017-07-18] MEDS ORDERED: AMIKACIN IV PER PHARMACY XX (21:00)
[2017-07-18] MEDS: FAMOTIDINE 20 MG TAB GTB (21:56)
[2017-07-18] MEDS: LEVETIRACETAM 500 MG TAB PO (21:56)
[2017-07-19] MEDS: AMIKACIN 750 MG in DEXTROSE 5% 100 ML IVPB ×2 (00:33→23:09)
[2017-07-19] MEDS: INSULIN ASPART [NOVOLOG] 3 ML PEN SC ×6 (01:00→21:00)
[2017-07-19] MEDS: IPRATROPIUM (HFA) 12.9 GM INHALER INH ×3 (01:00→09:00)
[2017-07-19] MEDS: LEVALBUTEROL (HFA) 15 GM INHALER INH ×3 (02:19→09:00)
[2017-07-19 08:56] LABS: ADD MAN DIFF? NO
[2017-07-19 08:59] LABS: WHITE BLOOD COUNT 9.9 10^3/ul (4.8-10.8)
[2017-07-19 08:59] LABS: BASOPHILS % 0.3 % (0.0-2.0); EOSINOPHILS # 0.2 10^3/ul (0.0-0.5); EOSINOPHILS % 1.6 % (0.0-7.0); HEMATOCRIT 25.3 % (42.0-52.0); HEMOGLOBIN 8.1 g/dl (14.0-18.0); LYMPHOCYTES # 2.1 10^3/ul (0.8-2.9); LYMPHOCYTES % 20.9 % (15.0-51.0); MEAN CORPUSCULAR HEMOGLOBIN 30.7 pg (29.0-33.0); MEAN CORPUSCULAR VOLUME 95.8 fl (82.0-101.0); MEAN PLATELET VOLUME 12.1 fl (7.4-10.4); MONOCYTE # 0.5 10^3/ul (0.3-0.9); MONOCYTES % 5.1 % (0.0-11.0); NEUTROPHIL # 7.1 10^3/ul (1.6-7.5); NEUTROPHILS % 71.6 % (39.0-77.0); PLATELET COUNT 222 10^3/UL (140-415); RED BLOOD COUNT 2.64 10^6/ul (4.70-6.10); RED CELL DISTRIBUTION WIDTH 16.1 % (11.5-14.5)
[2017-07-19 09:24] LABS: ANION GAP 7 (8-16); BLOOD UREA NITROGEN 14 mg/dl (7-20); CALCIUM 7.9 mg/dl (8.4-10.2); CARBON DIOXIDE 28 mmol/L (21-31); CHLORIDE 107 mmol/L (97-110); CREATININE 0.63 mg/dl (0.61-1.24); GLUCOSE 88 mg/dl (70-220); POTASSIUM 3.7 mmol/L (3.5-5.1); SODIUM 138 mmol/L (135-144)
[2017-07-19] MEDS: LEVETIRACETAM 500 MG TAB PO ×2 (09:33→21:41)
[2017-07-19] MEDS: NYSTATIN 30 GM POWDER BTL TOP ×2 (09:33→21:00)
[2017-07-19] MEDS: BACITRACIN 0.5%/ZINC 28.35 GM OINT TOP ×2 (09:34→21:00)
[2017-07-19] MEDS: COLLAGENASE 30 GM TUBE TOP (09:34)
[2017-07-19] MEDS: INSULIN GLARGINE [LANtus] 3 ML PEN SC ×2 (09:36→21:43)
[2017-07-19] MEDS: IPRATROPIUM (NEB) 0.5 MG/2.5 ML AMP HHN ×2 (17:18→21:09)
[2017-07-19] MEDS: LEVALBUTEROL (NEB) 0.63 MG/3 ML AMP HHN ×2 (17:18→21:09)
[2017-07-19] MEDS: FAMOTIDINE 20 MG TAB GTB (21:41)
[2017-07-20] MEDS: INSULIN ASPART [NOVOLOG] 3 ML PEN SC ×6 (01:00→21:00)
[2017-07-20] MEDS: IPRATROPIUM (NEB) 0.5 MG/2.5 ML AMP HHN ×7 (01:44→22:03)
[2017-07-20] MEDS: LEVALBUTEROL (NEB) 0.63 MG/3 ML AMP HHN ×6 (01:44→22:03)
[2017-07-20] MEDS: NYSTATIN 30 GM POWDER BTL TOP ×2 (08:55→21:21)
[2017-07-20] MEDS: COLLAGENASE 30 GM TUBE TOP (08:55)
[2017-07-20] MEDS: BACITRACIN 0.5%/ZINC 28.35 GM OINT TOP ×2 (08:55→21:21)
[2017-07-20] MEDS: LEVETIRACETAM 500 MG TAB PO ×2 (08:55→21:07)
[2017-07-20] MEDS: INSULIN GLARGINE [LANtus] 3 ML PEN SC ×2 (08:57→21:20)
[2017-07-20 16:16] LABS: PROCALCITONIN 0.24 ng/mL (<0.10)
[2017-07-20] MEDS: FAMOTIDINE 20 MG TAB GTB (21:08)
[2017-07-21] MEDS: AMIKACIN 750 MG in DEXTROSE 5% 100 ML IVPB (00:30)
[2017-07-21] MEDS: IPRATROPIUM (NEB) 0.5 MG/2.5 ML AMP HHN ×6 (01:20→20:03)
[2017-07-21] MEDS: LEVALBUTEROL (NEB) 0.63 MG/3 ML AMP HHN ×6 (01:20→20:03)
[2017-07-21] MEDS: INSULIN ASPART [NOVOLOG] 3 ML PEN SC ×5 (02:00→18:00)
[2017-07-21] MEDS: LEVETIRACETAM 500 MG TAB PO ×2 (09:23→21:25)
[2017-07-21] MEDS: COLLAGENASE 30 GM TUBE TOP (09:23)
[2017-07-21] MEDS: NYSTATIN 30 GM POWDER BTL TOP ×2 (09:23→21:30)
[2017-07-21] MEDS: BACITRACIN 0.5%/ZINC 28.35 GM OINT TOP (09:23)
[2017-07-21] MEDS: FAMOTIDINE 20 MG TAB GTB (21:26)
[2017-07-21] MEDS: INSULIN GLARGINE [LANtus] 3 ML PEN SC (21:28)
[2017-07-22] MEDS: AMIKACIN 750 MG in DEXTROSE 5% 100 ML IVPB ×2 (00:24→23:07)
[2017-07-22] MEDS: LEVALBUTEROL (NEB) 0.63 MG/3 ML AMP HHN ×6 (01:12→22:00)
[2017-07-22] MEDS: IPRATROPIUM (NEB) 0.5 MG/2.5 ML AMP HHN ×6 (01:12→21:59)
[2017-07-22] MEDS: INSULIN ASPART [NOVOLOG] 3 ML PEN SC ×5 (05:40→23:54)
[2017-07-22] MEDS: NYSTATIN 30 GM POWDER BTL TOP ×2 (08:48→20:29)
[2017-07-22] MEDS: COLLAGENASE 30 GM TUBE TOP (08:48)
[2017-07-22] MEDS: LEVETIRACETAM 500 MG TAB PO ×2 (08:48→20:28)
[2017-07-22] MEDS: INSULIN GLARGINE [LANtus] 3 ML PEN SC ×2 (08:52→20:31)
[2017-07-22] MEDS: VITAMIN A & D 5 GM OINT PACKET TOP (15:03)
[2017-07-22] MEDS: FAMOTIDINE 20 MG TAB GTB (20:28)
[2017-07-23] MEDS: LEVALBUTEROL (NEB) 0.63 MG/3 ML AMP HHN ×6 (01:29→19:43)
[2017-07-23] MEDS: IPRATROPIUM (NEB) 0.5 MG/2.5 ML AMP HHN ×6 (01:29→19:43)
[2017-07-23] MEDS: INSULIN ASPART [NOVOLOG] 3 ML PEN SC ×4 (06:15→23:49)
[2017-07-23] MEDS: LEVETIRACETAM 500 MG TAB PO ×2 (08:36→21:26)
[2017-07-23] MEDS: COLLAGENASE 30 GM TUBE TOP (08:37)
[2017-07-23] MEDS: NYSTATIN 30 GM POWDER BTL TOP ×2 (08:37→21:26)
[2017-07-23] MEDS: INSULIN GLARGINE [LANtus] 3 ML PEN SC ×2 (08:50→21:35)
[2017-07-23] MEDS: METOCLOPRAMIDE 5 MG TAB PO ×2 (17:00→21:25)
[2017-07-23] MEDS: FAMOTIDINE 20 MG TAB GTB (21:26)
[2017-07-23] MEDS: AMIKACIN 750 MG in DEXTROSE 5% 100 ML IVPB (23:49)
[2017-07-24] MEDS: IPRATROPIUM (NEB) 0.5 MG/2.5 ML AMP HHN ×6 (01:08→20:15)
[2017-07-24] MEDS: LEVALBUTEROL (NEB) 0.63 MG/3 ML AMP HHN ×6 (01:09→20:15)
[2017-07-24 05:46] LABS: AMIKACIN TROUGH <2.5 mg/L (4.0-8.0)
[2017-07-24] MEDS: INSULIN ASPART [NOVOLOG] 3 ML PEN SC ×4 (06:00→23:17)
[2017-07-24 06:29] LABS: ADD MAN DIFF? NO
[2017-07-24 06:33] LABS: WHITE BLOOD COUNT 13.5 10^3/ul (4.8-10.8)
[2017-07-24 06:33] LABS: BASOPHIL # 0.1 10^3/ul (0.0-0.1); BASOPHILS % 0.4 % (0.0-2.0); EOSINOPHILS # 0.1 10^3/ul (0.0-0.5); EOSINOPHILS % 0.6 % (0.0-7.0); HEMATOCRIT 30.5 % (42.0-52.0); HEMOGLOBIN 9.9 g/dl (14.0-18.0); LYMPHOCYTES # 2.5 10^3/ul (0.8-2.9); LYMPHOCYTES % 18.3 % (15.0-51.0); MEAN CORPUSCULAR HEMOGLOBIN 30.4 pg (29.0-33.0); MEAN CORPUSCULAR HGB CONC 32.5 g/dl (32.0-37.0); MEAN CORPUSCULAR VOLUME 93.6 fl (82.0-101.0); MEAN PLATELET VOLUME 11.6 fl (7.4-10.4); MONOCYTE # 0.7 10^3/ul (0.3-0.9); NEUTROPHIL # 10.2 10^3/ul (1.6-7.5); NEUTROPHILS % 75.4 % (39.0-77.0); PLATELET COUNT 325 10^3/UL (140-415); RED BLOOD COUNT 3.26 10^6/ul (4.70-6.10); RED CELL DISTRIBUTION WIDTH 15.3 % (11.5-14.5)
[2017-07-24 06:54] LABS: CREATININE 0.71 mg/dl (0.61-1.24)
[2017-07-24 06:54] LABS: BLOOD UREA NITROGEN 18 mg/dl (7-20)
[2017-07-24] MEDS: METOCLOPRAMIDE 5 MG TAB PO ×4 (08:05→21:03)
[2017-07-24] MEDS: LEVETIRACETAM 500 MG TAB PO ×2 (08:05→21:03)
[2017-07-24] MEDS: COLLAGENASE 30 GM TUBE TOP (09:36)
[2017-07-24] MEDS: NYSTATIN 30 GM POWDER BTL TOP ×2 (09:36→21:04)
[2017-07-24] MEDS: INSULIN GLARGINE [LANtus] 3 ML PEN SC ×2 (14:03→23:23)
[2017-07-24] MEDS: SOD CHLORIDE 0.9% 1,000 ML IV (18:46)
[2017-07-24] MEDS: FAMOTIDINE 20 MG TAB GTB (21:03)
[2017-07-24] MEDS: AMIKACIN 750 MG in DEXTROSE 5% 100 ML IVPB (23:17)
[2017-07-25] MEDS: LEVALBUTEROL (NEB) 0.63 MG/3 ML AMP HHN ×6 (01:00→19:46)
[2017-07-25] MEDS: IPRATROPIUM (NEB) 0.5 MG/2.5 ML AMP HHN ×6 (01:00→19:46)
[2017-07-25] MEDS: SOD CHLORIDE 0.9% 1,000 ML IV ×3 (02:28→18:00)
[2017-07-25] MEDS: INSULIN ASPART [NOVOLOG] 3 ML PEN SC ×4 (06:00→23:46)
[2017-07-25] MEDS: DEXTROSE 50% 50 ML SYRINGE IV (06:13)
[2017-07-25 06:23] LABS: ADD MAN DIFF? NO
[2017-07-25 06:33] LABS: BASOPHILS % 0.3 % (0.0-2.0); EOSINOPHILS # 0.1 10^3/ul (0.0-0.5); EOSINOPHILS % 1.1 % (0.0-7.0); HEMATOCRIT 29.1 % (42.0-52.0); LYMPHOCYTES # 2.3 10^3/ul (0.8-2.9); LYMPHOCYTES % 23.1 % (15.0-51.0); MEAN CORPUSCULAR HEMOGLOBIN 29.7 pg (29.0-33.0); MEAN CORPUSCULAR HGB CONC 30.9 g/dl (32.0-37.0); MEAN PLATELET VOLUME 11.7 fl (7.4-10.4); MONOCYTE # 0.5 10^3/ul (0.3-0.9); MONOCYTES % 5.1 % (0.0-11.0); PLATELET COUNT 270 10^3/UL (140-415); RED BLOOD COUNT 3.03 10^6/ul (4.70-6.10); RED CELL DISTRIBUTION WIDTH 15.3 % (11.5-14.5)
[2017-07-25 07:39] LABS: ALANINE AMINOTRANSFERASE 43 IU/L (13-69); ALBUMIN 2.7 g/dl (3.3-4.9); ALBUMIN/GLOBULIN RATIO 0.48; ALKALINE PHOSPHATASE 200 IU/L (42-121); ANION GAP 10 (8-16); ASPARTATE AMINO TRANSFERASE 42 IU/L (15-46); BILIRUBIN,INDIRECT 0.7 mg/dl (0-1.1); BILIRUBIN,TOTAL 0.7 mg/dl (0.2-1.3); BLOOD UREA NITROGEN 13 mg/dl (7-20); CALCIUM 7.9 mg/dl (8.4-10.2); CARBON DIOXIDE 26 mmol/L (21-31); CHLORIDE 109 mmol/L (97-110); CREATININE 0.63 mg/dl (0.61-1.24); GLUCOSE 74 mg/dl (70-220); SODIUM 142 mmol/L (135-144); TOTAL PROTEIN 8.3 g/dl (6.1-8.1)
[2017-07-25 08:06] LABS: POTASSIUM 2.9 mmol/L (3.5-5.1)
[2017-07-25] MEDS: LEVETIRACETAM 500 MG TAB PO ×2 (09:58→20:39)
[2017-07-25] MEDS: METOCLOPRAMIDE 5 MG TAB PO ×4 (09:58→20:39)
[2017-07-25] MEDS: COLLAGENASE 30 GM TUBE TOP (09:59)
[2017-07-25] MEDS: NYSTATIN 30 GM POWDER BTL TOP ×2 (09:59→20:40)
[2017-07-25] MEDS: POTASSIUM CHLORIDE 250 ML IVPB ×2 (11:48→16:43)
[2017-07-25] MEDS: INSULIN GLARGINE [LANtus] 3 ML PEN SC ×2 (12:00→23:55)
[2017-07-25] MEDS: DEXTROSE 5%-0.45% NACL 1,000 ML IV (15:23)
[2017-07-25] MEDS: FAMOTIDINE 20 MG TAB GTB (20:39)
[2017-07-25] MEDS: ONDANSETRON INJ 8 MG in SOD CHLORIDE 0.9% 50 ML IV (22:21)
[2017-07-26] MEDS: LEVALBUTEROL (NEB) 0.63 MG/3 ML AMP HHN ×6 (00:51→20:13)
[2017-07-26] MEDS: IPRATROPIUM (NEB) 0.5 MG/2.5 ML AMP HHN ×6 (00:51→20:13)
[2017-07-26] MEDS: DEXTROSE 5%-0.45% NACL 1,000 ML IV ×3 (01:00→21:29)
[2017-07-26] MEDS: SOD CHLORIDE 0.9% 1,000 ML IV ×3 (02:00→13:27)
[2017-07-26] MEDS: INSULIN ASPART [NOVOLOG] 3 ML PEN SC ×3 (05:43→17:58)
[2017-07-26 08:30] LABS: ADD MAN DIFF? NO
[2017-07-26] MEDS: LEVETIRACETAM 500 MG TAB PO ×2 (09:29→21:28)
[2017-07-26] MEDS: METOCLOPRAMIDE 5 MG TAB PO ×4 (09:29→21:28)
[2017-07-26] MEDS: NYSTATIN 30 GM POWDER BTL TOP ×2 (09:29→21:28)
[2017-07-26] MEDS: COLLAGENASE 30 GM TUBE TOP (09:30)
[2017-07-26 12:09] LABS: WHITE BLOOD COUNT 13.7 10^3/ul (4.8-10.8)
[2017-07-26 12:09] LABS: BASOPHIL # 0.1 10^3/ul (0.0-0.1); BASOPHILS % 0.4 % (0.0-2.0); EOSINOPHILS # 0.1 10^3/ul (0.0-0.5); HEMATOCRIT 30.9 % (42.0-52.0); HEMOGLOBIN 9.7 g/dl (14.0-18.0); LYMPHOCYTES # 2.7 10^3/ul (0.8-2.9); LYMPHOCYTES % 19.6 % (15.0-51.0); MEAN CORPUSCULAR HEMOGLOBIN 30.2 pg (29.0-33.0); MEAN CORPUSCULAR HGB CONC 31.4 g/dl (32.0-37.0); MEAN CORPUSCULAR VOLUME 96.3 fl (82.0-101.0); MEAN PLATELET VOLUME 10.9 fl (7.4-10.4); MONOCYTE # 0.6 10^3/ul (0.3-0.9); MONOCYTES % 4.5 % (0.0-11.0); NEUTROPHIL # 10.1 10^3/ul (1.6-7.5); NEUTROPHILS % 74.1 % (39.0-77.0); PLATELET COUNT 353 10^3/UL (140-415); RED BLOOD COUNT 3.21 10^6/ul (4.70-6.10); RED CELL DISTRIBUTION WIDTH 14.8 % (11.5-14.5)
[2017-07-26 12:10] LABS: ANION GAP 11 (8-16); BLOOD UREA NITROGEN 7 mg/dl (7-20); CALCIUM 7.9 mg/dl (8.4-10.2); CARBON DIOXIDE 25 mmol/L (21-31); CHLORIDE 108 mmol/L (97-110); CREATININE 0.59 mg/dl (0.61-1.24); GLUCOSE 170 mg/dl (70-220); POTASSIUM 3.1 mmol/L (3.5-5.1); SODIUM 141 mmol/L (135-144)
[2017-07-26 12:23] LABS: PHOSPHORUS 3.2 mg/dl (2.5-4.9)
[2017-07-26 12:23] LABS: MAGNESIUM 1.9 mg/dl (1.7-2.5)
[2017-07-26] MEDS: INSULIN GLARGINE [LANtus] 3 ML PEN SC (13:29)
[2017-07-26] MEDS: POTASSIUM CHLORIDE 250 ML IVPB ×2 (17:11→21:38)
[2017-07-26] MEDS: FAMOTIDINE 20 MG TAB GTB (21:28)
[2017-07-27] MEDS: INSULIN GLARGINE [LANtus] 3 ML PEN SC ×2 (00:40→13:30)
[2017-07-27] MEDS: LEVALBUTEROL (NEB) 0.63 MG/3 ML AMP HHN ×6 (01:22→20:36)
[2017-07-27] MEDS: IPRATROPIUM (NEB) 0.5 MG/2.5 ML AMP HHN ×6 (01:22→20:36)
[2017-07-27] MEDS: DEXTROSE 5%-0.45% NACL 1,000 ML IV ×2 (05:39→14:17)
[2017-07-27] MEDS: INSULIN ASPART [NOVOLOG] 3 ML PEN SC ×4 (05:39→17:44)
[2017-07-27 07:17] LABS: ADD MAN DIFF? NO
[2017-07-27 07:19] LABS: BASOPHILS % 0.3 % (0.0-2.0); EOSINOPHILS # 0.1 10^3/ul (0.0-0.5); EOSINOPHILS % 0.9 % (0.0-7.0); HEMATOCRIT 26.4 % (42.0-52.0); HEMOGLOBIN 8.2 g/dl (14.0-18.0); LYMPHOCYTES # 1.2 10^3/ul (0.8-2.9); LYMPHOCYTES % 17.4 % (15.0-51.0); MEAN CORPUSCULAR HEMOGLOBIN 30.1 pg (29.0-33.0); MEAN CORPUSCULAR HGB CONC 31.1 g/dl (32.0-37.0); MEAN CORPUSCULAR VOLUME 97.1 fl (82.0-101.0); MEAN PLATELET VOLUME 9.9 fl (7.4-10.4); MONOCYTE # 0.4 10^3/ul (0.3-0.9); NEUTROPHILS % 75.1 % (39.0-77.0); PLATELET COUNT 222 10^3/UL (140-415); RED BLOOD COUNT 2.72 10^6/ul (4.70-6.10); RED CELL DISTRIBUTION WIDTH 14.7 % (11.5-14.5)
[2017-07-27 07:19] LABS: WHITE BLOOD COUNT 6.7 10^3/ul (4.8-10.8)
[2017-07-27 07:43] LABS: ANION GAP 7 (8-16); BLOOD UREA NITROGEN 3 mg/dl (7-20); CALCIUM 7.8 mg/dl (8.4-10.2); CARBON DIOXIDE 27 mmol/L (21-31); CHLORIDE 113 mmol/L (97-110); CREATININE 0.58 mg/dl (0.61-1.24); GLUCOSE 123 mg/dl (70-220); SODIUM 143 mmol/L (135-144)
[2017-07-27] MEDS: NYSTATIN 30 GM POWDER BTL TOP ×2 (09:53→21:09)
[2017-07-27] MEDS: LEVETIRACETAM 500 MG TAB PO ×2 (09:53→21:08)
[2017-07-27] MEDS: COLLAGENASE 30 GM TUBE TOP (09:53)
[2017-07-27] MEDS: METOCLOPRAMIDE 5 MG TAB PO ×4 (09:53→21:08)
[2017-07-27] MEDS: FAMOTIDINE 20 MG TAB GTB (21:08)
[2017-07-28] MEDS: LEVALBUTEROL (NEB) 0.63 MG/3 ML AMP HHN ×6 (01:19→20:15)
[2017-07-28] MEDS: IPRATROPIUM (NEB) 0.5 MG/2.5 ML AMP HHN ×6 (01:19→20:15)
[2017-07-28] MEDS: INSULIN GLARGINE [LANtus] 3 ML PEN SC ×2 (02:35→12:32)
[2017-07-28] MEDS: DEXTROSE 5%-0.45% NACL 1,000 ML IV ×3 (02:38→23:00)
[2017-07-28] MEDS: INSULIN ASPART [NOVOLOG] 3 ML PEN SC ×4 (06:25→18:06)
[2017-07-28] MEDS: METOCLOPRAMIDE 5 MG TAB PO ×4 (10:23→20:39)
[2017-07-28] MEDS: LEVETIRACETAM 500 MG TAB PO ×2 (10:24→20:39)
[2017-07-28] MEDS: COLLAGENASE 30 GM TUBE TOP (10:25)
[2017-07-28] MEDS: NYSTATIN 30 GM POWDER BTL TOP ×2 (10:25→20:41)
[2017-07-28 11:45] LABS: ADD MAN DIFF? NO
[2017-07-28 11:53] LABS: WHITE BLOOD COUNT 15.7 10^3/ul (4.8-10.8)
[2017-07-28 11:53] LABS: BASOPHILS % 0.3 % (0.0-2.0); EOSINOPHILS % 0.1 % (0.0-7.0); HEMATOCRIT 33.5 % (42.0-52.0); HEMOGLOBIN 10.7 g/dl (14.0-18.0); LYMPHOCYTES # 1.3 10^3/ul (0.8-2.9); LYMPHOCYTES % 8.1 % (15.0-51.0); MEAN CORPUSCULAR HEMOGLOBIN 29.6 pg (29.0-33.0); MEAN CORPUSCULAR HGB CONC 31.9 g/dl (32.0-37.0); MEAN CORPUSCULAR VOLUME 92.5 fl (82.0-101.0); MEAN PLATELET VOLUME 10.1 fl (7.4-10.4); MONOCYTE # 1.1 10^3/ul (0.3-0.9); MONOCYTES % 7.1 % (0.0-11.0); NEUTROPHIL # 13.2 10^3/ul (1.6-7.5); PLATELET COUNT 349 10^3/UL (140-415); RED BLOOD COUNT 3.62 10^6/ul (4.70-6.10); RED CELL DISTRIBUTION WIDTH 14.7 % (11.5-14.5)
[2017-07-28 12:14] LABS: ANION GAP 14 (8-16); BLOOD UREA NITROGEN 5 mg/dl (7-20); CALCIUM 7.8 mg/dl (8.4-10.2); CARBON DIOXIDE 25 mmol/L (21-31); CHLORIDE 101 mmol/L (97-110); CREATININE 0.66 mg/dl (0.61-1.24); GLUCOSE 195 mg/dl (70-220); POTASSIUM 3.2 mmol/L (3.5-5.1); SODIUM 137 mmol/L (135-144)
[2017-07-28] MEDS ORDERED: AMIKACIN IV PER PHARMACY XX (13:30)
[2017-07-28] MEDS: POTASSIUM CHLORIDE 250 ML IVPB ×2 (14:18→20:36)
[2017-07-28] MEDS: ACETAMINOPHEN 650 MG SUPP PR (14:25)
[2017-07-28 15:12] LABS: LACTIC ACID 2.7 mmol/L (0.5-2.0)
[2017-07-28] MEDS: AMIKACIN 750 MG in DEXTROSE 5% 100 ML IVPB (17:52)
[2017-07-28] MEDS: FAMOTIDINE 20 MG TAB GTB (20:39)
[2017-07-28] MEDS: LINEZOLID 600 MG/D5W (PMX) 300 ML IVPB (20:40)
[2017-07-29] MEDS: INSULIN ASPART [NOVOLOG] 3 ML PEN SC ×4 (00:09→17:38)
[2017-07-29] MEDS: INSULIN GLARGINE [LANtus] 3 ML PEN SC ×2 (00:10→13:43)
[2017-07-29] MEDS: LEVALBUTEROL (NEB) 0.63 MG/3 ML AMP HHN ×6 (01:59→19:50)
[2017-07-29] MEDS: IPRATROPIUM (NEB) 0.5 MG/2.5 ML AMP HHN ×6 (01:59→19:50)
[2017-07-29] MEDS: ONDANSETRON INJ 8 MG in SOD CHLORIDE 0.9% 50 ML IV (05:45)
[2017-07-29] MEDS: DEXTROSE 5%-0.45% NACL 1,000 ML IV ×2 (05:59→18:36)
[2017-07-29] MEDS: ACETAMINOPHEN 650 MG SUPP PR (06:17)
[2017-07-29 08:50] LABS: ADD MAN DIFF? NO
[2017-07-29 08:59] LABS: BASOPHILS % 0.2 % (0.0-2.0); HEMATOCRIT 27.2 % (42.0-52.0); HEMOGLOBIN 8.8 g/dl (14.0-18.0); LYMPHOCYTES # 1.1 10^3/ul (0.8-2.9); LYMPHOCYTES % 7.2 % (15.0-51.0); MEAN CORPUSCULAR HEMOGLOBIN 29.8 pg (29.0-33.0); MEAN CORPUSCULAR HGB CONC 32.4 g/dl (32.0-37.0); MEAN CORPUSCULAR VOLUME 92.2 fl (82.0-101.0); MEAN PLATELET VOLUME 10.7 fl (7.4-10.4); MONOCYTE # 1.1 10^3/ul (0.3-0.9); NEUTROPHIL # 12.8 10^3/ul (1.6-7.5); NEUTROPHILS % 85.1 % (39.0-77.0); PLATELET COUNT 239 10^3/UL (140-415); RED BLOOD COUNT 2.95 10^6/ul (4.70-6.10); RED CELL DISTRIBUTION WIDTH 14.5 % (11.5-14.5)
[2017-07-29] MEDS: LINEZOLID 600 MG/D5W (PMX) 300 ML IVPB ×2 (09:03→21:53)
[2017-07-29] MEDS: METOCLOPRAMIDE 5 MG TAB PO (09:03)
[2017-07-29] MEDS: COLLAGENASE 30 GM TUBE TOP (09:03)
[2017-07-29] MEDS: LEVETIRACETAM 500 MG TAB PO ×2 (09:03→21:53)
[2017-07-29] MEDS: NYSTATIN 30 GM POWDER BTL TOP ×2 (09:03→21:53)
[2017-07-29 09:27] LABS: ANION GAP 10 (8-16); BLOOD UREA NITROGEN 8 mg/dl (7-20); CALCIUM 7.8 mg/dl (8.4-10.2); CARBON DIOXIDE 27 mmol/L (21-31); CHLORIDE 103 mmol/L (97-110); CREATININE 0.59 mg/dl (0.61-1.24); GLUCOSE 159 mg/dl (70-220); POTASSIUM 3.2 mmol/L (3.5-5.1); SODIUM 137 mmol/L (135-144)
[2017-07-29] MEDS: POTASSIUM CHLORIDE 250 ML IVPB ×2 (13:28→18:36)
[2017-07-29] MEDS: ONDANSETRON 4 MG INJ IV (13:28)
[2017-07-29] MEDS ORDERED: ERYTHROMYCIN BASE (EC) 250 MG TAB PO (14:00)
[2017-07-29] MEDS: ERYTHROMYCIN ETHYL SUCC (80 MG/ML PO SYG) GTB ×2 (16:33→22:00)
[2017-07-29] MEDS: METOCLOPRAMIDE 10 MG TAB PO (16:34)
[2017-07-29] MEDS: AMIKACIN 750 MG in DEXTROSE 5% 100 ML IVPB (16:35)
[2017-07-29] MEDS: FAMOTIDINE 20 MG TAB GTB (21:53)
[2017-07-30] MEDS: INSULIN ASPART [NOVOLOG] 3 ML PEN SC ×4 (00:03→17:57)
[2017-07-30] MEDS: INSULIN GLARGINE [LANtus] 3 ML PEN SC ×2 (00:08→11:43)
[2017-07-30] MEDS: METOCLOPRAMIDE 10 MG INJ IV ×4 (00:34→17:41)
[2017-07-30] MEDS: LEVALBUTEROL (NEB) 0.63 MG/3 ML AMP HHN ×6 (01:11→20:14)
[2017-07-30] MEDS: IPRATROPIUM (NEB) 0.5 MG/2.5 ML AMP HHN ×6 (01:11→20:14)
[2017-07-30] MEDS: DEXTROSE 5%-0.45% NACL 1,000 ML IV (05:00)
[2017-07-30] MEDS: ERYTHROMYCIN ETHYL SUCC (80 MG/ML PO SYG) GTB ×3 (06:52→21:19)
[2017-07-30 08:15] LABS: ADD MAN DIFF? NO
[2017-07-30 08:53] LABS: LACTIC ACID 1.5 mmol/L (0.5-2.0)
[2017-07-30 09:03] LABS: ANION GAP 14 (8-16); BLOOD UREA NITROGEN 16 mg/dl (7-20); CALCIUM 7.7 mg/dl (8.4-10.2); CARBON DIOXIDE 21 mmol/L (21-31); CHLORIDE 105 mmol/L (97-110); CREATININE 0.67 mg/dl (0.61-1.24); GLUCOSE 147 mg/dl (70-220); POTASSIUM 4.7 mmol/L (3.5-5.1); SODIUM 135 mmol/L (135-144)
[2017-07-30] MEDS: LEVETIRACETAM 500 MG TAB PO ×2 (09:17→21:19)
[2017-07-30] MEDS: LINEZOLID 600 MG/D5W (PMX) 300 ML IVPB ×2 (09:18→21:19)
[2017-07-30] MEDS: COLLAGENASE 30 GM TUBE TOP (09:19)
[2017-07-30] MEDS: NYSTATIN 30 GM POWDER BTL TOP ×2 (09:19→21:19)
[2017-07-30 09:57] LABS: BASOPHILS % 0.2 % (0.0-2.0); EOSINOPHILS % 0.1 % (0.0-7.0); HEMATOCRIT 27.1 % (42.0-52.0); HEMOGLOBIN 8.4 g/dl (14.0-18.0); LYMPHOCYTES # 2.2 10^3/ul (0.8-2.9); LYMPHOCYTES % 15.4 % (15.0-51.0); MEAN CORPUSCULAR HEMOGLOBIN 29.7 pg (29.0-33.0); MEAN CORPUSCULAR VOLUME 95.8 fl (82.0-101.0); MEAN PLATELET VOLUME 11.1 fl (7.4-10.4); NEUTROPHILS % 76.7 % (39.0-77.0); PLATELET COUNT 232 10^3/UL (140-415); RED BLOOD COUNT 2.83 10^6/ul (4.70-6.10); RED CELL DISTRIBUTION WIDTH 14.6 % (11.5-14.5)
[2017-07-30 09:57] LABS: WHITE BLOOD COUNT 14.4 10^3/ul (4.8-10.8)
[2017-07-30 11:47] LABS: LACTIC ACID 1.9 mmol/L (0.5-2.0)
[2017-07-30] MEDS: AMIKACIN 750 MG in DEXTROSE 5% 100 ML IVPB (14:23)
[2017-07-30 14:43] LABS: ADD UMIC NO; UR ASCORBIC ACID NEGATIVE (NEGATIVE); UR BILIRUBIN (Dip) NEGATIVE (NEGATIVE); UR BLOOD (Dip) NEGATIVE (NEGATIVE); UR CLARITY CLEAR (CLEAR); UR COLOR YELLOW (YELLOW); UR GLUCOSE (Dip) NEGATIVE (NEGATIVE); UR KETONES (Dip) NEGATIVE (NEGATIVE); UR LEUKOCYTE ESTERASE (Dip) NEGATIVE Leu/ul (NEGATIVE); UR NITRITE (Dip) NEGATIVE (NEGATIVE); UR SPECIFIC GRAVITY (Dip) 1.015 (1.003-1.030); UR TOTAL PROTEIN (Dip) NEGATIVE (NEGATIVE); UR UROBILINOGEN (Dip) 2+ mg/dL (NEGATIVE)
[2017-07-30] MEDS: HYDROCODONE/APAP (5/325) TAB PO (16:16)
[2017-07-30] MEDS: SOD CHLORIDE 0.9% 500 ML IV (17:41)
[2017-07-30] MEDS: FAMOTIDINE 20 MG TAB GTB (21:18)
[2017-07-31] MEDS: METOCLOPRAMIDE 10 MG INJ IV ×4 (00:02→18:04)
[2017-07-31] MEDS: INSULIN GLARGINE [LANtus] 3 ML PEN SC ×2 (00:03→12:23)
[2017-07-31] MEDS: INSULIN ASPART [NOVOLOG] 3 ML PEN SC ×4 (00:04→18:21)
[2017-07-31] MEDS: LEVALBUTEROL (NEB) 0.63 MG/3 ML AMP HHN ×6 (00:05→20:16)
[2017-07-31] MEDS: IPRATROPIUM (NEB) 0.5 MG/2.5 ML AMP HHN ×6 (00:05→20:16)
[2017-07-31] MEDS: ERYTHROMYCIN ETHYL SUCC (80 MG/ML PO SYG) GTB ×3 (06:34→22:45)
[2017-07-31 07:28] LABS: ADD MAN DIFF? NO
[2017-07-31 07:33] LABS: BASOPHILS % 0.2 % (0.0-2.0); EOSINOPHILS # 0.1 10^3/ul (0.0-0.5); EOSINOPHILS % 0.6 % (0.0-7.0); HEMATOCRIT 25.4 % (42.0-52.0); HEMOGLOBIN 7.9 g/dl (14.0-18.0); LYMPHOCYTES # 1.4 10^3/ul (0.8-2.9); LYMPHOCYTES % 13.6 % (15.0-51.0); MEAN CORPUSCULAR HEMOGLOBIN 29.3 pg (29.0-33.0); MEAN CORPUSCULAR HGB CONC 31.1 g/dl (32.0-37.0); MEAN CORPUSCULAR VOLUME 94.1 fl (82.0-101.0); MEAN PLATELET VOLUME 11.6 fl (7.4-10.4); MONOCYTE # 0.4 10^3/ul (0.3-0.9); MONOCYTES % 3.8 % (0.0-11.0); NEUTROPHIL # 8.4 10^3/ul (1.6-7.5); NEUTROPHILS % 81.4 % (39.0-77.0); PLATELET COUNT 177 10^3/UL (140-415); RED CELL DISTRIBUTION WIDTH 14.6 % (11.5-14.5)
[2017-07-31 07:33] LABS: WHITE BLOOD COUNT 10.4 10^3/ul (4.8-10.8)
[2017-07-31 07:52] LABS: ANION GAP 13 (8-16); BLOOD UREA NITROGEN 18 mg/dl (7-20); CALCIUM 7.4 mg/dl (8.4-10.2); CARBON DIOXIDE 23 mmol/L (21-31); CHLORIDE 101 mmol/L (97-110); CREATININE 0.66 mg/dl (0.61-1.24); GLUCOSE 117 mg/dl (70-220); MAGNESIUM 1.7 mg/dl (1.7-2.5); PHOSPHORUS 2.9 mg/dl (2.5-4.9); POTASSIUM 3.8 mmol/L (3.5-5.1); SODIUM 133 mmol/L (135-144)
[2017-07-31] MEDS: NYSTATIN 30 GM POWDER BTL TOP ×2 (08:40→20:50)
[2017-07-31] MEDS: COLLAGENASE 30 GM TUBE TOP (08:40)
[2017-07-31] MEDS: LINEZOLID 600 MG/D5W (PMX) 300 ML IVPB ×2 (08:40→20:49)
[2017-07-31] MEDS: LEVETIRACETAM 500 MG TAB PO ×2 (08:40→20:49)
[2017-07-31] MEDS: AMIKACIN 750 MG in DEXTROSE 5% 100 ML IVPB (13:59)
[2017-07-31 14:37] LABS: HEMATOCRIT 23.8 % (42.0-52.0); HEMOGLOBIN 7.7 g/dl (14.0-18.0)
[2017-07-31] MEDS: SOD CHLORIDE 0.9% 250 ML IV* (14:59)
[2017-07-31] MEDS: MEROPENEM 1 GM/50ML(PMX) 50 ML IVPB (20:01)
[2017-07-31] MEDS: FAMOTIDINE 20 MG TAB GTB (20:49)
[2017-07-31] MEDS ORDERED: LIDOCAINE 1% (MPF) 5 ML VIAL SC (23:30)
[2017-08-01] MEDS: INSULIN ASPART [NOVOLOG] 3 ML PEN SC ×4 (00:17→18:23)
[2017-08-01] MEDS: INSULIN GLARGINE [LANtus] 3 ML PEN SC ×2 (00:21→13:36)
[2017-08-01] MEDS: METOCLOPRAMIDE 10 MG INJ IV ×4 (00:22→18:15)
[2017-08-01] MEDS: IPRATROPIUM (NEB) 0.5 MG/2.5 ML AMP HHN ×6 (01:18→20:00)
[2017-08-01] MEDS: LEVALBUTEROL (NEB) 0.63 MG/3 ML AMP HHN ×6 (01:18→20:00)
[2017-08-01] MEDS: ERYTHROMYCIN ETHYL SUCC (80 MG/ML PO SYG) GTB ×3 (05:41→20:51)
[2017-08-01] MEDS: MEROPENEM 1 GM/50ML(PMX) 50 ML IVPB ×2 (08:17→20:52)
[2017-08-01] MEDS: LIDOCAINE 1% (MPF) 5 ML VIAL SC (09:00)
[2017-08-01] MEDS: LEVETIRACETAM 500 MG TAB PO ×2 (09:52→20:51)
[2017-08-01] MEDS: LINEZOLID 600 MG/D5W (PMX) 300 ML IVPB ×2 (09:52→20:52)
[2017-08-01 11:27] LABS: ADD MAN DIFF? NO
[2017-08-01 11:34] LABS: BASOPHILS % 0.2 % (0.0-2.0); EOSINOPHILS # 0.1 10^3/ul (0.0-0.5); EOSINOPHILS % 1.3 % (0.0-7.0); HEMATOCRIT 23.1 % (42.0-52.0); HEMOGLOBIN 7.3 g/dl (14.0-18.0); LYMPHOCYTES # 1.4 10^3/ul (0.8-2.9); LYMPHOCYTES % 15.6 % (15.0-51.0); MEAN CORPUSCULAR HGB CONC 31.6 g/dl (32.0-37.0); MEAN CORPUSCULAR VOLUME 91.7 fl (82.0-101.0); MEAN PLATELET VOLUME 11.2 fl (7.4-10.4); MONOCYTE # 0.4 10^3/ul (0.3-0.9); MONOCYTES % 4.7 % (0.0-11.0); NEUTROPHIL # 6.7 10^3/ul (1.6-7.5); NEUTROPHILS % 77.6 % (39.0-77.0); PLATELET COUNT 182 10^3/UL (140-415); RED BLOOD COUNT 2.52 10^6/ul (4.70-6.10); RED CELL DISTRIBUTION WIDTH 14.4 % (11.5-14.5)
[2017-08-01 11:34] LABS: WHITE BLOOD COUNT 8.7 10^3/ul (4.8-10.8)
[2017-08-01 11:50] LABS: ANION GAP 12 (8-16); BLOOD UREA NITROGEN 11 mg/dl (7-20); CALCIUM 7.5 mg/dl (8.4-10.2); CARBON DIOXIDE 27 mmol/L (21-31); CHLORIDE 96 mmol/L (97-110); CREATININE 0.62 mg/dl (0.61-1.24); GLUCOSE 214 mg/dl (70-220); POTASSIUM 3.1 mmol/L (3.5-5.1); SODIUM 132 mmol/L (135-144)
[2017-08-01] MEDS: NYSTATIN 30 GM POWDER BTL TOP ×2 (13:37→20:53)
[2017-08-01] MEDS: AMIKACIN 750 MG in DEXTROSE 5% 100 ML IVPB (14:25)
[2017-08-01] MEDS: COLLAGENASE 30 GM TUBE TOP (14:25)
[2017-08-01] MEDS: FAMOTIDINE 20 MG TAB GTB (20:51)
[2017-08-02] MEDS: LEVALBUTEROL (NEB) 0.63 MG/3 ML AMP HHN ×6 (01:27→21:18)
[2017-08-02] MEDS: IPRATROPIUM (NEB) 0.5 MG/2.5 ML AMP HHN ×6 (01:27→21:18)
[2017-08-02] MEDS: METOCLOPRAMIDE 10 MG INJ IV ×4 (01:40→17:46)
[2017-08-02] MEDS: INSULIN GLARGINE [LANtus] 3 ML PEN SC ×2 (01:42→12:35)
[2017-08-02] MEDS: INSULIN ASPART [NOVOLOG] 3 ML PEN SC ×4 (01:43→18:13)
[2017-08-02] MEDS: POTASSIUM CHLORIDE 20 MEQ POWDER FOR ORAL SOLN GTB (01:44)
[2017-08-02] MEDS: ERYTHROMYCIN ETHYL SUCC (80 MG/ML PO SYG) GTB ×3 (06:45→22:55)
[2017-08-02 07:27] LABS: ADD MAN DIFF? NO
[2017-08-02 07:29] LABS: BASOPHILS % 0.3 % (0.0-2.0); EOSINOPHILS % 0.6 % (0.0-7.0); HEMATOCRIT 23.7 % (42.0-52.0); HEMOGLOBIN 7.7 g/dl (14.0-18.0); LYMPHOCYTES # 0.7 10^3/ul (0.8-2.9); LYMPHOCYTES % 10.3 % (15.0-51.0); MEAN CORPUSCULAR HEMOGLOBIN 30.1 pg (29.0-33.0); MEAN CORPUSCULAR HGB CONC 32.5 g/dl (32.0-37.0); MEAN CORPUSCULAR VOLUME 92.6 fl (82.0-101.0); MEAN PLATELET VOLUME 12.4 fl (7.4-10.4); MONOCYTE # 0.3 10^3/ul (0.3-0.9); MONOCYTES % 4.4 % (0.0-11.0); NEUTROPHIL # 5.4 10^3/ul (1.6-7.5); NEUTROPHILS % 83.9 % (39.0-77.0); POSITIVE DIFF @See below; RED BLOOD COUNT 2.56 10^6/ul (4.70-6.10); RED CELL DISTRIBUTION WIDTH 14.6 % (11.5-14.5)
[2017-08-02 07:33] LABS: WHITE BLOOD COUNT 6.4 10^3/ul (4.8-10.8)
[2017-08-02 07:33] LABS: PLATELET COUNT 141 10^3/UL (140-415)
[2017-08-02 07:52] LABS: ALANINE AMINOTRANSFERASE 51 IU/L (13-69); ALBUMIN 2.7 g/dl (3.3-4.9); ALBUMIN/GLOBULIN RATIO 0.54; ALKALINE PHOSPHATASE 213 IU/L (42-121); ANION GAP 13 (8-16); ASPARTATE AMINO TRANSFERASE 60 IU/L (15-46); BILIRUBIN,INDIRECT 0.3 mg/dl (0-1.1); BILIRUBIN,TOTAL 0.3 mg/dl (0.2-1.3); BLOOD UREA NITROGEN 12 mg/dl (7-20); CALCIUM 7.8 mg/dl (8.4-10.2); CARBON DIOXIDE 30 mmol/L (21-31); CHLORIDE 97 mmol/L (97-110); CREATININE 0.61 mg/dl (0.61-1.24); GLUCOSE 151 mg/dl (70-220); POTASSIUM 4.2 mmol/L (3.5-5.1); SODIUM 136 mmol/L (135-144); TOTAL PROTEIN 7.7 g/dl (6.1-8.1)
[2017-08-02] MEDS: LINEZOLID 600 MG/D5W (PMX) 300 ML IVPB ×2 (09:00→21:01)
[2017-08-02] MEDS: MEROPENEM 1 GM/50ML(PMX) 50 ML IVPB ×2 (09:28→21:01)
[2017-08-02] MEDS: LEVETIRACETAM 500 MG TAB PO ×2 (09:28→21:26)
[2017-08-02] MEDS: COLLAGENASE 30 GM TUBE TOP (09:29)
[2017-08-02] MEDS: NYSTATIN 30 GM POWDER BTL TOP ×2 (09:29→21:02)
[2017-08-02] MEDS: AMIKACIN 750 MG in DEXTROSE 5% 100 ML IVPB (13:13)
[2017-08-02] MEDS: SOD CHLORIDE 0.9% 1,000 ML IV (16:20)
[2017-08-02 18:58] LABS: HEMATOCRIT 22.2 % (42.0-52.0); HEMOGLOBIN 7.2 g/dl (14.0-18.0)
[2017-08-02] MEDS: FAMOTIDINE 20 MG TAB GTB (21:25)
[2017-08-03] MEDS: METOCLOPRAMIDE 10 MG INJ IV ×4 (00:36→17:40)
[2017-08-03] MEDS: INSULIN ASPART [NOVOLOG] 3 ML PEN SC ×4 (00:37→18:01)
[2017-08-03] MEDS: INSULIN GLARGINE [LANtus] 3 ML PEN SC ×2 (00:40→12:39)
[2017-08-03] MEDS: IPRATROPIUM (NEB) 0.5 MG/2.5 ML AMP HHN ×6 (01:33→20:24)
[2017-08-03] MEDS: LEVALBUTEROL (NEB) 0.63 MG/3 ML AMP HHN ×6 (01:33→20:24)
[2017-08-03] MEDS: SOD CHLORIDE 0.9% 1,000 ML IV ×4 (02:00→21:13)
[2017-08-03] MEDS: ERYTHROMYCIN ETHYL SUCC (80 MG/ML PO SYG) GTB ×3 (05:52→21:13)
[2017-08-03] MEDS: MEROPENEM 1 GM/50ML(PMX) 50 ML IVPB ×2 (09:00→21:12)
[2017-08-03] MEDS: LEVETIRACETAM 500 MG TAB PO ×2 (09:00→21:00)
[2017-08-03] MEDS: LINEZOLID 600 MG/D5W (PMX) 300 ML IVPB ×2 (09:00→21:12)
[2017-08-03] MEDS: NYSTATIN 30 GM POWDER BTL TOP ×2 (09:01→21:13)
[2017-08-03] MEDS: COLLAGENASE 30 GM TUBE TOP (09:01)
[2017-08-03] MEDS: AMIKACIN 750 MG in DEXTROSE 5% 100 ML IVPB (13:47)
[2017-08-03 14:09] LABS: PROCALCITONIN 0.37 ng/mL (<0.10); PROCALCITONIN 0.42 ng/mL (<0.10)
[2017-08-03] MEDS: FAMOTIDINE 20 MG TAB GTB (21:00)
[2017-08-04] MEDS: IPRATROPIUM (NEB) 0.5 MG/2.5 ML AMP HHN ×6 (00:20→20:55)
[2017-08-04] MEDS: LEVALBUTEROL (NEB) 0.63 MG/3 ML AMP HHN ×6 (00:20→20:55)
[2017-08-04] MEDS: METOCLOPRAMIDE 10 MG INJ IV ×4 (00:40→18:02)
[2017-08-04] MEDS: INSULIN GLARGINE [LANtus] 3 ML PEN SC ×2 (00:42→12:32)
[2017-08-04] MEDS: INSULIN ASPART [NOVOLOG] 3 ML PEN SC ×5 (00:43→21:00)
[2017-08-04] MEDS: ERYTHROMYCIN ETHYL SUCC (80 MG/ML PO SYG) GTB ×3 (05:42→21:56)
[2017-08-04] MEDS: LEVETIRACETAM 500 MG TAB PO ×3 (08:01→21:48)
[2017-08-04] MEDS: LINEZOLID 600 MG/D5W (PMX) 300 ML IVPB ×2 (09:00→21:47)
[2017-08-04] MEDS: NYSTATIN 30 GM POWDER BTL TOP ×2 (09:00→21:48)
[2017-08-04] MEDS: COLLAGENASE 30 GM TUBE TOP (09:00)
[2017-08-04] MEDS: SOD CHLORIDE 0.9% 1,000 ML IV (12:00)
[2017-08-04] MEDS: MEROPENEM 1 GM/50ML(PMX) 50 ML IVPB ×2 (12:01→21:47)
[2017-08-04] MEDS: AMIKACIN 750 MG in DEXTROSE 5% 100 ML IVPB (14:02)
[2017-08-04] MEDS: ACETAMINOPHEN 650 MG SUPP PR (21:47)
[2017-08-04] MEDS: FAMOTIDINE 20 MG TAB GTB (21:48)
[2017-08-05] MEDS: METOCLOPRAMIDE 10 MG INJ IV ×4 (00:20→17:49)
[2017-08-05] MEDS: INSULIN GLARGINE [LANtus] 3 ML PEN SC ×2 (00:25→12:00)
[2017-08-05] MEDS: INSULIN ASPART [NOVOLOG] 3 ML PEN SC ×6 (00:26→21:07)
[2017-08-05] MEDS: IPRATROPIUM (NEB) 0.5 MG/2.5 ML AMP HHN ×6 (02:13→20:29)
[2017-08-05] MEDS: LEVALBUTEROL (NEB) 0.63 MG/3 ML AMP HHN ×6 (02:13→20:28)
[2017-08-05] MEDS: HYDROCODONE/APAP (5/325) TAB PO ×2 (04:58→20:39)
[2017-08-05] MEDS: ERYTHROMYCIN ETHYL SUCC (80 MG/ML PO SYG) GTB ×3 (05:00→22:40)
[2017-08-05 06:41] LABS: PLATELET COUNT 180 10^3/UL (140-415)
[2017-08-05 07:20] LABS: ANION GAP 11 (8-16); BLOOD UREA NITROGEN 11 mg/dl (7-20); CALCIUM 7.3 mg/dl (8.4-10.2); CARBON DIOXIDE 29 mmol/L (21-31); CHLORIDE 102 mmol/L (97-110); CREATININE 0.58 mg/dl (0.61-1.24); GLUCOSE 113 mg/dl (70-220); MAGNESIUM 1.9 mg/dl (1.7-2.5); POTASSIUM 3.3 mmol/L (3.5-5.1); SODIUM 139 mmol/L (135-144)
[2017-08-05] MEDS: LINEZOLID 600 MG/D5W (PMX) 300 ML IVPB ×2 (09:32→20:40)
[2017-08-05] MEDS: LEVETIRACETAM 500 MG TAB PO ×2 (09:32→20:39)
[2017-08-05] MEDS: NYSTATIN 30 GM POWDER BTL TOP ×2 (09:35→22:40)
[2017-08-05] MEDS: MEROPENEM 1 GM/50ML(PMX) 50 ML IVPB ×2 (09:35→20:40)
[2017-08-05] MEDS: COLLAGENASE 30 GM TUBE TOP (09:35)
[2017-08-05] MEDS: NA PHOSPHATE/BIPHOS 133 ML ENEMA PR (12:26)
[2017-08-05] MEDS: POTASSIUM CHLORIDE (SR) 20 MEQ TAB PO (13:23)
[2017-08-05] MEDS: AMIKACIN 750 MG in DEXTROSE 5% 100 ML IVPB (14:00)
[2017-08-05 18:26] LABS: AMIKACIN TROUGH <2.5 mg/L (4.0-8.0)
[2017-08-05] MEDS: FAMOTIDINE 20 MG TAB GTB (20:39)
[2017-08-05] MEDS: ACETAMINOPHEN 650 MG SUPP PR (22:40)
[2017-08-06] MEDS: METOCLOPRAMIDE 10 MG INJ IV ×4 (00:50→18:34)
[2017-08-06] MEDS: INSULIN ASPART [NOVOLOG] 3 ML PEN SC ×6 (01:05→21:00)
[2017-08-06] MEDS: INSULIN GLARGINE [LANtus] 3 ML PEN SC ×2 (01:06→12:00)
[2017-08-06] MEDS: IPRATROPIUM (NEB) 0.5 MG/2.5 ML AMP HHN ×6 (01:13→21:01)
[2017-08-06] MEDS: LEVALBUTEROL (NEB) 0.63 MG/3 ML AMP HHN ×6 (01:13→21:01)
[2017-08-06] MEDS: ERYTHROMYCIN ETHYL SUCC (80 MG/ML PO SYG) GTB ×3 (06:21→21:58)
[2017-08-06 07:14] LABS: ALANINE AMINOTRANSFERASE 35 IU/L (13-69); ALBUMIN 2.3 g/dl (3.3-4.9); ALBUMIN/GLOBULIN RATIO 0.46; ALKALINE PHOSPHATASE 154 IU/L (42-121); ANION GAP 9 (8-16); ASPARTATE AMINO TRANSFERASE 21 IU/L (15-46); BILIRUBIN,INDIRECT 0.4 mg/dl (0-1.1); BILIRUBIN,TOTAL 0.4 mg/dl (0.2-1.3); BLOOD UREA NITROGEN 13 mg/dl (7-20); CALCIUM 7.5 mg/dl (8.4-10.2); CARBON DIOXIDE 37 mmol/L (21-31); CHLORIDE 95 mmol/L (97-110); GLUCOSE 73 mg/dl (70-220); SODIUM 138 mmol/L (135-144); TOTAL PROTEIN 7.3 g/dl (6.1-8.1)
[2017-08-06 08:05] LABS: ADD MAN DIFF? NO
[2017-08-06 08:18] LABS: WHITE BLOOD COUNT 10.7 10^3/ul (4.8-10.8)
[2017-08-06 08:18] LABS: ABNORMAL IP MESSAGE 1; BASOPHILS % 0.1 % (0.0-2.0); EOSINOPHILS # 0.1 10^3/ul (0.0-0.5); EOSINOPHILS % 0.5 % (0.0-7.0); HEMATOCRIT 19.2 % (42.0-52.0); LYMPHOCYTES # 2.4 10^3/ul (0.8-2.9); LYMPHOCYTES % 22.1 % (15.0-51.0); MEAN CORPUSCULAR HEMOGLOBIN 29.1 pg (29.0-33.0); MEAN CORPUSCULAR HGB CONC 31.3 g/dl (32.0-37.0); MEAN CORPUSCULAR VOLUME 93.2 fl (82.0-101.0); MEAN PLATELET VOLUME 9.9 fl (7.4-10.4); MONOCYTE # 0.4 10^3/ul (0.3-0.9); MONOCYTES % 3.6 % (0.0-11.0); NEUTROPHIL # 7.8 10^3/ul (1.6-7.5); NEUTROPHILS % 73.2 % (39.0-77.0); PLATELET COUNT 190 10^3/UL (140-415); POSITIVE DIFF @See below; RED BLOOD COUNT 2.06 10^6/ul (4.70-6.10); RED CELL DISTRIBUTION WIDTH 15.3 % (11.5-14.5)
[2017-08-06] MEDS: MEROPENEM 1 GM/50ML(PMX) 50 ML IVPB ×2 (08:39→21:57)
[2017-08-06] MEDS: POTASSIUM CHLORIDE (SR) 20 MEQ TAB PO ×2 (08:40→12:56)
[2017-08-06] MEDS: LEVETIRACETAM 500 MG TAB PO ×2 (08:40→21:57)
[2017-08-06 08:46] LABS: ADD UMIC YES; UR ASCORBIC ACID 40 mg/dL (NEGATIVE); UR BILIRUBIN (Dip) NEGATIVE (NEGATIVE); UR BLOOD (Dip) NEGATIVE (NEGATIVE); UR BUDDING YEAST MODERATE /HPF (NONE SEEN); UR CLARITY SLIGHTLY CLOUDY (CLEAR); UR COLOR YELLOW (YELLOW); UR GLUCOSE (Dip) NEGATIVE (NEGATIVE); UR KETONES (Dip) NEGATIVE (NEGATIVE); UR LEUKOCYTE ESTERASE (Dip) TRACE Leu/ul (NEGATIVE); UR NITRITE (Dip) NEGATIVE (NEGATIVE); UR RBC 5 /HPF (0-5); UR SPECIFIC GRAVITY (Dip) 1.017 (1.003-1.030); UR TOTAL PROTEIN (Dip) NEGATIVE (NEGATIVE); UR UROBILINOGEN (Dip) NEGATIVE (NEGATIVE); UR WBC 40 /HPF (0-5)
[2017-08-06] MEDS: COLLAGENASE 30 GM TUBE TOP (09:00)
[2017-08-06] MEDS: LINEZOLID 600 MG/D5W (PMX) 300 ML IVPB ×2 (09:00→21:57)
[2017-08-06] MEDS: NYSTATIN 30 GM POWDER BTL TOP ×2 (09:00→21:58)
[2017-08-06 12:27] LABS: IMMEDIATE SPIN CROSSMATCH 1 1
[2017-08-06] MEDS: ACETAMINOPHEN 650 MG SUPP PR (13:01)
[2017-08-06] MEDS: HYDROCODONE/APAP (5/325) TAB PO (15:36)
[2017-08-06] MEDS: AMIKACIN 750 MG in DEXTROSE 5% 100 ML IVPB (15:36)
[2017-08-06] MEDS: FAMOTIDINE 20 MG TAB GTB (21:57)
[2017-08-07] MEDS: IPRATROPIUM (NEB) 0.5 MG/2.5 ML AMP HHN ×6 (01:24→20:00)
[2017-08-07] MEDS: LEVALBUTEROL (NEB) 0.63 MG/3 ML AMP HHN ×6 (01:24→20:00)
[2017-08-07] MEDS: INSULIN GLARGINE [LANtus] 3 ML PEN SC ×3 (01:32→11:59)
[2017-08-07] MEDS: INSULIN ASPART [NOVOLOG] 3 ML PEN SC ×4 (01:32→18:00)
[2017-08-07] MEDS: METOCLOPRAMIDE 10 MG INJ IV ×4 (02:13→18:05)
[2017-08-07 06:07] LABS: ADD MAN DIFF? NO
[2017-08-07 06:08] LABS: BASOPHILS % 0.1 % (0.0-2.0); EOSINOPHILS # 0.1 10^3/ul (0.0-0.5); EOSINOPHILS % 0.8 % (0.0-7.0); HEMATOCRIT 22.6 % (42.0-52.0); LYMPHOCYTES # 1.5 10^3/ul (0.8-2.9); LYMPHOCYTES % 19.2 % (15.0-51.0); MEAN CORPUSCULAR HEMOGLOBIN 29.6 pg (29.0-33.0); MEAN CORPUSCULAR HGB CONC 32.3 g/dl (32.0-37.0); MEAN CORPUSCULAR VOLUME 91.5 fl (82.0-101.0); MEAN PLATELET VOLUME 11.5 fl (7.4-10.4); MONOCYTE # 0.3 10^3/ul (0.3-0.9); NEUTROPHIL # 5.9 10^3/ul (1.6-7.5); NEUTROPHILS % 75.5 % (39.0-77.0); PLATELET COUNT 120 10^3/UL (140-415); RED BLOOD COUNT 2.47 10^6/ul (4.70-6.10); RED CELL DISTRIBUTION WIDTH 15.8 % (11.5-14.5)
[2017-08-07 06:08] LABS: WHITE BLOOD COUNT 7.8 10^3/ul (4.8-10.8)
[2017-08-07] MEDS: PANTOPRAZOLE (EC) 40 MG TAB PO (06:33)
[2017-08-07] MEDS: ERYTHROMYCIN ETHYL SUCC (80 MG/ML PO SYG) GTB ×3 (06:33→21:55)
[2017-08-07 06:53] LABS: HEMOGLOBIN 7.3 g/dl (14.0-18.0)
[2017-08-07] MEDS: NYSTATIN 30 GM POWDER BTL TOP ×2 (08:05→21:56)
[2017-08-07] MEDS: LINEZOLID 600 MG/D5W (PMX) 300 ML IVPB (08:05)
[2017-08-07] MEDS: LEVETIRACETAM 500 MG TAB PO ×2 (08:05→21:55)
[2017-08-07] MEDS: COLLAGENASE 30 GM TUBE TOP (08:06)
[2017-08-07] MEDS: MEROPENEM 1 GM/50ML(PMX) 50 ML IVPB ×2 (09:21→22:05)
[2017-08-07] MEDS: AMIKACIN 750 MG in DEXTROSE 5% 100 ML IVPB (14:09)
[2017-08-07] MEDS: FAMOTIDINE 20 MG TAB GTB (21:55)
[2017-08-08] MEDS: METOCLOPRAMIDE 10 MG INJ IV ×4 (00:29→17:29)
[2017-08-08] MEDS: INSULIN GLARGINE [LANtus] 3 ML PEN SC ×2 (00:36→13:50)
[2017-08-08] MEDS: LEVALBUTEROL (NEB) 0.63 MG/3 ML AMP HHN ×6 (00:48→20:49)
[2017-08-08] MEDS: IPRATROPIUM (NEB) 0.5 MG/2.5 ML AMP HHN ×6 (00:48→20:49)
[2017-08-08] MEDS: ACETAMINOPHEN 650 MG SUPP PR (04:47)
[2017-08-08] MEDS: INSULIN ASPART [NOVOLOG] 3 ML PEN SC ×4 (05:56→17:29)
[2017-08-08] MEDS: PANTOPRAZOLE (EC) 40 MG TAB PO (05:56)
[2017-08-08] MEDS: ERYTHROMYCIN ETHYL SUCC (80 MG/ML PO SYG) GTB ×3 (05:56→21:05)
[2017-08-08 06:19] LABS: ADD MAN DIFF? NO
[2017-08-08 06:31] LABS: BASOPHILS % 0.3 % (0.0-2.0); EOSINOPHILS # 0.1 10^3/ul (0.0-0.5); EOSINOPHILS % 0.4 % (0.0-7.0); HEMATOCRIT 24.8 % (42.0-52.0); HEMOGLOBIN 8.4 g/dl (14.0-18.0); LYMPHOCYTES # 2.1 10^3/ul (0.8-2.9); LYMPHOCYTES % 16.8 % (15.0-51.0); MEAN CORPUSCULAR HEMOGLOBIN 30.2 pg (29.0-33.0); MEAN CORPUSCULAR HGB CONC 33.9 g/dl (32.0-37.0); MEAN CORPUSCULAR VOLUME 89.2 fl (82.0-101.0); MONOCYTE # 0.5 10^3/ul (0.3-0.9); MONOCYTES % 3.6 % (0.0-11.0); NEUTROPHIL # 9.9 10^3/ul (1.6-7.5); NEUTROPHILS % 78.3 % (39.0-77.0); PLATELET COUNT 244 10^3/UL (140-415); RED BLOOD COUNT 2.78 10^6/ul (4.70-6.10); RED CELL DISTRIBUTION WIDTH 15.3 % (11.5-14.5)
[2017-08-08 06:31] LABS: WHITE BLOOD COUNT 12.6 10^3/ul (4.8-10.8)
[2017-08-08 06:59] LABS: ANION GAP 14 (8-16); BLOOD UREA NITROGEN 14 mg/dl (7-20); CALCIUM 7.6 mg/dl (8.4-10.2); CARBON DIOXIDE 33 mmol/L (21-31); CHLORIDE 93 mmol/L (97-110); CREATININE 0.68 mg/dl (0.61-1.24); GLUCOSE 95 mg/dl (70-220); POTASSIUM 3.6 mmol/L (3.5-5.1); SODIUM 136 mmol/L (135-144)
[2017-08-08] MEDS: NYSTATIN 30 GM POWDER BTL TOP ×2 (09:31→21:06)
[2017-08-08] MEDS: MEROPENEM 1 GM/50ML(PMX) 50 ML IVPB ×2 (09:31→21:04)
[2017-08-08] MEDS: LEVETIRACETAM 500 MG TAB PO ×2 (09:31→21:04)
[2017-08-08] MEDS: COLLAGENASE 30 GM TUBE TOP (09:33)
[2017-08-08] MEDS: AMIKACIN 750 MG in DEXTROSE 5% 100 ML IVPB (13:50)
[2017-08-08] MEDS: FAMOTIDINE 20 MG TAB GTB (21:04)
[2017-08-08] MEDS: HYDROCODONE/APAP (5/325) TAB PO (21:21)
[2017-08-09] MEDS: IPRATROPIUM (NEB) 0.5 MG/2.5 ML AMP HHN ×6 (01:32→21:00)
[2017-08-09] MEDS: LEVALBUTEROL (NEB) 0.63 MG/3 ML AMP HHN ×6 (01:32→21:01)
[2017-08-09] MEDS: INSULIN ASPART [NOVOLOG] 3 ML PEN SC ×4 (02:00→17:37)
[2017-08-09] MEDS: METOCLOPRAMIDE 10 MG INJ IV ×4 (02:09→17:37)
[2017-08-09] MEDS: INSULIN GLARGINE [LANtus] 3 ML PEN SC ×2 (02:12→12:29)
[2017-08-09] MEDS: ERYTHROMYCIN ETHYL SUCC (80 MG/ML PO SYG) GTB ×3 (06:31→20:56)
[2017-08-09] MEDS: PANTOPRAZOLE (EC) 40 MG TAB PO (06:31)
[2017-08-09 08:03] LABS: ADD MAN DIFF? NO
[2017-08-09 08:09] LABS: WHITE BLOOD COUNT 9.7 10^3/ul (4.8-10.8)
[2017-08-09 08:09] LABS: BASOPHILS % 0.2 % (0.0-2.0); EOSINOPHILS % 0.4 % (0.0-7.0); HEMATOCRIT 22.2 % (42.0-52.0); HEMOGLOBIN 7.3 g/dl (14.0-18.0); LYMPHOCYTES # 1.6 10^3/ul (0.8-2.9); LYMPHOCYTES % 16.5 % (15.0-51.0); MEAN CORPUSCULAR HEMOGLOBIN 29.9 pg (29.0-33.0); MEAN CORPUSCULAR HGB CONC 32.9 g/dl (32.0-37.0); MEAN PLATELET VOLUME 10.3 fl (7.4-10.4); MONOCYTE # 0.5 10^3/ul (0.3-0.9); MONOCYTES % 5.4 % (0.0-11.0); NEUTROPHIL # 7.4 10^3/ul (1.6-7.5); PLATELET COUNT 131 10^3/UL (140-415); RED BLOOD COUNT 2.44 10^6/ul (4.70-6.10); RED CELL DISTRIBUTION WIDTH 15.1 % (11.5-14.5)
[2017-08-09 08:32] LABS: ANION GAP 12 (8-16); BLOOD UREA NITROGEN 15 mg/dl (7-20); CALCIUM 7.3 mg/dl (8.4-10.2); CARBON DIOXIDE 32 mmol/L (21-31); CHLORIDE 96 mmol/L (97-110); GLUCOSE 129 mg/dl (70-220); POTASSIUM 3.3 mmol/L (3.5-5.1); SODIUM 137 mmol/L (135-144)
[2017-08-09 08:33] LABS: PHOSPHORUS 3.1 mg/dl (2.5-4.9)
[2017-08-09 08:33] LABS: MAGNESIUM 2.1 mg/dl (1.7-2.5)
[2017-08-09] MEDS: NYSTATIN 30 GM POWDER BTL TOP ×2 (09:27→20:57)
[2017-08-09] MEDS: MEROPENEM 1 GM/50ML(PMX) 50 ML IVPB ×2 (09:27→20:56)
[2017-08-09] MEDS: LEVETIRACETAM 500 MG TAB PO ×2 (09:27→20:56)
[2017-08-09] MEDS: COLLAGENASE 30 GM TUBE TOP (09:28)
[2017-08-09] MEDS: AMIKACIN 750 MG in DEXTROSE 5% 100 ML IVPB (14:39)
[2017-08-09 14:54] LABS: ADD MAN DIFF? NO
[2017-08-09 15:06] LABS: WHITE BLOOD COUNT 9.5 10^3/ul (4.8-10.8)
[2017-08-09 15:06] LABS: ABNORMAL IP MESSAGE 1; BASOPHILS % 0.3 % (0.0-2.0); EOSINOPHILS # 0.1 10^3/ul (0.0-0.5); EOSINOPHILS % 0.7 % (0.0-7.0); HEMATOCRIT 21.2 % (42.0-52.0); LYMPHOCYTES # 2.5 10^3/ul (0.8-2.9); LYMPHOCYTES % 26.7 % (15.0-51.0); MEAN CORPUSCULAR HEMOGLOBIN 29.4 pg (29.0-33.0); MEAN CORPUSCULAR HGB CONC 32.5 g/dl (32.0-37.0); MEAN CORPUSCULAR VOLUME 90.2 fl (82.0-101.0); MEAN PLATELET VOLUME 11.5 fl (7.4-10.4); MONOCYTE # 0.5 10^3/ul (0.3-0.9); MONOCYTES % 5.7 % (0.0-11.0); NEUTROPHIL # 6.2 10^3/ul (1.6-7.5); NEUTROPHILS % 66.1 % (39.0-77.0); PLATELET COUNT 117 10^3/UL (140-415); POSITIVE DIFF @See below; RED BLOOD COUNT 2.35 10^6/ul (4.70-6.10); RED CELL DISTRIBUTION WIDTH 15.1 % (11.5-14.5)
[2017-08-09 15:10] LABS: HEMOGLOBIN 6.9 g/dl (14.0-18.0)
[2017-08-09] MEDS: POTASSIUM CHLORIDE (SR) 20 MEQ TAB PO (15:17)
[2017-08-09] MEDS: SOD CHLORIDE 0.9% 250 ML IV* (15:17)
[2017-08-09 16:56] LABS: ADD UMIC YES; UR ASCORBIC ACID 40 mg/dL (NEGATIVE); UR BILIRUBIN (Dip) NEGATIVE (NEGATIVE); UR BLOOD (Dip) NEGATIVE (NEGATIVE); UR BUDDING YEAST MANY /HPF (NONE SEEN); UR CLARITY SLIGHTLY CLOUDY (CLEAR); UR COLOR YELLOW (YELLOW); UR GLUCOSE (Dip) NEGATIVE (NEGATIVE); UR KETONES (Dip) NEGATIVE (NEGATIVE); UR LEUKOCYTE ESTERASE (Dip) TRACE Leu/ul (NEGATIVE); UR NITRITE (Dip) NEGATIVE (NEGATIVE); UR RBC 0 /HPF (0-5); UR SPECIFIC GRAVITY (Dip) 1.013 (1.003-1.030); UR TOTAL PROTEIN (Dip) NEGATIVE (NEGATIVE); UR UROBILINOGEN (Dip) 1+ mg/dL (NEGATIVE); UR WBC 9 /HPF (0-5)
[2017-08-09 18:05] LABS: IMMEDIATE SPIN CROSSMATCH 1 2
[2017-08-09] MEDS: FAMOTIDINE 20 MG TAB GTB (20:56)
[2017-08-10] MEDS: LEVALBUTEROL (NEB) 0.63 MG/3 ML AMP HHN ×6 (00:47→21:42)
[2017-08-10] MEDS: IPRATROPIUM (NEB) 0.5 MG/2.5 ML AMP HHN ×6 (00:48→21:42)
[2017-08-10] MEDS: INSULIN ASPART [NOVOLOG] 3 ML PEN SC ×4 (01:00→18:00)
[2017-08-10] MEDS: METOCLOPRAMIDE 10 MG INJ IV ×4 (01:13→18:24)
[2017-08-10] MEDS: HYDROCODONE/APAP (5/325) TAB PO (01:14)
[2017-08-10] MEDS: INSULIN GLARGINE [LANtus] 3 ML PEN SC ×2 (01:19→11:59)
[2017-08-10] MEDS: ERYTHROMYCIN ETHYL SUCC (80 MG/ML PO SYG) GTB ×3 (06:30→21:14)
[2017-08-10] MEDS: PANTOPRAZOLE (EC) 40 MG TAB PO (06:30)
[2017-08-10] MEDS: DEXTROSE 50% 50 ML SYRINGE IV (06:35)
[2017-08-10 06:52] LABS: ADD MAN DIFF? NO
[2017-08-10 06:54] LABS: WHITE BLOOD COUNT 13.3 10^3/ul (4.8-10.8)
[2017-08-10 06:54] LABS: BASOPHIL # 0.1 10^3/ul (0.0-0.1); BASOPHILS % 0.5 % (0.0-2.0); EOSINOPHILS # 0.1 10^3/ul (0.0-0.5); EOSINOPHILS % 0.8 % (0.0-7.0); HEMATOCRIT 31.2 % (42.0-52.0); HEMOGLOBIN 10.4 g/dl (14.0-18.0); LYMPHOCYTES # 3.9 10^3/ul (0.8-2.9); LYMPHOCYTES % 29.3 % (15.0-51.0); MEAN CORPUSCULAR HEMOGLOBIN 29.5 pg (29.0-33.0); MEAN CORPUSCULAR HGB CONC 33.3 g/dl (32.0-37.0); MEAN CORPUSCULAR VOLUME 88.6 fl (82.0-101.0); MEAN PLATELET VOLUME 10.7 fl (7.4-10.4); MONOCYTE # 0.9 10^3/ul (0.3-0.9); NEUTROPHIL # 8.3 10^3/ul (1.6-7.5); NEUTROPHILS % 62.1 % (39.0-77.0); PLATELET COUNT 154 10^3/UL (140-415); RED BLOOD COUNT 3.52 10^6/ul (4.70-6.10)
[2017-08-10 07:26] LABS: ANION GAP 10 (8-16); BLOOD UREA NITROGEN 16 mg/dl (7-20); CALCIUM 7.6 mg/dl (8.4-10.2); CARBON DIOXIDE 31 mmol/L (21-31); CHLORIDE 101 mmol/L (97-110); CREATININE 0.57 mg/dl (0.61-1.24); POTASSIUM 3.5 mmol/L (3.5-5.1); SODIUM 138 mmol/L (135-144)
[2017-08-10 07:30] LABS: GLUCOSE 48 mg/dl (70-220)
[2017-08-10] MEDS: LEVETIRACETAM 500 MG TAB PO ×2 (09:08→21:14)
[2017-08-10] MEDS: MEROPENEM 1 GM/50ML(PMX) 50 ML IVPB ×2 (09:08→21:15)
[2017-08-10] MEDS: NYSTATIN 30 GM POWDER BTL TOP ×2 (09:09→21:15)
[2017-08-10] MEDS: COLLAGENASE 30 GM TUBE TOP (09:09)
[2017-08-10] MEDS: AMIKACIN 750 MG in DEXTROSE 5% 100 ML IVPB (14:43)
[2017-08-10] MEDS: FAMOTIDINE 20 MG TAB GTB (21:14)
[2017-08-11] MEDS: METOCLOPRAMIDE 10 MG INJ IV ×5 (01:05→17:24)
[2017-08-11] MEDS: LEVALBUTEROL (NEB) 0.63 MG/3 ML AMP HHN ×6 (01:27→20:55)
[2017-08-11] MEDS: IPRATROPIUM (NEB) 0.5 MG/2.5 ML AMP HHN ×6 (01:27→20:55)
[2017-08-11] MEDS: ERYTHROMYCIN ETHYL SUCC (80 MG/ML PO SYG) GTB ×3 (05:32→22:04)
[2017-08-11] MEDS: PANTOPRAZOLE (EC) 40 MG TAB PO (05:33)
[2017-08-11] MEDS: INSULIN ASPART [NOVOLOG] 3 ML PEN SC ×4 (06:00→17:24)
[2017-08-11 08:07] LABS: ADD MAN DIFF? NO
[2017-08-11 08:09] LABS: BASOPHIL # 0.1 10^3/ul (0.0-0.1); BASOPHILS % 0.7 % (0.0-2.0); EOSINOPHILS # 0.1 10^3/ul (0.0-0.5); EOSINOPHILS % 0.9 % (0.0-7.0); HEMATOCRIT 32.7 % (42.0-52.0); HEMOGLOBIN 10.9 g/dl (14.0-18.0); LYMPHOCYTES # 1.6 10^3/ul (0.8-2.9); LYMPHOCYTES % 22.6 % (15.0-51.0); MEAN CORPUSCULAR HGB CONC 33.3 g/dl (32.0-37.0); MEAN CORPUSCULAR VOLUME 90.1 fl (82.0-101.0); MEAN PLATELET VOLUME 11.3 fl (7.4-10.4); MONOCYTE # 0.6 10^3/ul (0.3-0.9); MONOCYTES % 8.7 % (0.0-11.0); NEUTROPHIL # 4.7 10^3/ul (1.6-7.5); NEUTROPHILS % 66.5 % (39.0-77.0); PLATELET COUNT 128 10^3/UL (140-415); RED BLOOD COUNT 3.63 10^6/ul (4.70-6.10); RED CELL DISTRIBUTION WIDTH 14.8 % (11.5-14.5)
[2017-08-11 08:31] LABS: ANION GAP 10 (8-16); BLOOD UREA NITROGEN 15 mg/dl (7-20); CALCIUM 7.7 mg/dl (8.4-10.2); CARBON DIOXIDE 32 mmol/L (21-31); CHLORIDE 101 mmol/L (97-110); CREATININE 0.56 mg/dl (0.61-1.24); GLUCOSE 125 mg/dl (70-220); POTASSIUM 3.4 mmol/L (3.5-5.1); SODIUM 140 mmol/L (135-144)
[2017-08-11] MEDS: COLLAGENASE 30 GM TUBE TOP (08:56)
[2017-08-11] MEDS: NYSTATIN 30 GM POWDER BTL TOP ×2 (08:56→22:05)
[2017-08-11] MEDS: LEVETIRACETAM 500 MG TAB PO ×2 (09:25→22:04)
[2017-08-11] MEDS: MEROPENEM 1 GM/50ML(PMX) 50 ML IVPB ×2 (09:26→22:04)
[2017-08-11] MEDS: POTASSIUM CHLORIDE 250 ML IVPB (12:28)
[2017-08-11] MEDS: INSULIN GLARGINE [LANtus] 3 ML PEN SC ×2 (12:42)
[2017-08-11] MEDS: AMIKACIN 750 MG in DEXTROSE 5% 100 ML IVPB (15:03)
[2017-08-11] MEDS: FAMOTIDINE 20 MG TAB GTB (22:04)
[2017-08-12] MEDS: LEVALBUTEROL (NEB) 0.63 MG/3 ML AMP HHN ×6 (00:36→21:01)
[2017-08-12] MEDS: IPRATROPIUM (NEB) 0.5 MG/2.5 ML AMP HHN ×6 (00:36→21:01)
[2017-08-12] MEDS: METOCLOPRAMIDE 10 MG INJ IV ×4 (00:39→17:02)
[2017-08-12] MEDS: INSULIN GLARGINE [LANtus] 3 ML PEN SC ×2 (00:53→12:10)
[2017-08-12] MEDS: INSULIN ASPART [NOVOLOG] 3 ML PEN SC ×4 (06:00→17:01)
[2017-08-12] MEDS: ERYTHROMYCIN ETHYL SUCC (80 MG/ML PO SYG) GTB ×3 (06:05→22:08)
[2017-08-12] MEDS: PANTOPRAZOLE (EC) 40 MG TAB PO (06:05)
[2017-08-12 07:25] LABS: ADD MAN DIFF? NO
[2017-08-12 07:28] LABS: WHITE BLOOD COUNT 7.1 10^3/ul (4.8-10.8)
[2017-08-12 07:28] LABS: BASOPHILS % 0.3 % (0.0-2.0); EOSINOPHILS # 0.1 10^3/ul (0.0-0.5); EOSINOPHILS % 0.7 % (0.0-7.0); HEMATOCRIT 30.9 % (42.0-52.0); HEMOGLOBIN 10.1 g/dl (14.0-18.0); LYMPHOCYTES # 1.9 10^3/ul (0.8-2.9); LYMPHOCYTES % 27.3 % (15.0-51.0); MEAN CORPUSCULAR HEMOGLOBIN 29.8 pg (29.0-33.0); MEAN CORPUSCULAR HGB CONC 32.7 g/dl (32.0-37.0); MEAN CORPUSCULAR VOLUME 91.2 fl (82.0-101.0); MEAN PLATELET VOLUME 10.9 fl (7.4-10.4); MONOCYTE # 0.6 10^3/ul (0.3-0.9); MONOCYTES % 8.5 % (0.0-11.0); NEUTROPHIL # 4.4 10^3/ul (1.6-7.5); NEUTROPHILS % 62.5 % (39.0-77.0); NUCLEATED RED BLOOD CELLS% 0.3 /100WBC (0.0-0.0); PLATELET COUNT 163 10^3/UL (140-415); RED BLOOD COUNT 3.39 10^6/ul (4.70-6.10); RED CELL DISTRIBUTION WIDTH 14.7 % (11.5-14.5)
[2017-08-12 07:52] LABS: ANION GAP 10 (8-16); BLOOD UREA NITROGEN 15 mg/dl (7-20); CALCIUM 7.8 mg/dl (8.4-10.2); CARBON DIOXIDE 30 mmol/L (21-31); CHLORIDE 104 mmol/L (97-110); CREATININE 0.55 mg/dl (0.61-1.24); GLUCOSE 110 mg/dl (70-220); POTASSIUM 3.6 mmol/L (3.5-5.1); SODIUM 140 mmol/L (135-144)
[2017-08-12] MEDS: COLLAGENASE 30 GM TUBE TOP (08:40)
[2017-08-12] MEDS: NYSTATIN 30 GM POWDER BTL TOP ×2 (08:40→20:47)
[2017-08-12] MEDS: MEROPENEM 1 GM/50ML(PMX) 50 ML IVPB (09:32)
[2017-08-12] MEDS: LEVETIRACETAM 500 MG TAB PO ×2 (09:32→20:47)
[2017-08-12] MEDS: AMIKACIN 750 MG in DEXTROSE 5% 100 ML IVPB (13:49)
[2017-08-12] MEDS: FAMOTIDINE 20 MG TAB GTB (20:45)
[2017-08-13] MEDS: LEVALBUTEROL (NEB) 0.63 MG/3 ML AMP HHN ×6 (01:05→21:39)
[2017-08-13] MEDS: IPRATROPIUM (NEB) 0.5 MG/2.5 ML AMP HHN ×6 (01:05→21:40)
[2017-08-13] MEDS: PANTOPRAZOLE (EC) 40 MG TAB PO (05:36)
[2017-08-13] MEDS: METOCLOPRAMIDE 10 MG INJ IV ×4 (05:37→18:19)
[2017-08-13] MEDS: INSULIN ASPART [NOVOLOG] 3 ML PEN SC ×4 (05:38→18:00)
[2017-08-13 06:45] LABS: ADD MAN DIFF? NO
[2017-08-13 06:59] LABS: BASOPHILS % 0.4 % (0.0-2.0); EOSINOPHILS # 0.1 10^3/ul (0.0-0.5); EOSINOPHILS % 0.6 % (0.0-7.0); HEMATOCRIT 31.6 % (42.0-52.0); HEMOGLOBIN 10.2 g/dl (14.0-18.0); LYMPHOCYTES # 1.9 10^3/ul (0.8-2.9); LYMPHOCYTES % 24.2 % (15.0-51.0); MEAN CORPUSCULAR HEMOGLOBIN 29.5 pg (29.0-33.0); MEAN CORPUSCULAR HGB CONC 32.3 g/dl (32.0-37.0); MEAN CORPUSCULAR VOLUME 91.3 fl (82.0-101.0); MEAN PLATELET VOLUME 10.7 fl (7.4-10.4); MONOCYTE # 0.6 10^3/ul (0.3-0.9); MONOCYTES % 7.2 % (0.0-11.0); NEUTROPHIL # 5.3 10^3/ul (1.6-7.5); PLATELET COUNT 194 10^3/UL (140-415); RED BLOOD COUNT 3.46 10^6/ul (4.70-6.10)
[2017-08-13 06:59] LABS: WHITE BLOOD COUNT 7.9 10^3/ul (4.8-10.8)
[2017-08-13] MEDS: ERYTHROMYCIN ETHYL SUCC (80 MG/ML PO SYG) GTB ×3 (07:10→22:31)
[2017-08-13 07:31] LABS: ANION GAP 8 (8-16); BLOOD UREA NITROGEN 16 mg/dl (7-20); CALCIUM 7.5 mg/dl (8.4-10.2); CARBON DIOXIDE 31 mmol/L (21-31); CHLORIDE 103 mmol/L (97-110); CREATININE 0.54 mg/dl (0.61-1.24); GLUCOSE 136 mg/dl (70-220); POTASSIUM 3.4 mmol/L (3.5-5.1); SODIUM 139 mmol/L (135-144)
[2017-08-13] MEDS: NYSTATIN 30 GM POWDER BTL TOP ×2 (09:22→22:32)
[2017-08-13] MEDS: COLLAGENASE 30 GM TUBE TOP (09:22)
[2017-08-13] MEDS: LEVETIRACETAM 500 MG TAB PO ×2 (09:23→22:31)
[2017-08-13] MEDS: VITAMIN A & D 5 GM OINT PACKET TOP (10:36)
[2017-08-13] MEDS: INSULIN GLARGINE [LANtus] 3 ML PEN SC ×2 (12:32)
[2017-08-13] MEDS: FAMOTIDINE 20 MG TAB GTB (22:31)
[2017-08-14] MEDS: METOCLOPRAMIDE 10 MG INJ IV ×4 (00:34→18:10)
[2017-08-14] MEDS: INSULIN GLARGINE [LANtus] 3 ML PEN SC ×2 (00:48→12:11)
[2017-08-14] MEDS: LEVALBUTEROL (NEB) 0.63 MG/3 ML AMP HHN ×6 (02:11→20:45)
[2017-08-14] MEDS: IPRATROPIUM (NEB) 0.5 MG/2.5 ML AMP HHN ×6 (02:11→20:45)
[2017-08-14] MEDS: INSULIN ASPART [NOVOLOG] 3 ML PEN SC ×4 (05:32→18:00)
[2017-08-14] MEDS: PANTOPRAZOLE (EC) 40 MG TAB PO (05:32)
[2017-08-14] MEDS: ERYTHROMYCIN ETHYL SUCC (80 MG/ML PO SYG) GTB ×3 (05:32→21:49)
[2017-08-14] MEDS: LEVETIRACETAM 500 MG TAB PO ×2 (09:00→20:42)
[2017-08-14] MEDS: NYSTATIN 30 GM POWDER BTL TOP ×2 (09:00→20:43)
[2017-08-14] MEDS: COLLAGENASE 30 GM TUBE TOP (09:00)
[2017-08-14] MEDS: FAMOTIDINE 20 MG TAB GTB (20:42)
[2017-08-15] MEDS: METOCLOPRAMIDE 10 MG INJ IV ×4 (00:36→17:34)
[2017-08-15] MEDS: INSULIN GLARGINE [LANtus] 3 ML PEN SC ×2 (00:53→11:24)
[2017-08-15] MEDS: LEVALBUTEROL (NEB) 0.63 MG/3 ML AMP HHN ×6 (01:09→21:20)
[2017-08-15] MEDS: IPRATROPIUM (NEB) 0.5 MG/2.5 ML AMP HHN ×6 (01:09→21:20)
[2017-08-15] MEDS: PANTOPRAZOLE (EC) 40 MG TAB PO (05:35)
[2017-08-15] MEDS: ERYTHROMYCIN ETHYL SUCC (80 MG/ML PO SYG) GTB ×3 (05:39→21:18)
[2017-08-15] MEDS: INSULIN ASPART [NOVOLOG] 3 ML PEN SC ×4 (06:00→17:02)
[2017-08-15 06:22] LABS: ADD MAN DIFF? NO
[2017-08-15 06:47] LABS: BASOPHILS % 0.4 % (0.0-2.0); EOSINOPHILS % 0.4 % (0.0-7.0); HEMOGLOBIN 10.5 g/dl (14.0-18.0); LYMPHOCYTES # 1.8 10^3/ul (0.8-2.9); LYMPHOCYTES % 17.2 % (15.0-51.0); MEAN CORPUSCULAR HEMOGLOBIN 29.6 pg (29.0-33.0); MEAN CORPUSCULAR HGB CONC 31.8 g/dl (32.0-37.0); MEAN PLATELET VOLUME 10.9 fl (7.4-10.4); MONOCYTE # 0.5 10^3/ul (0.3-0.9); MONOCYTES % 4.9 % (0.0-11.0); NEUTROPHIL # 8.2 10^3/ul (1.6-7.5); NEUTROPHILS % 76.5 % (39.0-77.0); PLATELET COUNT 224 10^3/UL (140-415); RED BLOOD COUNT 3.55 10^6/ul (4.70-6.10); RED CELL DISTRIBUTION WIDTH 15.1 % (11.5-14.5)
[2017-08-15 06:47] LABS: WHITE BLOOD COUNT 10.7 10^3/ul (4.8-10.8)
[2017-08-15 07:05] LABS: ANION GAP 10 (8-16); BLOOD UREA NITROGEN 14 mg/dl (7-20); CALCIUM 7.6 mg/dl (8.4-10.2); CARBON DIOXIDE 31 mmol/L (21-31); CHLORIDE 101 mmol/L (97-110); CREATININE 0.51 mg/dl (0.61-1.24); GLUCOSE 159 mg/dl (70-220); SODIUM 139 mmol/L (135-144)
[2017-08-15 07:09] LABS: POTASSIUM 2.9 mmol/L (3.5-5.1)
[2017-08-15] MEDS: NYSTATIN 30 GM POWDER BTL TOP ×2 (08:30→21:17)
[2017-08-15] MEDS: LEVETIRACETAM 500 MG TAB PO ×2 (08:30→21:17)
[2017-08-15] MEDS: COLLAGENASE 30 GM TUBE TOP (08:31)
[2017-08-15 10:11] LABS: PROCALCITONIN 0.14 ng/mL (<0.10)
[2017-08-15] MEDS: POTASSIUM CHLORIDE 20 MEQ POWDER FOR ORAL SOLN JT ×2 (11:06→17:34)
[2017-08-15 18:54] LABS: MAGNESIUM 1.9 mg/dl (1.7-2.5)
[2017-08-15] MEDS ORDERED: LORAZEPAM 2 MG INJ IV (19:00)
[2017-08-15] MEDS: FAMOTIDINE 20 MG TAB GTB (21:17)
[2017-08-16] MEDS: METOCLOPRAMIDE 10 MG INJ IV ×4 (00:52→18:01)
[2017-08-16] MEDS: INSULIN GLARGINE [LANtus] 3 ML PEN SC ×2 (01:02→11:54)
[2017-08-16] MEDS: LEVALBUTEROL (NEB) 0.63 MG/3 ML AMP HHN ×6 (01:47→21:45)
[2017-08-16] MEDS: IPRATROPIUM (NEB) 0.5 MG/2.5 ML AMP HHN ×6 (01:47→21:44)
[2017-08-16] MEDS: INSULIN ASPART [NOVOLOG] 3 ML PEN SC ×4 (06:00→18:00)
[2017-08-16 06:21] LABS: ADD MAN DIFF? NO
[2017-08-16 06:38] LABS: WHITE BLOOD COUNT 7.5 10^3/ul (4.8-10.8)
[2017-08-16 06:38] LABS: BASOPHILS % 0.4 % (0.0-2.0); EOSINOPHILS # 0.1 10^3/ul (0.0-0.5); EOSINOPHILS % 0.9 % (0.0-7.0); HEMATOCRIT 30.1 % (42.0-52.0); HEMOGLOBIN 9.6 g/dl (14.0-18.0); LYMPHOCYTES # 1.7 10^3/ul (0.8-2.9); LYMPHOCYTES % 22.3 % (15.0-51.0); MEAN CORPUSCULAR HEMOGLOBIN 29.4 pg (29.0-33.0); MEAN CORPUSCULAR HGB CONC 31.9 g/dl (32.0-37.0); MEAN CORPUSCULAR VOLUME 92.3 fl (82.0-101.0); MEAN PLATELET VOLUME 10.5 fl (7.4-10.4); MONOCYTE # 0.5 10^3/ul (0.3-0.9); MONOCYTES % 6.1 % (0.0-11.0); NEUTROPHIL # 5.3 10^3/ul (1.6-7.5); NEUTROPHILS % 69.9 % (39.0-77.0); PLATELET COUNT 261 10^3/UL (140-415); RED BLOOD COUNT 3.26 10^6/ul (4.70-6.10)
[2017-08-16 06:46] LABS: ANION GAP 9 (8-16); BLOOD UREA NITROGEN 14 mg/dl (7-20); CALCIUM 7.7 mg/dl (8.4-10.2); CARBON DIOXIDE 31 mmol/L (21-31); CHLORIDE 105 mmol/L (97-110); CREATININE 0.49 mg/dl (0.61-1.24); GLUCOSE 105 mg/dl (70-220); POTASSIUM 3.2 mmol/L (3.5-5.1); SODIUM 142 mmol/L (135-144)
[2017-08-16] MEDS: PANTOPRAZOLE (EC) 40 MG TAB PO (06:52)
[2017-08-16] MEDS: ERYTHROMYCIN ETHYL SUCC (80 MG/ML PO SYG) GTB ×3 (06:52→21:23)
[2017-08-16] MEDS: NYSTATIN 30 GM POWDER BTL TOP ×2 (08:17→21:23)
[2017-08-16] MEDS: COLLAGENASE 30 GM TUBE TOP (08:17)
[2017-08-16] MEDS: LEVETIRACETAM 500 MG TAB PO ×2 (08:17→21:22)
[2017-08-16] MEDS: POTASSIUM CHLORIDE (SR) 20 MEQ TAB PO (09:08)
[2017-08-16] MEDS: POTASSIUM CHLORIDE 20 MEQ POWDER FOR ORAL SOLN JT (11:51)
[2017-08-16] MEDS: ACETAMINOPHEN 650MG/20.3ML CUP GTB (12:44)
[2017-08-16] MEDS: FAMOTIDINE 20 MG TAB GTB (21:22)
[2017-08-17] MEDS: IPRATROPIUM (NEB) 0.5 MG/2.5 ML AMP HHN ×5 (01:37→21:33)
[2017-08-17] MEDS: METOCLOPRAMIDE 10 MG INJ IV ×5 (01:37→21:27)
[2017-08-17] MEDS: LEVALBUTEROL (NEB) 0.63 MG/3 ML AMP HHN ×5 (01:54→21:32)
[2017-08-17] MEDS: INSULIN GLARGINE [LANtus] 3 ML PEN SC ×3 (02:09→21:27)
[2017-08-17] MEDS: INSULIN ASPART [NOVOLOG] 3 ML PEN SC ×5 (02:09→21:27)
[2017-08-17] MEDS: ERYTHROMYCIN ETHYL SUCC (80 MG/ML PO SYG) GTB ×3 (05:44→21:30)
[2017-08-17] MEDS: PANTOPRAZOLE (EC) 40 MG TAB PO (05:44)
[2017-08-17 08:32] LABS: ADD MAN DIFF? NO
[2017-08-17 08:52] LABS: WHITE BLOOD COUNT 7.6 10^3/ul (4.8-10.8)
[2017-08-17 08:52] LABS: BASOPHILS % 0.4 % (0.0-2.0); EOSINOPHILS # 0.1 10^3/ul (0.0-0.5); EOSINOPHILS % 1.1 % (0.0-7.0); HEMATOCRIT 30.8 % (42.0-52.0); HEMOGLOBIN 9.8 g/dl (14.0-18.0); LYMPHOCYTES # 1.6 10^3/ul (0.8-2.9); LYMPHOCYTES % 21.2 % (15.0-51.0); MEAN CORPUSCULAR HEMOGLOBIN 29.9 pg (29.0-33.0); MEAN CORPUSCULAR HGB CONC 31.8 g/dl (32.0-37.0); MEAN CORPUSCULAR VOLUME 93.9 fl (82.0-101.0); MEAN PLATELET VOLUME 10.8 fl (7.4-10.4); MONOCYTE # 0.5 10^3/ul (0.3-0.9); MONOCYTES % 6.4 % (0.0-11.0); NEUTROPHIL # 5.3 10^3/ul (1.6-7.5); NEUTROPHILS % 70.4 % (39.0-77.0); PLATELET COUNT 276 10^3/UL (140-415); RED BLOOD COUNT 3.28 10^6/ul (4.70-6.10); RED CELL DISTRIBUTION WIDTH 15.2 % (11.5-14.5)
[2017-08-17 08:57] LABS: ANION GAP 9 (8-16); BLOOD UREA NITROGEN 16 mg/dl (7-20); CALCIUM 7.7 mg/dl (8.4-10.2); CARBON DIOXIDE 30 mmol/L (21-31); CHLORIDE 105 mmol/L (97-110); CREATININE 0.51 mg/dl (0.61-1.24); GLUCOSE 106 mg/dl (70-220); POTASSIUM 3.3 mmol/L (3.5-5.1); SODIUM 141 mmol/L (135-144)
[2017-08-17 08:58] LABS: MAGNESIUM 1.8 mg/dl (1.7-2.5)
[2017-08-17] MEDS: LEVETIRACETAM 500 MG TAB PO ×2 (09:42→21:26)
[2017-08-17] MEDS: COLLAGENASE 30 GM TUBE TOP (09:44)
[2017-08-17] MEDS: NYSTATIN 30 GM POWDER BTL TOP ×2 (09:45→21:27)
[2017-08-17] MEDS ORDERED: POTASSIUM CHLORIDE (SR) 20 MEQ TAB PO (10:44)
[2017-08-17] MEDS: POTASSIUM CHLORIDE 20 MEQ POWDER FOR ORAL SOLN PO (12:22)
[2017-08-17] MEDS: FAMOTIDINE 20 MG TAB GTB (21:26)
[2017-08-18] MEDS: LEVALBUTEROL (NEB) 0.63 MG/3 ML AMP HHN ×4 (01:35→20:16)
[2017-08-18] MEDS: IPRATROPIUM (NEB) 0.5 MG/2.5 ML AMP HHN ×4 (01:35→20:17)
[2017-08-18] MEDS: INSULIN ASPART [NOVOLOG] 3 ML PEN SC ×3 (05:49→18:00)
[2017-08-18] MEDS: METOCLOPRAMIDE 10 MG INJ IV ×3 (05:49→18:21)
[2017-08-18] MEDS: PANTOPRAZOLE (EC) 40 MG TAB PO (05:49)
[2017-08-18] MEDS: ERYTHROMYCIN ETHYL SUCC (80 MG/ML PO SYG) GTB ×3 (05:49→21:25)
[2017-08-18 09:20] LABS: ADD MAN DIFF? NO
[2017-08-18] MEDS: NYSTATIN 30 GM POWDER BTL TOP ×2 (09:22→21:25)
[2017-08-18] MEDS: LEVETIRACETAM 500 MG TAB PO ×2 (09:22→21:25)
[2017-08-18] MEDS: COLLAGENASE 30 GM TUBE TOP (09:22)
[2017-08-18 09:23] LABS: WHITE BLOOD COUNT 7.8 10^3/ul (4.8-10.8)
[2017-08-18 09:23] LABS: BASOPHILS % 0.4 % (0.0-2.0); EOSINOPHILS # 0.1 10^3/ul (0.0-0.5); EOSINOPHILS % 0.8 % (0.0-7.0); HEMATOCRIT 33.3 % (42.0-52.0); HEMOGLOBIN 10.3 g/dl (14.0-18.0); LYMPHOCYTES # 1.6 10^3/ul (0.8-2.9); MEAN CORPUSCULAR HEMOGLOBIN 28.9 pg (29.0-33.0); MEAN CORPUSCULAR HGB CONC 30.9 g/dl (32.0-37.0); MEAN CORPUSCULAR VOLUME 93.3 fl (82.0-101.0); MEAN PLATELET VOLUME 12.2 fl (7.4-10.4); MONOCYTE # 0.4 10^3/ul (0.3-0.9); MONOCYTES % 5.6 % (0.0-11.0); NEUTROPHIL # 5.7 10^3/ul (1.6-7.5); NEUTROPHILS % 72.8 % (39.0-77.0); PLATELET COUNT 219 10^3/UL (140-415); RED BLOOD COUNT 3.57 10^6/ul (4.70-6.10); RED CELL DISTRIBUTION WIDTH 15.4 % (11.5-14.5)
[2017-08-18 09:46] LABS: ANION GAP 10 (8-16); BLOOD UREA NITROGEN 14 mg/dl (7-20); CALCIUM 7.6 mg/dl (8.4-10.2); CARBON DIOXIDE 28 mmol/L (21-31); CHLORIDE 104 mmol/L (97-110); CREATININE 0.51 mg/dl (0.61-1.24); GLUCOSE 121 mg/dl (70-220); POTASSIUM 3.5 mmol/L (3.5-5.1); SODIUM 138 mmol/L (135-144)
[2017-08-18 10:18] LABS: MAGNESIUM 1.9 mg/dl (1.7-2.5)
[2017-08-18] MEDS: INSULIN GLARGINE [LANtus] 3 ML PEN SC (13:06)
[2017-08-18] MEDS: FAMOTIDINE 20 MG TAB GTB (21:25)
[2017-08-19] MEDS: METOCLOPRAMIDE 10 MG INJ IV ×4 (01:23→17:36)
[2017-08-19] MEDS: IPRATROPIUM (NEB) 0.5 MG/2.5 ML AMP HHN ×4 (01:32→20:00)
[2017-08-19] MEDS: LEVALBUTEROL (NEB) 0.63 MG/3 ML AMP HHN ×4 (01:32→20:00)
[2017-08-19] MEDS: INSULIN GLARGINE [LANtus] 3 ML PEN SC ×2 (01:45→11:50)
[2017-08-19] MEDS: INSULIN ASPART [NOVOLOG] 3 ML PEN SC ×4 (01:46→17:38)
[2017-08-19] MEDS: ERYTHROMYCIN ETHYL SUCC (80 MG/ML PO SYG) GTB ×3 (06:23→22:16)
[2017-08-19] MEDS: PANTOPRAZOLE (EC) 40 MG TAB PO (06:24)
[2017-08-19 08:13] LABS: ADD MAN DIFF? NO
[2017-08-19 08:21] LABS: BASOPHILS % 0.3 % (0.0-2.0); EOSINOPHILS % 0.4 % (0.0-7.0); HEMATOCRIT 30.8 % (42.0-52.0); HEMOGLOBIN 9.8 g/dl (14.0-18.0); LYMPHOCYTES # 1.8 10^3/ul (0.8-2.9); LYMPHOCYTES % 16.4 % (15.0-51.0); MEAN CORPUSCULAR HEMOGLOBIN 29.5 pg (29.0-33.0); MEAN CORPUSCULAR HGB CONC 31.8 g/dl (32.0-37.0); MEAN CORPUSCULAR VOLUME 92.8 fl (82.0-101.0); MEAN PLATELET VOLUME 10.7 fl (7.4-10.4); MONOCYTE # 0.5 10^3/ul (0.3-0.9); MONOCYTES % 4.6 % (0.0-11.0); NEUTROPHIL # 8.6 10^3/ul (1.6-7.5); NEUTROPHILS % 77.9 % (39.0-77.0); PLATELET COUNT 339 10^3/UL (140-415); RED BLOOD COUNT 3.32 10^6/ul (4.70-6.10); RED CELL DISTRIBUTION WIDTH 15.5 % (11.5-14.5)
[2017-08-19 08:54] LABS: MAGNESIUM 1.9 mg/dl (1.7-2.5)
[2017-08-19 09:03] LABS: ANION GAP 11 (8-16); BLOOD UREA NITROGEN 14 mg/dl (7-20); CALCIUM 7.8 mg/dl (8.4-10.2); CARBON DIOXIDE 28 mmol/L (21-31); CHLORIDE 106 mmol/L (97-110); CREATININE 0.53 mg/dl (0.61-1.24); GLUCOSE 138 mg/dl (70-220); POTASSIUM 3.2 mmol/L (3.5-5.1); SODIUM 142 mmol/L (135-144)
[2017-08-19] MEDS: NYSTATIN 30 GM POWDER BTL TOP ×2 (09:27→22:17)
[2017-08-19] MEDS: COLLAGENASE 30 GM TUBE TOP (09:27)
[2017-08-19] MEDS: LEVETIRACETAM 500 MG TAB PO ×2 (09:27→22:16)
[2017-08-19] MEDS: POTASSIUM CHLORIDE (SR) 20 MEQ TAB PO (14:15)
[2017-08-19] MEDS: MAGNESIUM OXIDE 400 MG TAB PO (14:15)
[2017-08-19] MEDS: FAMOTIDINE 20 MG TAB GTB (22:16)
[2017-08-20] MEDS: INSULIN ASPART [NOVOLOG] 3 ML PEN SC ×5 (01:00→23:54)
[2017-08-20] MEDS: METOCLOPRAMIDE 10 MG INJ IV ×4 (01:09→17:59)
[2017-08-20] MEDS: INSULIN GLARGINE [LANtus] 3 ML PEN SC ×2 (01:22→12:44)
[2017-08-20] MEDS: LEVALBUTEROL (NEB) 0.63 MG/3 ML AMP HHN ×4 (01:45→19:45)
[2017-08-20] MEDS: IPRATROPIUM (NEB) 0.5 MG/2.5 ML AMP HHN ×4 (01:46→19:44)
[2017-08-20] MEDS: ERYTHROMYCIN ETHYL SUCC (80 MG/ML PO SYG) GTB ×3 (06:01→21:27)
[2017-08-20] MEDS: PANTOPRAZOLE (EC) 40 MG TAB PO (06:02)
[2017-08-20 07:09] LABS: ANION GAP 11 (8-16); BLOOD UREA NITROGEN 14 mg/dl (7-20); CARBON DIOXIDE 28 mmol/L (21-31); CHLORIDE 105 mmol/L (97-110); CREATININE 0.52 mg/dl (0.61-1.24); GLUCOSE 118 mg/dl (70-220); POTASSIUM 3.8 mmol/L (3.5-5.1); SODIUM 140 mmol/L (135-144)
[2017-08-20] MEDS: LEVETIRACETAM 500 MG TAB PO ×2 (08:18→21:26)
[2017-08-20] MEDS: NYSTATIN 30 GM POWDER BTL TOP ×2 (08:19→21:27)
[2017-08-20] MEDS: COLLAGENASE 30 GM TUBE TOP (08:19)
[2017-08-20] MEDS: FAMOTIDINE 20 MG TAB GTB (21:26)
[2017-08-21] MEDS: METOCLOPRAMIDE 10 MG INJ IV ×5 (00:03→23:26)
[2017-08-21] MEDS: INSULIN GLARGINE [LANtus] 3 ML PEN SC ×3 (00:08→23:32)
[2017-08-21] MEDS: IPRATROPIUM (NEB) 0.5 MG/2.5 ML AMP HHN ×4 (01:29→19:59)
[2017-08-21] MEDS: LEVALBUTEROL (NEB) 0.63 MG/3 ML AMP HHN ×4 (01:29→19:58)
[2017-08-21] MEDS: PANTOPRAZOLE (EC) 40 MG TAB PO (05:24)
[2017-08-21] MEDS: ERYTHROMYCIN ETHYL SUCC (80 MG/ML PO SYG) GTB ×3 (05:27→23:25)
[2017-08-21] MEDS: INSULIN ASPART [NOVOLOG] 3 ML PEN SC ×4 (06:00→23:28)
[2017-08-21 07:31] LABS: ADD MAN DIFF? NO
[2017-08-21 07:36] LABS: BASOPHILS % 0.3 % (0.0-2.0); EOSINOPHILS # 0.1 10^3/ul (0.0-0.5); EOSINOPHILS % 0.8 % (0.0-7.0); HEMATOCRIT 32.1 % (42.0-52.0); LYMPHOCYTES # 2.3 10^3/ul (0.8-2.9); LYMPHOCYTES % 22.7 % (15.0-51.0); MEAN CORPUSCULAR HEMOGLOBIN 29.4 pg (29.0-33.0); MEAN CORPUSCULAR HGB CONC 31.2 g/dl (32.0-37.0); MEAN CORPUSCULAR VOLUME 94.4 fl (82.0-101.0); MEAN PLATELET VOLUME 10.4 fl (7.4-10.4); MONOCYTE # 0.7 10^3/ul (0.3-0.9); MONOCYTES % 7.3 % (0.0-11.0); NEUTROPHIL # 6.8 10^3/ul (1.6-7.5); NEUTROPHILS % 68.4 % (39.0-77.0); PLATELET COUNT 324 10^3/UL (140-415); RED CELL DISTRIBUTION WIDTH 15.9 % (11.5-14.5)
[2017-08-21 08:07] LABS: LACTIC ACID 1.7 mmol/L (0.5-2.0)
[2017-08-21 08:15] LABS: ANION GAP 12 (8-16); BLOOD UREA NITROGEN 13 mg/dl (7-20); CALCIUM 8.1 mg/dl (8.4-10.2); CARBON DIOXIDE 30 mmol/L (21-31); CHLORIDE 105 mmol/L (97-110); CREATININE 0.55 mg/dl (0.61-1.24); GLUCOSE 119 mg/dl (70-220); POTASSIUM 3.5 mmol/L (3.5-5.1); SODIUM 143 mmol/L (135-144)
[2017-08-21] MEDS: LEVETIRACETAM 500 MG TAB PO ×3 (08:36→20:29)
[2017-08-21] MEDS: NYSTATIN 30 GM POWDER BTL TOP ×3 (08:37→20:29)
[2017-08-21] MEDS: COLLAGENASE 30 GM TUBE TOP ×2 (08:37→09:20)
[2017-08-21] MEDS: FAMOTIDINE 20 MG TAB GTB (20:28)
[2017-08-22] MEDS: IPRATROPIUM (NEB) 0.5 MG/2.5 ML AMP HHN ×4 (01:32→19:41)
[2017-08-22] MEDS: LEVALBUTEROL (NEB) 0.63 MG/3 ML AMP HHN ×4 (01:32→19:41)
[2017-08-22] MEDS: PANTOPRAZOLE (EC) 40 MG TAB PO (05:46)
[2017-08-22] MEDS: ERYTHROMYCIN ETHYL SUCC (80 MG/ML PO SYG) GTB ×3 (05:46→22:32)
[2017-08-22] MEDS: METOCLOPRAMIDE 10 MG INJ IV ×3 (05:46→18:02)
[2017-08-22] MEDS: INSULIN ASPART [NOVOLOG] 3 ML PEN SC ×3 (05:48→18:00)
[2017-08-22 08:19] LABS: ANION GAP 13 (8-16); BLOOD UREA NITROGEN 15 mg/dl (7-20); CARBON DIOXIDE 27 mmol/L (21-31); CHLORIDE 105 mmol/L (97-110); CREATININE 0.52 mg/dl (0.61-1.24); GLUCOSE 139 mg/dl (70-220); MAGNESIUM 1.9 mg/dl (1.7-2.5); POTASSIUM 3.3 mmol/L (3.5-5.1); SODIUM 142 mmol/L (135-144)
[2017-08-22] MEDS: NYSTATIN 30 GM POWDER BTL TOP ×2 (08:24→20:44)
[2017-08-22] MEDS: COLLAGENASE 30 GM TUBE TOP (08:25)
[2017-08-22] MEDS: LEVETIRACETAM 500 MG TAB PO ×2 (08:26→20:43)
[2017-08-22] MEDS: INSULIN GLARGINE [LANtus] 3 ML PEN SC (12:11)
[2017-08-22] MEDS: FAMOTIDINE 20 MG TAB GTB (20:43)
[2017-08-23] MEDS: INSULIN GLARGINE [LANtus] 3 ML PEN SC ×3 (00:37→23:30)
[2017-08-23] MEDS: METOCLOPRAMIDE 10 MG INJ IV ×4 (00:37→18:56)
[2017-08-23] MEDS: IPRATROPIUM (NEB) 0.5 MG/2.5 ML AMP HHN ×4 (00:59→20:23)
[2017-08-23] MEDS: LEVALBUTEROL (NEB) 0.63 MG/3 ML AMP HHN ×4 (01:00→20:23)
[2017-08-23] MEDS: ERYTHROMYCIN ETHYL SUCC (80 MG/ML PO SYG) GTB ×3 (05:13→21:00)
[2017-08-23] MEDS: PANTOPRAZOLE (EC) 40 MG TAB PO (05:14)
[2017-08-23] MEDS: INSULIN ASPART [NOVOLOG] 3 ML PEN SC ×5 (05:18→23:30)
[2017-08-23] MEDS: LEVETIRACETAM 500 MG TAB PO ×2 (09:27→20:59)
[2017-08-23] MEDS: COLLAGENASE 30 GM TUBE TOP (09:28)
[2017-08-23] MEDS: NYSTATIN 30 GM POWDER BTL TOP ×2 (09:28→21:00)
[2017-08-23 15:33] LABS: ADD MAN DIFF? NO
[2017-08-23 15:38] LABS: WHITE BLOOD COUNT 8.8 10^3/ul (4.8-10.8)
[2017-08-23 15:38] LABS: BASOPHILS % 0.2 % (0.0-2.0); EOSINOPHILS # 0.1 10^3/ul (0.0-0.5); EOSINOPHILS % 1.1 % (0.0-7.0); HEMATOCRIT 31.8 % (42.0-52.0); HEMOGLOBIN 10.2 g/dl (14.0-18.0); LYMPHOCYTES # 2.1 10^3/ul (0.8-2.9); LYMPHOCYTES % 23.5 % (15.0-51.0); MEAN CORPUSCULAR HEMOGLOBIN 29.7 pg (29.0-33.0); MEAN CORPUSCULAR HGB CONC 32.1 g/dl (32.0-37.0); MEAN CORPUSCULAR VOLUME 92.7 fl (82.0-101.0); MEAN PLATELET VOLUME 10.4 fl (7.4-10.4); MONOCYTE # 0.7 10^3/ul (0.3-0.9); NEUTROPHIL # 5.9 10^3/ul (1.6-7.5); NEUTROPHILS % 66.7 % (39.0-77.0); PLATELET COUNT 290 10^3/UL (140-415); RED BLOOD COUNT 3.43 10^6/ul (4.70-6.10); RED CELL DISTRIBUTION WIDTH 16.1 % (11.5-14.5)
[2017-08-23 15:58] LABS: ANION GAP 11 (8-16); BLOOD UREA NITROGEN 16 mg/dl (7-20); CALCIUM 7.8 mg/dl (8.4-10.2); CARBON DIOXIDE 28 mmol/L (21-31); CHLORIDE 105 mmol/L (97-110); CREATININE 0.51 mg/dl (0.61-1.24); GLUCOSE 134 mg/dl (70-220); SODIUM 141 mmol/L (135-144)
[2017-08-23 16:05] LABS: POTASSIUM 2.8 mmol/L (3.5-5.1)
[2017-08-23] MEDS: POTASSIUM CHLORIDE 20 MEQ POWDER FOR ORAL SOLN GTB (18:56)
[2017-08-23] MEDS: POTASSIUM CHLORIDE 50 ML IVPB ×4 (18:56→23:28)
[2017-08-23] MEDS: FAMOTIDINE 20 MG TAB GTB (20:59)
[2017-08-24] MEDS: IPRATROPIUM (NEB) 0.5 MG/2.5 ML AMP HHN ×4 (01:50→19:38)
[2017-08-24] MEDS: LEVALBUTEROL (NEB) 0.63 MG/3 ML AMP HHN ×4 (01:50→19:38)
[2017-08-24] MEDS: METOCLOPRAMIDE 10 MG INJ IV ×4 (01:55→18:17)
[2017-08-24] MEDS: INSULIN ASPART [NOVOLOG] 3 ML PEN SC ×3 (06:00→18:00)
[2017-08-24] MEDS: ERYTHROMYCIN ETHYL SUCC (80 MG/ML PO SYG) GTB ×3 (06:01→21:16)
[2017-08-24] MEDS: PANTOPRAZOLE (EC) 40 MG TAB PO (06:01)
[2017-08-24] MEDS: LEVETIRACETAM 500 MG TAB PO (10:22)
[2017-08-24] MEDS: NYSTATIN 30 GM POWDER BTL TOP ×2 (10:22→21:17)
[2017-08-24 11:02] LABS: ADD MAN DIFF? NO
[2017-08-24 11:04] LABS: BASOPHILS % 0.3 % (0.0-2.0); EOSINOPHILS # 0.1 10^3/ul (0.0-0.5); EOSINOPHILS % 0.9 % (0.0-7.0); HEMATOCRIT 29.1 % (42.0-52.0); HEMOGLOBIN 9.4 g/dl (14.0-18.0); LYMPHOCYTES # 2.2 10^3/ul (0.8-2.9); MEAN CORPUSCULAR HEMOGLOBIN 29.8 pg (29.0-33.0); MEAN CORPUSCULAR HGB CONC 32.3 g/dl (32.0-37.0); MEAN CORPUSCULAR VOLUME 92.4 fl (82.0-101.0); MEAN PLATELET VOLUME 10.6 fl (7.4-10.4); MONOCYTE # 0.7 10^3/ul (0.3-0.9); MONOCYTES % 6.4 % (0.0-11.0); NEUTROPHIL # 7.3 10^3/ul (1.6-7.5); NEUTROPHILS % 71.1 % (39.0-77.0); PLATELET COUNT 274 10^3/UL (140-415); RED BLOOD COUNT 3.15 10^6/ul (4.70-6.10); RED CELL DISTRIBUTION WIDTH 16.2 % (11.5-14.5)
[2017-08-24 11:04] LABS: WHITE BLOOD COUNT 10.3 10^3/ul (4.8-10.8)
[2017-08-24 11:23] LABS: ANION GAP 11 (8-16); BLOOD UREA NITROGEN 17 mg/dl (7-20); CALCIUM 7.8 mg/dl (8.4-10.2); CARBON DIOXIDE 27 mmol/L (21-31); CHLORIDE 106 mmol/L (97-110); CREATININE 0.49 mg/dl (0.61-1.24); GLUCOSE 120 mg/dl (70-220); POTASSIUM 3.7 mmol/L (3.5-5.1); SODIUM 140 mmol/L (135-144)
[2017-08-24] MEDS: INSULIN GLARGINE [LANtus] 3 ML PEN SC (13:00)
[2017-08-24] MEDS: COLLAGENASE 30 GM TUBE TOP (13:00)
[2017-08-24] MEDS: FAMOTIDINE 20 MG TAB GTB (21:16)
[2017-08-24] MEDS: LEVETIRACETAM (100 MG/ML) 5ML CUP GTB (21:16)
[2017-08-25] MEDS: METOCLOPRAMIDE 10 MG INJ IV ×4 (00:24→14:01)
[2017-08-25] MEDS: INSULIN GLARGINE [LANtus] 3 ML PEN SC ×2 (00:32→13:53)
[2017-08-25] MEDS: LEVALBUTEROL (NEB) 0.63 MG/3 ML AMP HHN ×4 (00:51→20:18)
[2017-08-25] MEDS: IPRATROPIUM (NEB) 0.5 MG/2.5 ML AMP HHN ×4 (00:52→20:18)
[2017-08-25] MEDS: ERYTHROMYCIN ETHYL SUCC (80 MG/ML PO SYG) GTB ×3 (05:43→22:15)
[2017-08-25] MEDS: PANTOPRAZOLE (EC) 40 MG TAB PO (05:44)
[2017-08-25] MEDS: INSULIN ASPART [NOVOLOG] 3 ML PEN SC ×4 (05:45→21:11)
[2017-08-25 08:24] LABS: ADD MAN DIFF? NO
[2017-08-25 08:28] LABS: BASOPHILS % 0.4 % (0.0-2.0); EOSINOPHILS # 0.1 10^3/ul (0.0-0.5); EOSINOPHILS % 0.9 % (0.0-7.0); HEMATOCRIT 32.3 % (42.0-52.0); HEMOGLOBIN 10.3 g/dl (14.0-18.0); LYMPHOCYTES # 1.7 10^3/ul (0.8-2.9); LYMPHOCYTES % 22.8 % (15.0-51.0); MEAN CORPUSCULAR HEMOGLOBIN 29.6 pg (29.0-33.0); MEAN CORPUSCULAR HGB CONC 31.9 g/dl (32.0-37.0); MEAN CORPUSCULAR VOLUME 92.8 fl (82.0-101.0); MEAN PLATELET VOLUME 10.5 fl (7.4-10.4); MONOCYTE # 0.5 10^3/ul (0.3-0.9); NEUTROPHIL # 5.2 10^3/ul (1.6-7.5); NEUTROPHILS % 68.5 % (39.0-77.0); PLATELET COUNT 257 10^3/UL (140-415); RED BLOOD COUNT 3.48 10^6/ul (4.70-6.10)
[2017-08-25 08:28] LABS: WHITE BLOOD COUNT 7.6 10^3/ul (4.8-10.8)
[2017-08-25 08:55] LABS: ANION GAP 13 (8-16); BLOOD UREA NITROGEN 15 mg/dl (7-20); CALCIUM 8.2 mg/dl (8.4-10.2); CARBON DIOXIDE 28 mmol/L (21-31); CHLORIDE 106 mmol/L (97-110); CREATININE 0.56 mg/dl (0.61-1.24); GLUCOSE 155 mg/dl (70-220); POTASSIUM 3.6 mmol/L (3.5-5.1); SODIUM 143 mmol/L (135-144)
[2017-08-25] MEDS: LEVETIRACETAM (100 MG/ML) 5ML CUP GTB ×2 (10:02→20:57)
[2017-08-25] MEDS: NYSTATIN 30 GM POWDER BTL TOP ×2 (10:02→20:57)
[2017-08-25] MEDS: COLLAGENASE 30 GM TUBE TOP (10:03)
[2017-08-25 20:37] LABS: PROCALCITONIN 0.12 ng/mL (<0.10)
[2017-08-25] MEDS: FAMOTIDINE 20 MG TAB GTB (20:57)
[2017-08-26] MEDS: METOCLOPRAMIDE 10 MG INJ IV ×5 (00:25→23:51)
[2017-08-26] MEDS: INSULIN GLARGINE [LANtus] 3 ML PEN SC ×3 (00:27→23:55)
[2017-08-26] MEDS: IPRATROPIUM (NEB) 0.5 MG/2.5 ML AMP HHN ×4 (01:27→20:03)
[2017-08-26] MEDS: LEVALBUTEROL (NEB) 0.63 MG/3 ML AMP HHN ×4 (01:27→20:03)
[2017-08-26] MEDS: ERYTHROMYCIN ETHYL SUCC (80 MG/ML PO SYG) GTB ×3 (05:34→23:08)
[2017-08-26] MEDS: INSULIN ASPART [NOVOLOG] 3 ML PEN SC ×5 (05:34→23:53)
[2017-08-26] MEDS: PANTOPRAZOLE (EC) 40 MG TAB PO (05:34)
[2017-08-26 07:09] LABS: ANION GAP 11 (8-16); BLOOD UREA NITROGEN 14 mg/dl (7-20); CALCIUM 7.8 mg/dl (8.4-10.2); CARBON DIOXIDE 27 mmol/L (21-31); CHLORIDE 107 mmol/L (97-110); CREATININE 0.54 mg/dl (0.61-1.24); GLUCOSE 149 mg/dl (70-220); POTASSIUM 3.3 mmol/L (3.5-5.1); SODIUM 142 mmol/L (135-144)
[2017-08-26] MEDS: NYSTATIN 30 GM POWDER BTL TOP ×2 (09:27→20:40)
[2017-08-26] MEDS: LEVETIRACETAM (100 MG/ML) 5ML CUP GTB ×2 (09:28→20:40)
[2017-08-26] MEDS: COLLAGENASE 30 GM TUBE TOP (09:28)
[2017-08-26] MEDS: POTASSIUM CHLORIDE 50 ML IVPB ×2 (11:13→12:42)
[2017-08-26] MEDS: FAMOTIDINE 20 MG TAB GTB (20:40)
[2017-08-27] MEDS: IPRATROPIUM (NEB) 0.5 MG/2.5 ML AMP HHN ×4 (01:54→21:56)
[2017-08-27] MEDS: LEVALBUTEROL (NEB) 0.63 MG/3 ML AMP HHN ×4 (01:54→21:56)
[2017-08-27] MEDS: ERYTHROMYCIN ETHYL SUCC (80 MG/ML PO SYG) GTB ×3 (05:26→22:38)
[2017-08-27] MEDS: PANTOPRAZOLE (EC) 40 MG TAB PO (05:26)
[2017-08-27] MEDS: METOCLOPRAMIDE 10 MG INJ IV ×3 (05:26→18:00)
[2017-08-27] MEDS: INSULIN ASPART [NOVOLOG] 3 ML PEN SC ×3 (05:28→18:00)
[2017-08-27 06:11] LABS: ADD MAN DIFF? NO
[2017-08-27 06:47] LABS: WHITE BLOOD COUNT 9.7 10^3/ul (4.8-10.8)
[2017-08-27 06:47] LABS: BASOPHILS % 0.4 % (0.0-2.0); EOSINOPHILS # 0.1 10^3/ul (0.0-0.5); HEMATOCRIT 34.1 % (42.0-52.0); HEMOGLOBIN 10.6 g/dl (14.0-18.0); LYMPHOCYTES % 20.2 % (15.0-51.0); MEAN CORPUSCULAR HEMOGLOBIN 29.9 pg (29.0-33.0); MEAN CORPUSCULAR HGB CONC 31.1 g/dl (32.0-37.0); MEAN CORPUSCULAR VOLUME 96.1 fl (82.0-101.0); MEAN PLATELET VOLUME 12.3 fl (7.4-10.4); MONOCYTE # 0.7 10^3/ul (0.3-0.9); MONOCYTES % 6.7 % (0.0-11.0); NEUTROPHIL # 6.9 10^3/ul (1.6-7.5); NEUTROPHILS % 71.3 % (39.0-77.0); POSITIVE DIFF @See below; RED BLOOD COUNT 3.55 10^6/ul (4.70-6.10); RED CELL DISTRIBUTION WIDTH 15.9 % (11.5-14.5)
[2017-08-27 07:13] LABS: ANION GAP 12 (8-16); BLOOD UREA NITROGEN 18 mg/dl (7-20); CARBON DIOXIDE 26 mmol/L (21-31); CHLORIDE 108 mmol/L (97-110); CREATININE 0.51 mg/dl (0.61-1.24); GLUCOSE 127 mg/dl (70-220); POTASSIUM 4.5 mmol/L (3.5-5.1); SODIUM 141 mmol/L (135-144)
[2017-08-27 07:25] LABS: PLATELET COUNT 151 10^3/UL (140-415)
[2017-08-27] MEDS: COLLAGENASE 30 GM TUBE TOP (09:40)
[2017-08-27] MEDS: NYSTATIN 30 GM POWDER BTL TOP ×2 (09:40→20:50)
[2017-08-27] MEDS: LEVETIRACETAM (100 MG/ML) 5ML CUP GTB ×2 (09:40→20:50)
[2017-08-27 09:56] LABS: ANISOCYTOSIS 1+ (0-0); BAND NEUTROPHILS #M 0.4 10^3/ul (0.0-0.6); BAND NEUTROPHILS % (M) 5 % (0-4); BASOPHILS % (M) 1 % (0-2); EOSINOPHILS % (M) 2 % (0-7); GIANT THROMBO% (M) 1 % (0-0); LYMPHOCYTES #M 1.4 10^3/ul (0.8-2.9); LYMPHOCYTES % (M) 15 % (15-51); MONOCYTE #M 0.5 10^3/ul (0.3-0.9); MONOCYTES % (M) 6 % (0-11); MYELOCYTES % (M) 1 % (0-0); PLATELET ESTIMATE NORMAL; POLYCHROMASIA 3+ (0-0); REACTIVE LYMPHOCYTES #M 0.2 10^3/ul (0.0-0.0); REACTIVE LYMPHOCYTES% (M) 3 % (0-0); SEG NEUT #M 6.6 10^3/ul (1.7-7.5); SEGMENTED NEUTROPHILS (M) % 68 % (39-77); SMUDGE%M 7 % (0-0)
[2017-08-27] MEDS: INSULIN GLARGINE [LANtus] 3 ML PEN SC (13:07)
[2017-08-27] MEDS: FAMOTIDINE 20 MG TAB GTB (20:50)
[2017-08-28] MEDS: METOCLOPRAMIDE 10 MG INJ IV ×5 (00:19→23:24)
[2017-08-28] MEDS: INSULIN GLARGINE [LANtus] 3 ML PEN SC ×3 (00:30→23:31)
[2017-08-28] MEDS: LEVALBUTEROL (NEB) 0.63 MG/3 ML AMP HHN ×4 (02:27→20:01)
[2017-08-28] MEDS: IPRATROPIUM (NEB) 0.5 MG/2.5 ML AMP HHN ×4 (02:27→20:01)
[2017-08-28] MEDS: ERYTHROMYCIN ETHYL SUCC (80 MG/ML PO SYG) GTB ×3 (05:51→22:06)
[2017-08-28] MEDS: PANTOPRAZOLE (EC) 40 MG TAB PO (05:51)
[2017-08-28 05:54] LABS: ADD MAN DIFF? NO
[2017-08-28 05:59] LABS: WHITE BLOOD COUNT 10.6 10^3/ul (4.8-10.8)
[2017-08-28 05:59] LABS: BASOPHILS % 0.3 % (0.0-2.0); EOSINOPHILS # 0.1 10^3/ul (0.0-0.5); EOSINOPHILS % 0.7 % (0.0-7.0); HEMATOCRIT 33.2 % (42.0-52.0); HEMOGLOBIN 10.6 g/dl (14.0-18.0); LYMPHOCYTES # 1.9 10^3/ul (0.8-2.9); LYMPHOCYTES % 18.2 % (15.0-51.0); MEAN CORPUSCULAR HEMOGLOBIN 29.7 pg (29.0-33.0); MEAN CORPUSCULAR HGB CONC 31.9 g/dl (32.0-37.0); MEAN PLATELET VOLUME 11.2 fl (7.4-10.4); MONOCYTE # 0.9 10^3/ul (0.3-0.9); NEUTROPHIL # 7.7 10^3/ul (1.6-7.5); NEUTROPHILS % 72.4 % (39.0-77.0); PLATELET COUNT 224 10^3/UL (140-415); RED BLOOD COUNT 3.57 10^6/ul (4.70-6.10); RED CELL DISTRIBUTION WIDTH 16.3 % (11.5-14.5)
[2017-08-28] MEDS: INSULIN ASPART [NOVOLOG] 3 ML PEN SC ×5 (06:00→23:25)
[2017-08-28 06:50] LABS: ANION GAP 13 (8-16); BLOOD UREA NITROGEN 17 mg/dl (7-20); CALCIUM 8.1 mg/dl (8.4-10.2); CARBON DIOXIDE 26 mmol/L (21-31); CHLORIDE 105 mmol/L (97-110); CREATININE 0.54 mg/dl (0.61-1.24); GLUCOSE 161 mg/dl (70-220); POTASSIUM 3.5 mmol/L (3.5-5.1); SODIUM 140 mmol/L (135-144)
[2017-08-28] MEDS: LEVETIRACETAM (100 MG/ML) 5ML CUP GTB ×2 (10:02→22:06)
[2017-08-28] MEDS: NYSTATIN 30 GM POWDER BTL TOP ×2 (10:03→22:06)
[2017-08-28] MEDS: COLLAGENASE 30 GM TUBE TOP (10:03)
[2017-08-28] MEDS: FAMOTIDINE 20 MG TAB GTB (22:06)
[2017-08-29] MEDS: IPRATROPIUM (NEB) 0.5 MG/2.5 ML AMP HHN ×4 (01:02→20:08)
[2017-08-29] MEDS: LEVALBUTEROL (NEB) 0.63 MG/3 ML AMP HHN ×4 (01:02→20:08)
[2017-08-29] MEDS: PANTOPRAZOLE (EC) 40 MG TAB PO (05:56)
[2017-08-29] MEDS: METOCLOPRAMIDE 10 MG INJ IV ×3 (05:56→17:48)
[2017-08-29] MEDS: ERYTHROMYCIN ETHYL SUCC (80 MG/ML PO SYG) GTB ×3 (05:56→21:12)
[2017-08-29] MEDS: INSULIN ASPART [NOVOLOG] 3 ML PEN SC ×3 (06:00→17:51)
[2017-08-29 08:13] LABS: ADD MAN DIFF? NO
[2017-08-29 08:28] LABS: BASOPHILS % 0.4 % (0.0-2.0); EOSINOPHILS # 0.1 10^3/ul (0.0-0.5); EOSINOPHILS % 0.9 % (0.0-7.0); HEMATOCRIT 33.8 % (42.0-52.0); HEMOGLOBIN 10.5 g/dl (14.0-18.0); LYMPHOCYTES # 1.8 10^3/ul (0.8-2.9); LYMPHOCYTES % 17.4 % (15.0-51.0); MEAN CORPUSCULAR HEMOGLOBIN 29.7 pg (29.0-33.0); MEAN CORPUSCULAR HGB CONC 31.1 g/dl (32.0-37.0); MEAN CORPUSCULAR VOLUME 95.5 fl (82.0-101.0); MEAN PLATELET VOLUME 12.5 fl (7.4-10.4); MONOCYTE # 0.8 10^3/ul (0.3-0.9); MONOCYTES % 7.7 % (0.0-11.0); NEUTROPHIL # 7.6 10^3/ul (1.6-7.5); NEUTROPHILS % 73.1 % (39.0-77.0); PLATELET COUNT 175 10^3/UL (140-415); RED BLOOD COUNT 3.54 10^6/ul (4.70-6.10); RED CELL DISTRIBUTION WIDTH 16.1 % (11.5-14.5)
[2017-08-29 08:28] LABS: WHITE BLOOD COUNT 10.4 10^3/ul (4.8-10.8)
[2017-08-29 08:47] LABS: ANION GAP 13 (8-16); BLOOD UREA NITROGEN 19 mg/dl (7-20); CALCIUM 8.3 mg/dl (8.4-10.2); CARBON DIOXIDE 27 mmol/L (21-31); CHLORIDE 105 mmol/L (97-110); CREATININE 0.51 mg/dl (0.61-1.24); GLUCOSE 147 mg/dl (70-220); POTASSIUM 3.7 mmol/L (3.5-5.1); SODIUM 141 mmol/L (135-144)
[2017-08-29] MEDS: COLLAGENASE 30 GM TUBE TOP (09:29)
[2017-08-29] MEDS: LEVETIRACETAM (100 MG/ML) 5ML CUP GTB ×2 (09:29→21:12)
[2017-08-29] MEDS: NYSTATIN 30 GM POWDER BTL TOP ×2 (09:29→21:13)
[2017-08-29] MEDS: INSULIN GLARGINE [LANtus] 3 ML PEN SC (13:16)
[2017-08-29] MEDS: FAMOTIDINE 20 MG TAB GTB (21:12)
[2017-08-30] MEDS: INSULIN GLARGINE [LANtus] 3 ML PEN SC ×3 (00:02→23:58)
[2017-08-30] MEDS: METOCLOPRAMIDE 10 MG INJ IV ×3 (00:07→12:13)
[2017-08-30] MEDS: IPRATROPIUM (NEB) 0.5 MG/2.5 ML AMP HHN ×4 (01:23→19:53)
[2017-08-30] MEDS: LEVALBUTEROL (NEB) 0.63 MG/3 ML AMP HHN ×4 (01:23→19:53)
[2017-08-30] MEDS: ERYTHROMYCIN ETHYL SUCC (80 MG/ML PO SYG) GTB ×3 (05:25→21:44)
[2017-08-30] MEDS: PANTOPRAZOLE (EC) 40 MG TAB PO (05:25)
[2017-08-30] MEDS: INSULIN ASPART [NOVOLOG] 3 ML PEN SC ×5 (05:30→23:52)
[2017-08-30 06:13] LABS: ADD MAN DIFF? NO
[2017-08-30 06:28] LABS: WHITE BLOOD COUNT 10.4 10^3/ul (4.8-10.8)
[2017-08-30 06:28] LABS: BASOPHILS % 0.4 % (0.0-2.0); EOSINOPHILS # 0.1 10^3/ul (0.0-0.5); HEMATOCRIT 32.4 % (42.0-52.0); HEMOGLOBIN 10.2 g/dl (14.0-18.0); LYMPHOCYTES # 2.3 10^3/ul (0.8-2.9); LYMPHOCYTES % 22.4 % (15.0-51.0); MEAN CORPUSCULAR HEMOGLOBIN 29.5 pg (29.0-33.0); MEAN CORPUSCULAR HGB CONC 31.5 g/dl (32.0-37.0); MEAN CORPUSCULAR VOLUME 93.6 fl (82.0-101.0); MEAN PLATELET VOLUME 11.3 fl (7.4-10.4); MONOCYTE # 0.8 10^3/ul (0.3-0.9); MONOCYTES % 7.9 % (0.0-11.0); NEUTROPHIL # 7.1 10^3/ul (1.6-7.5); NEUTROPHILS % 67.8 % (39.0-77.0); PLATELET COUNT 228 10^3/UL (140-415); RED BLOOD COUNT 3.46 10^6/ul (4.70-6.10)
[2017-08-30 08:51] LABS: ANION GAP 10 (8-16); BLOOD UREA NITROGEN 19 mg/dl (7-20); CALCIUM 8.2 mg/dl (8.4-10.2); CARBON DIOXIDE 30 mmol/L (21-31); CHLORIDE 103 mmol/L (97-110); CREATININE 0.56 mg/dl (0.61-1.24); GLUCOSE 143 mg/dl (70-220); MAGNESIUM 1.9 mg/dl (1.7-2.5); POTASSIUM 3.4 mmol/L (3.5-5.1); SODIUM 140 mmol/L (135-144)
[2017-08-30] MEDS: LEVETIRACETAM (100 MG/ML) 5ML CUP GTB ×2 (09:27→20:52)
[2017-08-30] MEDS: NYSTATIN 30 GM POWDER BTL TOP ×2 (09:27→20:52)
[2017-08-30] MEDS: COLLAGENASE 30 GM TUBE TOP (09:28)
[2017-08-30] MEDS: POTASSIUM CHLORIDE 20 MEQ POWDER FOR ORAL SOLN GTB (18:15)
[2017-08-30] MEDS: METOCLOPRAMIDE (1 MG/ML) 10 ML CUP GTB ×2 (18:15→23:52)
[2017-08-30] MEDS: FAMOTIDINE 20 MG TAB GTB (20:52)
[2017-08-31] MEDS: LEVALBUTEROL (NEB) 0.63 MG/3 ML AMP HHN ×4 (01:29→20:05)
[2017-08-31] MEDS: IPRATROPIUM (NEB) 0.5 MG/2.5 ML AMP HHN ×4 (01:29→20:05)
[2017-08-31] MEDS: INSULIN ASPART [NOVOLOG] 3 ML PEN SC ×3 (06:00→18:18)
[2017-08-31] MEDS: PANTOPRAZOLE (EC) 40 MG TAB PO (06:14)
[2017-08-31] MEDS: METOCLOPRAMIDE (1 MG/ML) 10 ML CUP GTB ×3 (06:14→17:39)
[2017-08-31] MEDS: ERYTHROMYCIN ETHYL SUCC (80 MG/ML PO SYG) GTB ×3 (06:14→21:03)
[2017-08-31 07:33] LABS: ADD MAN DIFF? NO
[2017-08-31 07:37] LABS: BASOPHIL # 0.1 10^3/ul (0.0-0.1); BASOPHILS % 0.4 % (0.0-2.0); EOSINOPHILS # 0.1 10^3/ul (0.0-0.5); EOSINOPHILS % 0.9 % (0.0-7.0); HEMATOCRIT 30.8 % (42.0-52.0); HEMOGLOBIN 9.8 g/dl (14.0-18.0); LYMPHOCYTES # 2.1 10^3/ul (0.8-2.9); LYMPHOCYTES % 18.4 % (15.0-51.0); MEAN CORPUSCULAR HEMOGLOBIN 29.7 pg (29.0-33.0); MEAN CORPUSCULAR HGB CONC 31.8 g/dl (32.0-37.0); MEAN CORPUSCULAR VOLUME 93.3 fl (82.0-101.0); MEAN PLATELET VOLUME 11.2 fl (7.4-10.4); MONOCYTE # 0.8 10^3/ul (0.3-0.9); NEUTROPHIL # 8.1 10^3/ul (1.6-7.5); NEUTROPHILS % 72.8 % (39.0-77.0); PLATELET COUNT 197 10^3/UL (140-415); RED CELL DISTRIBUTION WIDTH 15.9 % (11.5-14.5)
[2017-08-31 07:37] LABS: WHITE BLOOD COUNT 11.2 10^3/ul (4.8-10.8)
[2017-08-31] MEDS: NYSTATIN 30 GM POWDER BTL TOP ×2 (10:43→21:04)
[2017-08-31] MEDS: LEVETIRACETAM (100 MG/ML) 5ML CUP GTB ×2 (10:43→21:03)
[2017-08-31] MEDS: COLLAGENASE 30 GM TUBE TOP (10:44)
[2017-08-31] MEDS: INSULIN GLARGINE [LANtus] 3 ML PEN SC (12:00)
[2017-08-31 17:22] LABS: ANION GAP 10 (8-16); BLOOD UREA NITROGEN 15 mg/dl (7-20); CALCIUM 8.1 mg/dl (8.4-10.2); CARBON DIOXIDE 28 mmol/L (21-31); CHLORIDE 105 mmol/L (97-110); CREATININE 0.49 mg/dl (0.61-1.24); GLUCOSE 157 mg/dl (70-220); POTASSIUM 3.6 mmol/L (3.5-5.1); SODIUM 139 mmol/L (135-144)
[2017-08-31] MEDS: FAMOTIDINE 20 MG TAB GTB (21:03)
[2017-09-01] MEDS: METOCLOPRAMIDE (1 MG/ML) 10 ML CUP GTB ×4 (00:25→17:42)
[2017-09-01] MEDS: INSULIN GLARGINE [LANtus] 3 ML PEN SC ×2 (00:30→12:56)
[2017-09-01] MEDS: INSULIN ASPART [NOVOLOG] 3 ML PEN SC ×4 (00:30→17:48)
[2017-09-01] MEDS: LEVALBUTEROL (NEB) 0.63 MG/3 ML AMP HHN ×4 (02:09→19:25)
[2017-09-01] MEDS: IPRATROPIUM (NEB) 0.5 MG/2.5 ML AMP HHN ×4 (02:09→19:25)
[2017-09-01] MEDS: ERYTHROMYCIN ETHYL SUCC (80 MG/ML PO SYG) GTB ×3 (05:25→21:54)
[2017-09-01] MEDS: PANTOPRAZOLE (EC) 40 MG TAB PO (05:25)
[2017-09-01 06:30] LABS: ADD MAN DIFF? NO
[2017-09-01 06:36] LABS: BASOPHILS % 0.4 % (0.0-2.0); EOSINOPHILS # 0.1 10^3/ul (0.0-0.5); EOSINOPHILS % 0.9 % (0.0-7.0); HEMATOCRIT 32.4 % (42.0-52.0); HEMOGLOBIN 10.4 g/dl (14.0-18.0); LYMPHOCYTES # 2.1 10^3/ul (0.8-2.9); LYMPHOCYTES % 19.7 % (15.0-51.0); MEAN CORPUSCULAR HEMOGLOBIN 29.9 pg (29.0-33.0); MEAN CORPUSCULAR HGB CONC 32.1 g/dl (32.0-37.0); MEAN CORPUSCULAR VOLUME 93.1 fl (82.0-101.0); MEAN PLATELET VOLUME 11.2 fl (7.4-10.4); MONOCYTE # 0.6 10^3/ul (0.3-0.9); MONOCYTES % 6.1 % (0.0-11.0); NEUTROPHIL # 7.6 10^3/ul (1.6-7.5); NEUTROPHILS % 72.5 % (39.0-77.0); PLATELET COUNT 202 10^3/UL (140-415); RED BLOOD COUNT 3.48 10^6/ul (4.70-6.10)
[2017-09-01 06:36] LABS: WHITE BLOOD COUNT 10.5 10^3/ul (4.8-10.8)
[2017-09-01 07:11] LABS: MAGNESIUM 1.8 mg/dl (1.7-2.5)
[2017-09-01] MEDS: LEVETIRACETAM (100 MG/ML) 5ML CUP GTB ×2 (09:40→21:54)
[2017-09-01] MEDS: COLLAGENASE 30 GM TUBE TOP (09:40)
[2017-09-01] MEDS: NYSTATIN 30 GM POWDER BTL TOP ×2 (09:40→21:54)
[2017-09-01] MEDS: FAMOTIDINE 20 MG TAB GTB (21:54)
[2017-09-02] MEDS: METOCLOPRAMIDE (1 MG/ML) 10 ML CUP GTB ×3 (00:44→12:13)
[2017-09-02] MEDS: INSULIN GLARGINE [LANtus] 3 ML PEN SC ×2 (00:57→12:25)
[2017-09-02] MEDS: IPRATROPIUM (NEB) 0.5 MG/2.5 ML AMP HHN ×3 (02:20→12:52)
[2017-09-02] MEDS: LEVALBUTEROL (NEB) 0.63 MG/3 ML AMP HHN ×3 (02:20→12:52)
[2017-09-02] MEDS: PANTOPRAZOLE (EC) 40 MG TAB PO (06:26)
[2017-09-02] MEDS: ERYTHROMYCIN ETHYL SUCC (80 MG/ML PO SYG) GTB ×2 (06:26→14:16)
[2017-09-02] MEDS: INSULIN ASPART [NOVOLOG] 3 ML PEN SC ×3 (06:41→12:00)
[2017-09-02 07:02] LABS: ANION GAP 14 (8-16); BLOOD UREA NITROGEN 18 mg/dl (7-20); CALCIUM 8.1 mg/dl (8.4-10.2); CARBON DIOXIDE 27 mmol/L (21-31); CHLORIDE 104 mmol/L (97-110); GLUCOSE 172 mg/dl (70-220); MAGNESIUM 1.8 mg/dl (1.7-2.5); POTASSIUM 3.2 mmol/L (3.5-5.1); SODIUM 142 mmol/L (135-144)
[2017-09-02] MEDS: LEVETIRACETAM (100 MG/ML) 5ML CUP GTB (10:41)
[2017-09-02] MEDS: NYSTATIN 30 GM POWDER BTL TOP (11:28)
[2017-09-02] MEDS: COLLAGENASE 30 GM TUBE TOP (11:34)
== END 2017-09-02 15:50 | DRG 417 ==
LOC: MS2 06-16 11:48 → ICU 07-12 16:00 → MS2 08-25 17:22 → ICU 06-10 10:40 → TEL 07-15 22:51 → ICU 06-10 20:41
PROVIDERS: Internal Medicine
PROC: 0FJB8ZZ Inspection of Hepatobiliary Duct, Via Natural or Artificial Opening Endoscopic (ICD-10-PCS; 2017-05-31 12:00)
PROC: 0FT44ZZ Resection of Gallbladder, Percutaneous Endoscopic Approach (ICD-10-PCS; principal; 2017-05-31 12:06)
PROC: 0FC98ZZ Extirpation of Matter from Common Bile Duct, Via Natural or Artificial Opening Endoscopic (ICD-10-PCS; 2017-05-31 12:06)
PROC: 0FPB8DZ Removal of Intraluminal Device from Hepatobiliary Duct, Via Natural or Artificial Opening Endoscopic (ICD-10-PCS; 2017-05-31 12:06)
PROC: 0DNU4ZZ Release Omentum, Percutaneous Endoscopic Approach (ICD-10-PCS; 2017-05-31 12:06)
PROC: 0WQF0ZZ Repair Abdominal Wall, Open Approach (ICD-10-PCS; 2017-05-31 12:06)
PROC: 0D164ZA Bypass Stomach to Jejunum, Percutaneous Endoscopic Approach (ICD-10-PCS; 2017-05-31 12:06)
PROC: 02HV33Z Insertion of Infusion Device into Superior Vena Cava, Percutaneous Approach (ICD-10-PCS; 2017-05-31 12:06)
PROC: 05HM33Z Insertion of Infusion Device into Right Internal Jugular Vein, Percutaneous Approach (ICD-10-PCS; 2017-05-31 12:06)
PROC: 0F9930Z Drainage of Common Bile Duct with Drainage Device, Percutaneous Approach (ICD-10-PCS; 2017-05-31 12:06)
PROC: 0F798DZ Dilation of Common Bile Duct with Intraluminal Device, Via Natural or Artificial Opening Endoscopic (ICD-10-PCS; 2017-05-31 12:06)
PROC: 0D20XUZ Change Feeding Device in Upper Intestinal Tract, External Approach (ICD-10-PCS; 2017-05-31 12:06)
PROC: 0FC94ZZ Extirpation of Matter from Common Bile Duct, Percutaneous Endoscopic Approach (ICD-10-PCS; 2017-05-31 12:06)
PROC: 5A1945Z Respiratory Ventilation, 24-96 Consecutive Hours (ICD-10-PCS; 2017-05-31 12:06)
PROC: 0B21XFZ Change Tracheostomy Device in Trachea, External Approach (ICD-10-PCS; 2017-05-31 12:06)
DX: K80.67 Calculus of gallbladder and bile duct with acute and chronic cholecystitis with obstruction (principal); A41.51 Sepsis due to Escherichia coli [E. coli]; R65.21 Severe sepsis with septic shock; E43 Unspecified severe protein-calorie malnutrition; J69.0 Pneumonitis due to inhalation of food and vomit; G93.1 Anoxic brain damage, not elsewhere classified; J96.11 Chronic respiratory failure with hypoxia; L89.893 Pressure ulcer of other site, stage 3; K82.2 Perforation of gallbladder; J15.8 Pneumonia due to other specified bacteria; J96.12 Chronic respiratory failure with hypercapnia; K63.2 Fistula of intestine; Z68.1 Body mass index [BMI] 19.9 or less, adult; K56.7 Ileus, unspecified; B37.49 Other urogenital candidiasis; K83.0 Cholangitis; K86.1 Other chronic pancreatitis; K94.23 Gastrostomy malfunction; N39.0 Urinary tract infection, site not specified; J95.01 Hemorrhage from tracheostomy stoma; K22.10 Ulcer of esophagus without bleeding; K59.39 Other megacolon; K31.84 Gastroparesis; E11.43 Type 2 diabetes mellitus with diabetic autonomic (poly)neuropathy; D64.9 Anemia, unspecified; I25.10 Atherosclerotic heart disease of native coronary artery without angina pectoris; D69.6 Thrombocytopenia, unspecified; K66.0 Peritoneal adhesions (postprocedural) (postinfection); Y83.3 Surgical operation with formation of external stoma as the cause of abnormal reaction of the patient, or of later complication, without mention of misadventure at the time of the procedure; G40.909 Epilepsy, unspecified, not intractable, without status epilepticus; B96.5 Pseudomonas (aeruginosa) (mallei) (pseudomallei) as the cause of diseases classified elsewhere; K59.00 Constipation, unspecified; E87.6 Hypokalemia; Y83.8 Other surgical procedures as the cause of abnormal reaction of the patient, or of later complication, without mention of misadventure at the time of the procedure; Y92.238 Other place in hospital as the place of occurrence of the external cause; Z79.4 Long term (current) use of insulin; Z86.74 Personal history of sudden cardiac arrest; Z95.1 Presence of aortocoronary bypass graft
CPT/HCPCS: 36430; 36569; 36600; 71010; 74000; 74176; 74181; 74250; 74330; 75984; 76705; 76937; 80048; 80053; 80061; 80076; 80150; 80202; 81001; 81003; 82150; 82565; 82803; 82947; 82962; 83036; 83605; 83690; 83735; 83880; 84100; 84134; 84145; 84443; 84478; 84520; 85014; 85018; 85025; 85049; 85610; 85730; 86644; 86850; 86900; 86901; 86920; 87040; 87070; 87075; 87081; 87086; 88304; 89220; 93005; 94002; 94003; 94640; 94664